=== PATIENT | female | born 1990 ===

== ENCOUNTER → 2020-06-11 12:51 | Outpatient (BNVA) | payer OTHER, SELFPAY | PROVIDERS: PCP Nurse Practitioner Family; Visit Provider Dietitian, Registered | DX: Z76.89 Persons encountering health services in other specified circumstances (principal) ==

== ENCOUNTER → 2020-06-23 13:27 | Outpatient (BNVA) | payer OTHER, SELFPAY | PROVIDERS: PCP Family Medicine; Referring Provider Family Medicine; Visit Provider Dietitian, Registered | DX: Z76.89 Persons encountering health services in other specified circumstances (principal) ==

== ENCOUNTER → 2020-06-25 11:29 | Outpatient (BNVA) | payer OTHER, SELFPAY | PROVIDERS: PCP Nurse Practitioner Family; Referring Provider Nurse Practitioner Family; Visit Provider Physician Assistant | DX: Z01.818 Encounter for other preprocedural examination (principal) | CPT/HCPCS: 99211 ==

== ENCOUNTER 2020-06-25 16:50 | Outpatient (REF) | payer OTHER, SELFPAY ==
[2020-06-28 14:06] LABS: H Pylori Breath Test DETECTED (NOT DETECTED)
== END 2020-06-25 16:51 | disposition home or self-care (01) ==
LOC: HO.LNP 16:50
PROVIDERS: Visit Provider Physician Assistant
DX: A04.8 Other specified bacterial intestinal infections (principal)
CPT/HCPCS: 83013

== ENCOUNTER → 2020-07-26 07:43 | Outpatient (BNVA) | payer OTHER, SELFPAY | PROVIDERS: Visit Provider Physician Assistant | DX: Z76.89 Persons encountering health services in other specified circumstances (principal) ==

== ENCOUNTER → 2020-08-24 08:32 | Outpatient (BNVA) | payer OTHER, SELFPAY | PROVIDERS: PCP Nurse Practitioner Family; Visit Provider Physician Assistant | DX: Z76.89 Persons encountering health services in other specified circumstances (principal) ==

== ENCOUNTER 2020-11-06 12:40 | Emergency (ER) | payer MEDICAID, SELFPAY ==
[2020-11-06] VITALS (7 sets, daily range): BP systolic 105–152; BP diastolic 66–97; PULSE 94–107; RESP 16–20; TEMP 36.9–37.4; O2SAT 99–100; BMI 27.1
--- NOTE | ~2020-11-06 | CT_ITS ---
EXAMINATION: CT ABDOMEN AND PELVIS WITHOUT CONTRAST CLINICAL INFORMATION: Status post liposuction, complains of diffuse drainage from incisional site. COMPARISON: CT scan of the abdomen and pelvis dated 09/05/2017. TECHNIQUE: Multidetector volumetric imaging was performed from the superior aspect of the liver through the pubic symphysis. Sagittal and coronal reformatted images were obtained on the technologist's workstation. Plaque of intravenous and oral contrast limits visceral evaluation. This CT examination was performed using dose optimization techniques as appropriate, variously including the following: *Automated exposure control *Adjustment of mA and/or kV according to patient size (this includes techniques or standardized protocols for targeted exams where dose is matched to indication/reason for exam; i.e. extremities or head) *Use of iterative reconstruction technique DLP: 628 mGy-cm FINDINGS: LUNG BASES: Mild bibasilar linear atelectasis versus scarring is seen. No pleural or pericardial effusions. LIVER, GALLBLADDER, AND BILIARY TREE: No hepatic abnormality. Status post cholecystectomy. PANCREAS: Unremarkable. SPLEEN: Unremarkable. ADRENAL GLANDS: Unremarkable. KIDNEYS AND URETERS: Unremarkable. BLADDER: Unremarkable. GASTROINTESTINAL TRACT: Gastric postsurgical changes. The small bowel, appendix and large bowel are unremarkable. ABDOMINAL WALL: Diffuse subcutaneous air and infiltrative changes are seen throughout the visualized soft tissues extending superiorly from the inferior aspect of the right breast inferiorly to the level of the anterior left thigh. Air is also seen tracking between the left external and internal oblique muscles as well as subjacent to the left transversus abdominis muscle laterally. A definitive focal fluid collection is not seen. LYMPH NODES: No lymphadenopathy. VASCULAR: Unremarkable. PELVIC VISCERA: Anteverted/anteflexed uterus containing an IUD without associated abnormality. Mild free fluid in the cul-de-sac. OSSEOUS STRUCTURES: Unremarkable. CT/CT abdomen pelvis wo con IMPRESSION: 1. No significant intra-abdominal/pelvic abnormality. 2. Diffuse subcutaneous air and infiltrative changes in the visualized soft tissues as detailed above. Air is also seen tracking between the left internal/external oblique muscles as well as subjacent to the left transversus abdominis muscle. A definitive focal fluid collection is not seen. These findings are all presumed to be secondary to the patient's recent liposuction procedure. If findings persist or worsen, repeat CT scan is recommended to assess for change.
--- NOTE | 2020-11-06 14:30 | ED_ITS ---
HPI - General Adult General Chief complaint: General Medical Stated complaint: dizziness Time Seen by Provider: 11/06/20 14:13 Source: patient Mode of arrival: ambulatory Limitations: no limitations History of Present Illness HPI narrative: Patient comes emergency room complaining of dizziness/lightheadedness when she stands up. Patient states yesterday she had 360 liposuction , breast left with implants. Patient states that every time she stands up, she turns pale, feels lightheaded, thinks she is going to pass out. Patient states she has history of anemia, she has had multiple blood transfusions in the past. Also complaining of copious drainage from the incision sites in the pelvis. Patient denies fever or chills. Related Data Home Medications Medication Instructions Recorded Confirmed Celebrate MVI PO 07/26/20 Celebrate calcium PO 07/26/20 paroxetine HCl 20 mg tablet 20 mg PO DAILY 07/26/20 07/26/20 Allergies Allergy/AdvReac Type Severity Reaction Status Date / Time doxycycline [DOXYCYCLINE] Allergy Intermediate RASH/HIVES Verified 11/06/20 14:41 ?penicillin Allergy Unknown Unknown Uncoded 11/06/20 14:41 Review of Systems Review of Systems: Constitutional : No Weight loss, No Fever, No Chills, No Night Sweats, No Fatigue, No Malaise ENT/Mouth : No Hearing loss, No Ear Pain, No Nasal Congestion, No Sinus Pain, No Hoarseness, No sore throat, No Rhinorrhea, No Swallowing Difficulty Eyes: No Eye Pain, No Swelling, No Redness, No Foreign Body, No Discharge, No Vision Changes Cardiovascular : No Chest Pain, No SOB, No Dyspnea on Exertion, No Orthopnea, No Edema, No Palpitations Respiratory : No Cough, No Sputum, No Wheezing, No Smoke Exposure, No Dyspnea Gastrointestinal : Complaining of Nausea, No Vomiting, No Diarrhea, No Constipation, No abdominal Pain, No Hematochezia, No Melena Genitourinary : no irregular bleeding, No Dysuria, No Urinary Frequency, No Hematuria, No Urinary Incontinence, No Urgency, No Flank Pain, No Urinary Flow Changes, No Hesitancy Musculoskeletal : No joint pain, No Myalgias, No Joint Swelling Skin : Healing and draining incisions in abdomen and breast Neuro : No Weakness, No Numbness, No Paresthesias, No Loss of Consciousness, No Dizziness, No Headache Psych : No Anxiety/Panic, No Depression, No SI/HI/AH/VH, No Social Issues, Heme/Lymph: No Bruising, No Bleeding,No Lymphadenopathy Endocrine : No Polyuria, No Polydipsia, No Temperature Intolerance [facility] Past Medical History Medical History Intestinal malabsorption following gastrectomy Overweight (BMI 25.0-29.9) Surgical History History of sleeve gastrectomy Hx of carpal tunnel repair Hx of cholecystectomy S/P laparoscopic sleeve gastrectomy Family History Family History (Updated 07/19/20 @ 16:10 by Yudy Sosa MA) Father No problems noted. Mother High cholesterol Diabetes mellitus CVD (cardiovascular disease) Arthritis Brother No problems noted. Brother No problems noted. Sister No problems noted. Daughter No problems noted. Social History Social History (Updated 07/19/20 @ 16:10 by Yudy Sosa MA) Alcohol intake: never Smoking Status: Never smoker Smoked in Last 30 Days: No Use of substances other than those prescribed or required for medical reasons: No Advance Directives: No Advance Directives Information Provided: Yes Physical Exam Vital Signs: Vital Signs: Last Vital Signs Temp 98.5 F 11/06/20 15:32 Pulse 94 11/06/20 16:32 Resp 20 11/06/20 16:32 BP 105/70 11/06/20 16:32 Pulse Ox 100 11/06/20 16:32 Body Mass Index 27.1 Appearance: Alert. Oriented X3. No acute distress. Eyes: Pupils equal, round and reactive to light. ENT: Pharynx normal. Neck: Normal inspection. Neck supple. No lymph nodes noted. No crepitus CVS: Normal heart rate and rhythm. Pulses normal. Normal S1 and S2 Respiratory: No respiratory distress. Breath sounds normal. No Wheezing. No rales Abdomen: Soft tenderness over the suprapubic area over the incisional sites, No rigidity. No distention. Skin: Skin warm and dry. Multiple ecchymoses in abdomen and below the breasts, incision in the suprapubic area is draining mild to moderate amount of serosanguineous fluid when pressure is applied, no kim blood. Extremities: No lower extremity edema. No lower extremity edema. No Lacerations. No Rash Neuro: Oriented X 3. No motor deficit. No sensory deficit. Moving all extermities. No slurred speech. Course Course Course Narrative: Negative for the static vital signs. At this time, white blood cell count is 14.2, likely secondary to reactive leukocytosis, patient had surgery yesterday. Patient does not have fever, no chills, sepsis is not suspected at this time Patient may have a seroma. CT scan of the abdomen is pending. Sign-out given to Dr. Cordero. Medical Decision Making Lab Data Result diagrams: 11/06/20 14:40 11/06/20 14:40 Labs: Lab Results 11/06/20 11/06/20 Range/Units 14:40 14:40 WBC 14.2 H (4.8-10.8) X10*3/uL RBC 3.41 L (4.20-5.50) X10*6/uL Hgb 9.2 L (12.0-16.0) g/dl Hct 28.8 L (37-47) % MCV 84.5 (80-98) fL MCH 27.0 (27.0-33.0) pg MCHC 31.9 (31.0-35.0) g/dl RDW 13.3 (11.0-16.0) % Plt Count 228 (160-400) X10*3/uL MPV 9.6 (9.4-12.3) fL Immature Gran % (Auto) 0.3 (0.0-0.4) % Neut % (Auto) 80.3 H (45-73) % Lymph % (Auto) 11.2 L (20-40) % [place] % (Auto) 8.0 (2-11) % Eos % (Auto) 0.0 (0-4) % Baso % (Auto) 0.2 (0-2) % Lymph # (Auto) 1.6 (1.2-4.9) X10*3/uL [place] # (Auto) 1.1 (0.1-1.2) X10*3/uL Eos # (Auto) 0.0 (0.0-0.4) X10*3/uL Baso # (Auto) 0.0 (0.0-0.2) X10*3/uL Abs Immat Gran (auto) 0.04 H (0.00-0.03) X10*3/uL Absolute Neuts (auto) 11.4 H (2.0-8.3) X10*3/uL Absolute Nucleated RBC 0.000 (0.0-0.012) X10*3/uL Nucleated RBC % (auto) 0.0 (0.0-0.2) /100WBC Sodium 137 (135-145) mmol/L Potassium 4.1 (3.3-5.1) mmol/L Chloride 105 (96-108) mmol/L Carbon Dioxide 25 (22-29) mmol/L Anion Gap 11 L (12-20) BUN 10 (9-16) mg/dL Creatinine 0.68 (0.5-1.4) mg/dL Estim Creat Clear Calc 117.4 Estimated GFR > 60 Random Glucose 118 H (60-115) mg/dL Calcium 8.4 (8.4-10.2) mg/dL Beta HCG, Quant < 2 mIU/mL Discharge Plan Discharge Prescriptions: No Action paroxetine HCl 20 mg tablet 20 mg PO DAILY RF: 0 Celebrate MVI PO RF: 0 Celebrate calcium PO RF: 0
[2020-11-06] MEDS: 0.9 % Sodium Chloride 1,000 ML 999 ML IVCONT (14:40)
[2020-11-06 14:44] LABS: MANUAL DIFF FLAG NO
[2020-11-06] MEDS: ondansetron HCL 4 MG/2 ML VIAL IVPUSH (14:44)
[2020-11-06 14:53] LABS: Basophils Percent Auto 0.2 % (0-2); Hematocrit 28.8 % (37-47); Hemoglobin 9.2 g/dl (12.0-16.0); Imm Gran Abs Auto 0.04 X10*3/uL (0.00-0.03); Imm Gran Pct Auto 0.3 % (0.0-0.4); Lymphocytes Absolute Auto 1.6 X10*3/uL (1.2-4.9); Lymphocytes Percent Auto 11.2 % (20-40); Mean Corpuscular HGB Conc 31.9 g/dl (31.0-35.0); Mean Corpuscular Volume 84.5 fL (80-98); Mean Platelet Volume 9.6 fL (9.4-12.3); Monocytes Absolute Auto 1.1 X10*3/uL (0.1-1.2); Neutrophils Absolute Auto 11.4 X10*3/uL (2.0-8.3); Neutrophils Percent Auto 80.3 % (45-73); Platelet Count 228 X10*3/uL (160-400); Red Blood Count 3.41 X10*6/uL (4.20-5.50); Red Cell Distribution Width 13.3 % (11.0-16.0); White Blood Count 14.2 X10*3/uL (4.8-10.8)
[2020-11-06 15:18] LABS: Anion Gap 11 (12-20); Blood Urea Nitrogen 10 mg/dL (9-16); Calcium 8.4 mg/dL (8.4-10.2); Carbon Dioxide 25 mmol/L (22-29); Chloride 105 mmol/L (96-108); Creatinine Clr Calc Pharmacy 117.4; Estimated Glomerular Filt Rate > 60; Glucose Random 118 mg/dL (60-115); Potassium 4.1 mmol/L (3.3-5.1); Sodium 137 mmol/L (135-145)
[2020-11-06 15:26] LABS: HCG Quantitative < 2 mIU/mL
[2020-11-06] MEDS: oxyCODONE HCl Immed Release 5 MG TABLET PO (18:07)
== END 2020-11-06 18:15 | disposition home or self-care (01) ==
PROVIDERS: Emergency Provider Emergency Medicine; PCP Nurse Practitioner Family
DX: R42 Dizziness and giddiness (principal); G89.18 Other acute postprocedural pain; Z98.84 Bariatric surgery status
CPT/HCPCS: 36415; 74176; 80048; 84702; 85025; 96361; 96374; 99284; J2405

== ENCOUNTER 2021-01-26 09:00 | Emergency (ER) | payer MEDICAID, SELFPAY ==
--- NOTE | ~2021-01-26 | XR_ITS ---
EXAMINATION: XR RIBS, RIGHT CLINICAL INFORMATION: Right-sided pain COMPARISON: Chest radiographs 12/25/2018, 04/15/2018 TECHNIQUE: Frontal view chest and 3 views right ribs are obtained for a total of 4 views. FINDINGS: The lungs are clear. There is no pneumothorax, pleural reaction, airspace consolidation, or effusion. The heart is normal in size. The vascularity is normal. The hilar and mediastinal contours are unremarkable. There are numerous surgical clips overlying upper abdomen and some overlying right lateral chest wall soft tissues. The right ribs show no fracture or destructive process. No periostitis. XR/XR ribs RT min 3V w CXR1V IMPRESSION: Unremarkable examination.
--- NOTE | ~2021-01-26 | XR_ITS ---
EXAMINATION: XR LUMBOSACRAL SPINE CLINICAL INFORMATION: Pain COMPARISON: Radiographs lumbar spine 03/02/2016 TECHNIQUE: Three views of the lumbosacral spine. FINDINGS: There is normal lumbar segmentation with 5 nonrib-bearing lumbar vertebrae of normal height and normal lumbar lordosis. There is no lumbar vertebral compression or visible fracture. No destructive process. There is borderline disc narrowing L3-L4 with small anterior lumbar vertebral body spurring. No endplate sclerosis or erosive changes. The SI joints and visualized sacrum are unremarkable. There are multiple surgical clips upper abdomen. IUD seen overlying central pelvis. XR/XR lumbar spine 2-3V IMPRESSION: Unremarkable examination.
--- NOTE | 2021-01-26 09:21 | ED.ABDPAIN ---
HPI - Abdominal Pain General Chief Complaint: General Medical Stated Complaint: flank pain Time Seen by Provider: 01/26/21 09:21 Source: patient Mode of arrival: ambulatory Limitations: no limitations History of Present Illness MD elicited complaint: flank pain Pertinent past history: none Onset (ago): day(s) (2) Pain Consistency: constant Location: R flank Severity: moderate Quality: aching and dull Radiation: none Migration to: no migration Exacerbating factors: movement Relieving factors: rest Associated symptoms: denies other symptoms Related Data Home Medications Medication Instructions Recorded Confirmed Celebrate MVI PO 07/26/20 Celebrate calcium PO 07/26/20 paroxetine HCl 20 mg tablet 20 mg PO DAILY 07/26/20 07/26/20 Previous Rx's Medication Instructions Recorded cyclobenzaprine 10 mg PO TID PRN #14 tab 01/26/21 lidocaine 1 patch TOPICAL DAILY PRN #10 ea 01/26/21 Allergies Allergy/AdvReac Type Severity Reaction Status Date / Time doxycycline [DOXYCYCLINE] Allergy Intermediate RASH/HIVES Verified 11/06/20 14:41 ?penicillin Allergy Unknown Unknown Uncoded 11/06/20 14:41 Review of Systems Review of Systems Constitutional : No Weight loss, No Fever, No Chills, ENT/Mouth : No Hearing loss, No Ear Pain, No Nasal Congestion, No Sinus Pain, No Hoarseness, No sore throat, No Rhinorrhea, No Swallowing Difficulty Cardiovascular : No Chest Pain, No SOB Respiratory : No Cough, No Dyspnea Gastrointestinal : No Nausea, No Vomiting, No Diarrhea, No abdominal Pain, No Hematochezia, No Melena Genitourinary : No Dysuria, No Urinary Frequency, No Hematuria, No Urinary Incontinence, Musculoskeletal : positive back pain Skin : No Skin Lesions, No rash Neuro : No Weakness, No Numbness, No Paresthesias, no loss of bowel or bladder incontinence, no saddle anesthesia Physical Exam Vital Signs: Vital Signs: Last Vital Signs Temp 98.2 F 01/26/21 09:53 Pulse 73 01/26/21 09:53 Resp 18 01/26/21 09:53 BP 126/86 01/26/21 09:53 Pulse Ox 100 01/26/21 09:53 Body Mass Index 28.8 Appearance: Alert. Oriented X3. No acute distress. Eyes: Pupils equal, round and reactive to light. ENT: Pharynx normal. Neck: Normal inspection. Neck supple. CVS: Normal heart rate and rhythm. Pulses normal. Respiratory: No respiratory distress. Breath sounds normal. Abdomen: Soft and nontender. Back: ttp along R posterior ribs and R lower lumbar region lateral not midline Skin: Skin warm and dry. Normal skin color. Normal skin turgor. Extremities: No lower extremity edema. No calf ttp Neuro: Oriented X 3. No motor deficit. No sensory deficit. Course Course Course Narrative: negative UA and xrays seems unusual for renal colic stable for DC MDM - Abdominal Pain MDM Narrative Medical decision making narrative: 30 yo female atraumatic R back pain no b/b incontinence, no saddle anesthesia no AC therapy, no IVDA worse with movements, her abdomen is benign, no GI or symptoms ?strain at this time xrays orderd, UA ordered Lab Data Labs: Lab Results 01/26/21 01/26/21 Range/Units 09:53 09:53 Urine Color YELLOW Urine Appearance HAZY Urine pH 6.0 (5.0-8.0) Ur Specific [place] >= 1.030 H (1.005-1.025) Urine Protein NEG (NEG-TRACE) MG/DL Urine Glucose (UA) NEG (NEG) MG/DL Urine Ketones NEG (NEG) MG/DL Urine Blood TRACE (NEG) Urine Nitrite NEG (NEG) Ur Leukocyte Esterase NEG (NEG) Urine RBC 0-2 (0) /HPF Urine WBC 0-2 (0-4) /HPF Ur Squamous Epith Cells 3+ /LPF Urine Bacteria 2+ /LPF Urine Mucus 1+ /LPF Urine Test NEGATIVE (NEGATIVE) Discharge Plan Discharge Patient Disposition: Home, Self-Care Instructions: Acute Low Back Pain (ED) Additional Instructions: return to ED for any worsening symptoms or concerns Prescriptions: New cyclobenzaprine 10 mg tablet 10 mg PO TID PRN (Reason: muscle spasm) Qty: 14 RF: 0 lidocaine 4 % adhesive patch,medicated 1 patch topical DAILY PRN (Reason: pain) Qty: 10 RF: 0 No Action paroxetine HCl 20 mg tablet 20 mg PO DAILY RF: 0 Celebrate MVI PO RF: 0 Celebrate calcium PO RF: 0 Referrals: Physician,Unknown [Primary Care Provider] - 2 days (if not better) Stand Alone Forms: Work/School Release [facility] Past Medical History Attestation statement: The following information was validated with the patient. Medical History Intestinal malabsorption following gastrectomy Overweight (BMI 25.0-29.9) Surgical History History of sleeve gastrectomy Hx of carpal tunnel repair Hx of cholecystectomy S/P laparoscopic sleeve gastrectomy Family History Family History (Updated 07/19/20 @ 16:10 by Yudy Sosa MA) Father No problems noted. Mother High cholesterol Diabetes mellitus CVD (cardiovascular disease) Arthritis Brother No problems noted. Brother No problems noted. Sister No problems noted. Daughter No problems noted. Social History Social History (Updated 01/26/21 @ 09:35 by Mary Marshall DO) Alcohol intake: never Patient Tobacco Use Status: Never used Tobacco Advance Directives: Yes Advance Directives Information Provided: No Advance Directives on File: No Patient : No
[2021-01-26 09:53] VITALS: BP 126/86; PULSE 73; RESP 18; TEMP 36.8; O2SAT 100; BMI 28.8
[2021-01-26 10:08] LABS: Glucose Urine UA NEG (NEG); Leukocyte Esterase Urine NEG (NEG); Nitrite Urine NEG (NEG); Specific Gravity - Urine >= 1.030 (1.005-1.025); Urine Blood TRACE (NEG); Urine Ketones NEG (NEG); Urine Protein NEG (NEG-TRACE)
[2021-01-26 10:12] LABS: Appearance Urine HAZY; Color Urine YELLOW
[2021-01-26 10:13] LABS: UPreg QC Valid YES; Urine Pregnancy NEGATIVE (NEGATIVE)
[2021-01-26 10:44] LABS: Bacteria Urine 2+ /LPF; Mucus Urine 1+ /LPF; RBC Urine 0-2 /HPF (0); Squamous Epithelial Cell Urine 3+ /LPF; WBC Urine 0-2 /HPF (0-4)
== END 2021-01-26 11:20 | disposition home or self-care (01) ==
PROVIDERS: Emergency Provider Emergency Medicine
DX: M54.5 Low back pain (principal); Z98.84 Bariatric surgery status; Z90.49 Acquired absence of other specified parts of digestive tract
CPT/HCPCS: 71101; 72100; 81001; 81025; 99283

== ENCOUNTER 2021-03-11 11:31 | Outpatient (REF) | payer MEDICAID, SELFPAY | END 2021-03-11 11:32 | disposition home or self-care (01) | LOC: HO.LAB 11:31 | PROVIDERS: Visit Provider Internal Medicine | DX: Z20.822 Contact with and (suspected) exposure to COVID-19 (principal) | CPT/HCPCS: C9803; U0003; U0005 ==

== ENCOUNTER 2021-08-27 09:11 | Outpatient (REF) | payer MEDICAID, SELFPAY ==
[2021-08-27 09:51] LABS: COVID-19 Test Positive (Negative)
== END 2021-08-27 09:12 | disposition home or self-care (01) ==
LOC: HO.LAB 09:11
PROVIDERS: Visit Provider Internal Medicine
DX: Z20.822 Contact with and (suspected) exposure to COVID-19 (principal)
CPT/HCPCS: 36415; 87635; C9803

== ENCOUNTER 2021-10-18 11:31 | Outpatient (REF) | payer MEDICAID, SELFPAY ==
--- NOTE | ~2021-10-18 | XR_ITS ---
EXAMINATION: BILATERAL HIP X-RAY CLINICAL INFORMATION: Pain COMPARISON: None TECHNIQUE: 2 views of each hip FINDINGS: Bone alignment is normal. No fracture or dislocation is seen. The joint spaces are normal. There is an IUD in the pelvis. Soft tissues are otherwise normal. XR/XR hip RT min 2V IMPRESSION: Normal hip joints.
--- NOTE | ~2021-10-18 | XR_ITS ---
EXAMINATION: BILATERAL HIP X-RAY CLINICAL INFORMATION: Pain COMPARISON: None TECHNIQUE: 2 views of each hip FINDINGS: Bone alignment is normal. No fracture or dislocation is seen. The joint spaces are normal. There is an IUD in the pelvis. Soft tissues are otherwise normal. XR/XR hip LT min 2V IMPRESSION: Normal hip joints.
== END 2021-10-18 11:32 | disposition home or self-care (01) ==
LOC: HO.XRAY 11:31
PROVIDERS: PCP Internal Medicine; Visit Provider Internal Medicine
DX: M25.551 Pain in right hip (principal); M25.552 Pain in left hip
CPT/HCPCS: 73502

== ENCOUNTER → 2021-11-30 15:05 | Outpatient (BNVA) | payer MEDICAID, SELFPAY | PROVIDERS: PCP Internal Medicine; Referring Provider Physician Assistant; Visit Provider Physician Assistant Surgical | DX: E66.9 Obesity, unspecified (principal); Z68.31 Body mass index [BMI] 31.0-31.9, adult | CPT/HCPCS: 99212 ==

== ENCOUNTER 2021-12-01 11:09 | Outpatient (REF) | payer MEDICAID, SELFPAY ==
[2021-12-01 11:26] LABS: MANUAL DIFF FLAG NO
[2021-12-01 11:58] LABS: Basophils Absolute Auto 0.1 X10*3/uL (0.0-0.2); Basophils Percent Auto 0.8 % (0-2); Eosinophils Absolute Auto 0.4 X10*3/uL (0.0-0.4); Eosinophils Percent Auto 5.5 % (0-4); Hematocrit 39.5 % (37.0-47.0); Hemoglobin 12.3 g/dl (12.0-16.0); Imm Gran Abs Auto 0.01 X10*3/uL (0.00-0.03); Imm Gran Pct Auto 0.2 % (0.0-0.4); Lymphocytes Absolute Auto 2.1 X10*3/uL (1.2-4.9); Lymphocytes Percent Auto 33.4 % (20-40); Mean Corpuscular HGB Conc 31.1 g/dl (31.0-35.0); Mean Corpuscular Hemoglobin 26.6 pg (27.0-33.0); Mean Corpuscular Volume 85.5 fL (80.0-98.0); Mean Platelet Volume 9.8 fL (9.4-12.3); Monocytes Absolute Auto 0.5 X10*3/uL (0.1-1.2); Monocytes Percent Auto 7.1 % (2-11); Neutrophils Absolute Auto 3.4 x10*3/uL (2.0-8.3); Platelet Count 305 X10*3/uL (160-400); Red Blood Count 4.62 X10*6/uL (4.20-5.50); Red Cell Distribution Width 13.2 % (11.0-16.0); White Blood Count 6.4 X10*3/uL (4.8-10.8)
[2021-12-01 12:16] LABS: Anion Gap 12 (12-20); Blood Urea Nitrogen 14 mg/dL (9-16); C Reactive Protein 0.13 mg/dL (< or = 0.50); Calcium 9.7 mg/dL (8.4-10.2); Carbon Dioxide 28 mmol/L (22-29); Chloride 105 mmol/L (96-108); Cholesterol 178 mg/dL; Estimated Glomerular Filt Rate > 60; Glucose Random 83 mg/dL (60-115); HDL Cholesterol 44 mg/dL; Iron 104 mcg/dL (30-160); LDL Cholesterol Calculated 97 mg/dl; Percent Iron Saturation 28 % (15-50); Potassium 4.5 mmol/L (3.3-5.1); Sodium 140 mmol/L (135-145); Total Iron Binding Capacity 371 mcg/dL (228-428); Triglycerides 189 mg/dL; Unsaturated Iron Binding 267 ug/dL
[2021-12-01 12:31] LABS: TSH reflex Free T4 2.31 uIU/mL (0.32-4.0); Vitamin D 25-OH Total 27.6 ng/mL (>30)
[2021-12-01 12:55] LABS: Vitamin B12 175 pg/mL (200-900)
[2021-12-01 13:03] LABS: Ferritin 41 ng/mL (10-122)
[2021-12-02 15:00] LABS: Calcium (PTHI) 9.5 mg/dL (8.6-10.2); PTHI 62 pg/mL (16-77)
[2021-12-05 13:16] LABS: Vitamin B1 13 nmol/L (8-30)
[2021-12-06 12:17] LABS: Zinc 77 mcg/dL (60-130)
[2021-12-08 00:22] LABS: Vitamin A 48 mcg/dL (38-98)
== END 2021-12-01 11:10 | disposition home or self-care (01) ==
LOC: HO.LAB 11:09
PROVIDERS: PCP Internal Medicine; Visit Provider Physician Assistant Surgical
DX: E66.9 Obesity, unspecified (principal)
CPT/HCPCS: 36415; 80048; 80061; 82306; 82607; 82728; 82746; 83540; 83970; 84425; 84443; 84590; 84630; 85025; 86140

== ENCOUNTER 2022-04-21 10:51 | Outpatient (REF) | payer MEDICAID, SELFPAY ==
[2022-04-21 13:03] LABS: Syphilis Screen Nonreactive (Nonreactive)
[2022-04-21 21:35] LABS: CT PCR NOT DETECTED (Not Detect.); NG PCR NOT DETECTED (Not Detect.)
[2022-04-22 15:16] LABS: BV Int Neg Control Negative (Negative); BV Int Pos Control Positive (Positive)
[2022-04-24 03:39] LABS: HBc Num1 0.14 S/CO (0.00-0.79); HIV AB/AG Nonreactive (Nonreactive); HIV Num 1 0.06 S/CO (0.00-0.99); Hepatitis B Core Antibody Nonreactive (Nonreactive); ~Hepatitis C Antibody Nonreactive (Nonreactive)
== END 2022-04-21 10:52 | disposition home or self-care (01) ==
LOC: HO.LAB 10:51
PROVIDERS: PCP Internal Medicine; Visit Provider Advanced Practice Midwife
DX: Z30.432 Encounter for removal of intrauterine contraceptive device (principal); Z20.2 Contact with and (suspected) exposure to infections with a predominantly sexual mode of transmission; N89.8 Other specified noninflammatory disorders of vagina; E28.2 Polycystic ovarian syndrome
CPT/HCPCS: 36415; 58301; 86704; 86780; 86803; 87389; 87480; 87491; 87510; 87591; 87660

== ENCOUNTER → 2022-06-27 13:11 | Outpatient (BNVA) | payer MEDICAID, SELFPAY | PROVIDERS: PCP Internal Medicine; Referring Provider Internal Medicine; Visit Provider Physician Assistant Surgical | DX: E66.9 Obesity, unspecified (principal); K21.9 Gastro-esophageal reflux disease without esophagitis; Z98.84 Bariatric surgery status; Z68.31 Body mass index [BMI] 31.0-31.9, adult | CPT/HCPCS: 99212 ==

== ENCOUNTER 2023-06-05 10:54 | Outpatient (REF) | payer MEDICAID, SELFPAY | END 2023-06-05 10:55 | disposition home or self-care (01) | LOC: HO.HHCL 10:54 | PROVIDERS: Visit Provider Internal Medicine | DX: Z11.4 Encounter for screening for human immunodeficiency virus [HIV] (principal); Z11.3 Encounter for screening for infections with a predominantly sexual mode of transmission; N89.8 Other specified noninflammatory disorders of vagina | CPT/HCPCS: 0353U; 36415; 84702; 86704; 86706; 86709; 86780; 86803; 87340; 87389; 87480; 87510; 87660 ==

== ENCOUNTER 2023-07-24 13:25 | Outpatient (AMB) | payer MEDICAID, SELFPAY ==
--- NOTE | 2023-07-24 13:32 | A.OFFVIS_ITS ---
Intake VS Expanded 07/24/23 13:39 BP 138/90 H Blood Pressure Location Rt brachial Blood Pressure Position Sitting Pulse 80 Pulse Source Pulse Oximeter Temp 96.6 F L Temperature Source Temporal Artery Scan Pulse Oximetry 100 Oxygen Delivery Method Room Air Height 5 ft 5 in Weight 197 lb 12.8 oz BMI 32.9 Body Fat % 40.4 Body Fat Mass 79.8 Fat Free Mass 118.0 Visceral Fat Rating 8.0 Body Water % 42.8 Body Water Mass 84.6 Muscle Mass/Score 112.0 Basal Metabolic Rate/Score 1,652 Intake Visit Reasons: (OV) PO LSG 04/15/19 Allergies doxycycline [DOXYCYCLINE] Allergy (Intermediate, Verified 07/24/23 13:35) RASH/HIVES ?penicillin Allergy (Unknown, Uncoded 06/27/22 13:22) Unknown HPI HPI Comments History of Present Illness Details This?is a?32?yo female who is s/p LSG 04/15/2019. Presents for 4 year 3 month post op visit. Weight at last visit on 06/27/2022 was 189.4 pounds with a BMI of 31.5, weight today is 197.8 pounds, representing a 8.4 pound weight gain with a BMI today of 32.9.? No complaints of nausea, emesis, abdominal pain or reflux, or constipation. Was up to 206lbs a few weeks ago. Feels restriction lately when she eats. Somet imes skips meals. [place] better after a course of pantoprazole. Nonsmoker, rare EtOH, no NSAIDs. Present meal plan includes: nothing structured; will have salads with croutons and apples/avocados for dinner Exercise routine includes: nothing formal but active at work ([employer] [facility]) [facility] Medical History (Updated 06/27/22 @ 14:04 by BRENT Whittington) PCOS (polycystic ovarian syndrome) Intestinal malabsorption following gastrectomy Overweight (BMI 25.0-29.9) Surgical History (Updated 07/24/23 @ 13:36 by Jessica Nicole CMA) Hx of breast augmentation S/P laparoscopic sleeve gastrectomy History of sleeve gastrectomy Hx of carpal tunnel repair Hx of cholecystectomy Family History Father No problems noted. Mother High cholesterol Diabetes mellitus CVD (cardiovascular disease) Arthritis Brother Overdose Brother No problems noted. Sister No problems noted. Daughter No problems noted. 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 Proctor Code(s): Z98.84 - Bariatric surgery status Plan Pt still too low on protein intake. Recommended 2 shakes per day with 2 scoops each Celebrate 4:1, plus one small meal with protein and veg/salad. Reviewed not skipping meals and getting adequate protein intake to support weight loss and likely help intermittent stomach discomfort. Also encouraged resuming formal exercise as pt not currently doing any. Labs ordered. RTC 2 months. Meal plan texted to pt and encouraged her to reach out to me between appts with any concerns. Patient is obese and is not considered stable at this time. I spent a total of 30 minutes reviewing/updating records, examining the patient and counseling the patient on weight management as detailed above. Orders: Orders Insulin Today E66.9 - Obesity, unspecified, Z98.84 - Bariatric surgery status Hemoglobin A1c Today E66.9 - Obesity, unspecified, Z98.84 - Bariatric surgery status Complete Blood Count Auto Diff Today E66.9 - Obesity, unspecified, Z98.84 - Ravin atric surgery status Lipid Panel Today E66.9 - Obesity, unspecified, Z98.84 - Bariatric surgery status Vitamin B1 Today E66.9 - Obesity, unspecified, Z98.84 - Bariatric surgery status TSH reflex Free T4 Today E66.9 - Obesity, unspecified, Z98.84 - Bariatric surgery status Ferritin Today E66.9 - Obesity, unspecified, Z98.84 - Bariatric surgery status IRON PROFILE Today E66.9 - Obesity, unspecified, Z98.84 - Bariatric surgery status Comprehensive Met. Panel Today E66.9 - Obesity, unspecified, Z98.84 - Bariatric surgery status Vitamin B12 and Folate Today E66.9 - Obesity, unspecified, Z98.84 - Bariatric surgery status Zinc Today E66.9 - Obesity, unspecified, Z98.84 - Bariatric surgery status C Reactive Protein Today E66.9 - Obesity, unspecified, Z98.84 - Bariatric surgery status Vitamin A Today E66.9 - Obesity, unspecified, Z98.84 - Bariatric surgery status Vitamin D 25-OH Total Today E66.9 - Obesity, unspecified, Z98.84 - Bariatric surgery status Coding Level of Care Code Est Pt Level 4 (77589) Diagnoses Obesity (BMI 30-39.9) E66.9 S/P laparoscopic sleeve gastrectomy Z98.84
[2023-07-24 13:39] VITALS: BP 138/90; PULSE 80; TEMP 35.9; O2SAT 100; BMI 32.9
== END 2023-07-24 14:00 | disposition home or self-care (01) ==
PROVIDERS: PCP Internal Medicine; Visit Provider Physician Assistant Surgical
DX: E66.9 Obesity, unspecified (principal); Z98.84 Bariatric surgery status
CPT/HCPCS: 99214

== ENCOUNTER → 2023-07-24 13:25 | Outpatient (BNVA) | payer MEDICAID, SELFPAY | PROVIDERS: PCP Internal Medicine; Visit Provider Physician Assistant Surgical | DX: E66.9 Obesity, unspecified (principal); K90.49 Malabsorption due to intolerance, not elsewhere classified; E28.2 Polycystic ovarian syndrome; Z68.32 Body mass index [BMI] 32.0-32.9, adult; Z90.3 Acquired absence of stomach [part of] | CPT/HCPCS: 99212 ==

== ENCOUNTER 2023-07-25 13:56 | Outpatient (REF) | payer MEDICAID, SELFPAY ==
[2023-07-25 14:09] LABS: MANUAL DIFF FLAG NO
[2023-07-25 14:42] LABS: Basophils Absolute Auto 0.1 X10*3/uL (0.0-0.2); Basophils Percent Auto 0.9 % (0-2); Eosinophils Absolute Auto 0.2 X10*3/uL (0.0-0.4); Eosinophils Percent Auto 2.3 % (0-4); Hematocrit 38.9 % (37.0-47.0); Hemoglobin 12.5 g/dl (12.0-16.0); Imm Gran Abs Auto 0.02 X10*3/uL (0.00-0.03); Imm Gran Pct Auto 0.3 % (0.0-0.4); Lymphocytes Percent Auto 28.9 % (20-40); Mean Corpuscular HGB Conc 32.1 g/dl (31.0-35.0); Monocytes Absolute Auto 0.3 X10*3/uL (0.1-1.2); Monocytes Percent Auto 4.6 % (2-11); Neutrophils Absolute Auto 4.4 x10*3/uL (2.0-8.3); Platelet Count 317 X10*3/uL (160-400); Red Blood Count 4.63 X10*6/uL (4.20-5.50); Red Cell Distribution Width 13.5 % (11.0-16.0)
[2023-07-25 14:50] LABS: Estimated Average Glucose 120 mg/dL; Hemoglobin A1c % 5.8 % (<6.0)
[2023-07-25 15:21] LABS: Alanine Aminotransferase 11 U/L (0-31); Albumin Level 4.2 g/dL (3.5-5.0); Alkaline Phosphatase 59 U/L (39-117); Anion Gap 10 (12-20); Aspartate Amino Transferase 13 U/L (5-31); Bilirubin Total 0.4 mg/dL (0.0-1.0); Blood Urea Nitrogen 12 mg/dL (9-16); Calcium 9.5 mg/dL (8.4-10.2); Carbon Dioxide 30 mmol/L (22-29); Chloride 104 mmol/L (96-108); Cholesterol 160 mg/dL (<200); Estimated Glomerular Filt Rate > 60; Glucose Random 110 mg/dL (60-115); HDL Cholesterol 47 mg/dL (>40); Iron 67 mcg/dL (30-160); LDL Cholesterol Calculated 95 mg/dL (<100); Percent Iron Saturation 20 % (15-50); Potassium 3.6 mmol/L (3.3-5.1); Sodium 140 mmol/L (135-145); Total Iron Binding Capacity 340 mcg/dL (228-428); Total Protein 7.8 g/dL (6.5-8.0); Triglycerides 93 mg/dL (<150); Unsaturated Iron Binding 273 ug/dL
[2023-07-25 15:37] LABS: Ferritin 31 ng/mL (10-122); Insulin 17 uU/mL (2-29); TSH reflex Free T4 1.61 uIU/mL (0.32-4.0); Vitamin D 25-OH Total 29.5 ng/mL (>30)
[2023-07-25 15:48] LABS: Folate 10.9 ng/mL (> or = 4.0); Vitamin B12 241 pg/mL (200-900)
[2023-07-28 01:08] LABS: Zinc 84 mcg/dL (60-130)
[2023-07-28 22:39] LABS: Vitamin A 56 mcg/dL (38-98)
[2023-07-29 12:18] LABS: Vitamin B1 9 nmol/L (8-30)
== END 2023-07-25 13:57 | disposition home or self-care (01) ==
LOC: HO.LAB 13:56
PROVIDERS: PCP Internal Medicine; Visit Provider Physician Assistant Surgical
DX: E66.9 Obesity, unspecified (principal); Z98.84 Bariatric surgery status
CPT/HCPCS: 36415; 80053; 80061; 82306; 82607; 82728; 82746; 83036; 83525; 83540; 84425; 84443; 84590; 84630; 85025; 86140

== ENCOUNTER 2023-10-01 14:41 | Outpatient (REF) | payer MEDICAID, SELFPAY ==
[2023-10-01 16:21] LABS: MANUAL DIFF FLAG NO
[2023-10-01 17:00] LABS: Basophils Absolute Auto 0.1 X10*3/uL (0.0-0.2); Basophils Percent Auto 0.6 % (0-2); Eosinophils Absolute Auto 0.2 X10*3/uL (0.0-0.4); Eosinophils Percent Auto 2.3 % (0-4); Hematocrit 38.9 % (37.0-47.0); Hemoglobin 12.2 g/dl (12.0-16.0); Imm Gran Abs Auto 0.02 X10*3/uL (0.00-0.03); Imm Gran Pct Auto 0.3 % (0.0-0.4); Lymphocytes Absolute Auto 1.5 X10*3/uL (1.2-4.9); Lymphocytes Percent Auto 18.7 % (20-40); Mean Corpuscular HGB Conc 31.4 g/dl (31.0-35.0); Mean Corpuscular Volume 82.8 fL (80.0-98.0); Mean Platelet Volume 9.7 fL (9.4-12.3); Monocytes Absolute Auto 0.6 X10*3/uL (0.1-1.2); Monocytes Percent Auto 7.2 % (2-11); Neutrophils Absolute Auto 5.7 x10*3/uL (2.0-8.3); Neutrophils Percent Auto 70.9 % (45-73); Platelet Count 356 X10*3/uL (160-400); Red Cell Distribution Width 13.2 % (11.0-16.0)
[2023-10-01 17:18] LABS: Iron 90 mcg/dL (30-160); Percent Iron Saturation 25 % (15-50); Total Iron Binding Capacity 358 mcg/dL (228-428); Unsaturated Iron Binding 268 ug/dL
[2023-10-01 17:44] LABS: Folate 11.3 ng/mL (> or = 4.0); Vitamin B12 266 pg/mL (200-900)
[2023-10-02 07:41] LABS: HBS Num1 28.67 mIU/mL (0-7.99); HBc Num1 0.07 S/CO (0.00-0.79); HBsAGNum1 1.09 S/CO (0.00-0.99); HIV AB/AG Nonreactive (Nonreactive); HIV Num 1 0.14 S/CO (0.00-0.99); Hepatitis B Core Antibody Nonreactive (Nonreactive); ~HepC Num1 0.09 S/CO (0.00-0.79); ~Hepatitis A Antibody IgM Nonreactive (Nonreactive); ~Hepatitis B Surface Antibody REACTIVE (Nonreactive); ~Hepatitis C Antibody Nonreactive (Nonreactive)
[2023-10-02 09:07] LABS: HBsAGNum2 Nonreactive; HBsAGNum3 Nonreactive; Hepatitis B Surface Antigen NEGATIVE (Negative)
[2023-10-03 19:53] LABS: RPR Rapid Plasma Reagin NON-REACTIVE (NON-REACTIVE)
== END 2023-10-01 14:42 | disposition home or self-care (01) ==
LOC: HO.HHCL 14:41
PROVIDERS: Visit Provider Emergency Medicine
DX: I10 Essential (primary) hypertension (principal); Z72.51 High risk heterosexual behavior
CPT/HCPCS: 36415; 82607; 82746; 83540; 85025; 86592; 86704; 86706; 86709; 86803; 87340; 87389

== ENCOUNTER 2023-10-01 19:41 | Outpatient (REF) | payer MEDICAID, SELFPAY ==
[2023-10-04 00:08] LABS: C. trachomatis RNA TMA NOT DETECTED (NOT DETECTED); Candida glabrata RNA NOT DETECTED (NOT DETECTED); Candida species RNA DETECTED (NOT DETECTED); N. gonorrhoeae RNA TMA NOT DETECTED (NOT DETECTED); Trichomonas vaginalis RNA NOT DETECTED (NOT DETECTED)
== END 2023-10-01 19:42 | disposition home or self-care (01) ==
LOC: HO.HHCLNP 19:41
PROVIDERS: Visit Provider Emergency Medicine
DX: R05.9 Cough, unspecified (principal)
CPT/HCPCS: 36415; 81513; 82607; 82746; 83540; 85025; 86592; 86704; 86706; 86709; 86803; 87070; 87340; 87389; 87481; 87491; 87591; 87661

== ENCOUNTER 2024-01-17 10:26 | Outpatient (REF) | payer MEDICAID, SELFPAY ==
[2024-01-17 12:25] LABS: HIV AB/AG Nonreactive (Nonreactive); HIV Num 1 0.04 S/CO (0.00-0.99); ~Hepatitis C Antibody Nonreactive (Nonreactive)
[2024-01-17 12:26] LABS: Anion Gap 14 (12-20); Blood Urea Nitrogen 11 mg/dL (9-16); Calcium 9.3 mg/dL (8.4-10.2); Carbon Dioxide 28 mmol/L (22-29); Chloride 104 mmol/L (96-108); Estimated Glomerular Filt Rate > 60; Glucose Random 128 mg/dL (60-115); Potassium 3.7 mmol/L (3.3-5.1); Sodium 142 mmol/L (135-145)
[2024-01-18 05:48] LABS: CT PCR NOT DETECTED (Not Detect.); NG PCR NOT DETECTED (Not Detect.)
[2024-01-18 09:04] LABS: RPR Rapid Plasma Reagin NON-REACTIVE (NON-REACTIVE)
[2024-01-23 14:17] LABS: C. Trachomatis RNA TMA, Throat NOT DETECTED; N. gonorrhoeae RNA TMA, Throat NOT DETECTED
== END 2024-01-17 10:27 | disposition home or self-care (01) ==
LOC: HO.HHCL 10:26
PROVIDERS: Emergency Medicine; Visit Provider Family Medicine
DX: I10 Essential (primary) hypertension (principal); B37.31 Acute candidiasis of vulva and vagina; Z11.3 Encounter for screening for infections with a predominantly sexual mode of transmission
CPT/HCPCS: 0353U; 36415; 80048; 86592; 86803; 87086; 87389; 87491; 87591

== ENCOUNTER 2024-01-25 10:13 | Emergency (ER) | payer MEDICAID, SELFPAY ==
--- NOTE | ~2024-01-25 | XR_ITS ---
EXAMINATION: XR LUMBOSACRAL SPINE CLINICAL INFORMATION: Low back pain COMPARISON: 01/26/2021 TECHNIQUE: Three views of the lumbosacral spine. FINDINGS: There are 5 not ribs bearing vertebral bodies and lumbar spine. There is straightening of lumbar lordosis. Vertebral bodies are well aligned and intervertebral discs are preserved. There is no evidence of spondylolysis lysis or listhesis. Sacroiliac joints and pedicles are unremarkable. Soft tissues are normal. XR/XR lumbar spine 2-3V IMPRESSION: Straightening of lumbar lordosis likely related to muscle
[2024-01-25 10:21] VITALS: BP 152/92; PULSE 88; RESP 18; TEMP 36.6; O2SAT 99; BMI 35.3
--- NOTE | 2024-01-25 11:37 | ED.BACK ---
HPI - Back Pain/Injury General Chief Complaint: Back Pain/Injury Stated Complaint: lower back pain Time Seen by Provider: 01/25/24 11:31 Source: patient and RN notes reviewed Mode of arrival: ambulatory Limitations: no limitations History of Present Illness ED Provider: Becki Bowden PA-C HPI Narrative: This is a 33-year-old female who presents emergency department with complaints of low back pain x3 days. Patient states that she was bending over and felt a popping sensation in her low back. She has had pain in her low back since. She has been taking naproxen for her symptoms with some relief. Denies any numbness or tingling. Denies saddle anesthesia. Denies urinary or bowel incontinence or retention. Denies history of back pain in the past. Denies any chest pain, shortness for breath, abdominal pain, nausea, vomiting or diarrhea. Denies urinary symptoms. No other complaints or concerns at this time. MD elicited complaint: back pain and back injury Pertinent past history: prior back pain Timing: constant Similar Symptoms Previously: No Quality: aching Location: left lower back Radiation: none Exacerbating factors: none Relieving factors: none Context: bending Associated symptoms: denies other symptoms Work related injury: No Related Data Previous Rx's ?Medication ?Instructions ?Recorded cholecalciferol (vitamin D3) 25 25 mcg PO DAILY #90 caps 07/31/23 mcg (1,000 unit) capsule acetaminophen 500 mg tablet 500 mg PO Q6H PRN pain #30 tabs 01/25/24 (Tylenol Extra Strength) cyclobenzaprine 10 mg tablet 10 mg PO TID PRN muscle spasm #14 01/25/24 tabs ibuprofen 600 mg tablet 600 mg PO Q6H PRN pain #30 tabs 01/25/24 Allergies Allergy/AdvReac Type Severity Reaction Status Date / Time doxycycline [DOXYCYCLINE] Allergy Intermediate RASH/HIVES Verified 01/25/24 10:23 ?penicillin Allergy Unknown Unknown Uncoded 06/27/22 13:22 Review of Systems Review of Systems: Yes all other systems are reviewed and are negative Constitutional: Constitutional: Reports as per HPI [facility] Past Medical History Medical History (Updated 01/25/24 @ 14:00 by BRENT Branch) PCOS (polycystic ovarian syndrome) Intestinal malabsorption following gastrectomy Overweight (BMI 25.0-29.9) Surgical History (Updated 07/24/23 @ 13:36 by Jessica Nicole CMA) Hx of breast augmentation S/P laparoscopic sleeve gastrectomy History of sleeve gastrectomy Hx of carpal tunnel repair Hx of cholecystectomy Family History Family History Father No problems noted. Mother High cholesterol Diabetes mellitus CVD (cardiovascular disease) Arthritis Brother Overdose Brother No problems noted. Sister No problems noted. Daughter No problems noted. 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 [employer] Sexual orientation: Straight/Heterosexual Gender identity: Female Physical Exam Vital Signs: Vital Signs: Last Vital Signs Temp 97.6 F 01/25/24 11:53 Pulse 77 01/25/24 11:53 Resp 14 01/25/24 11:53 BP 125/84 01/25/24 11:53 Pulse Ox 99 01/25/24 11:53 O2 Del Method Room Air 01/25/24 11:53 BMI result Body Mass Index 35.3 Const: General: cooperative, comfortable and no acute distress Orientation/consciousness: patient oriented x3 Limitations: no limitations HEENT: Head: Yes normal to inspection, Yes normocephalic and Yes atraumatic Ears: hearing grossly normal bilaterally General nose exam: Normal external nose present Face and sinus: Yes normal facial exam Mouth: Normal oral and palatal mucosa present, oropharynx normal and moist mucous membranes Throat: Yes posterior oropharynx normal Eyes: General: appearance normal, both eyes and all related structures Eyelids: Yes eyelids normal Conjunctivae: conjunctivae normal Sclerae: sclerae normal Pupils: Equal, round and reactive pupils present EOM: EOMs intact bilaterally Neck: Neck: Yes normal visual inspection, Yes full ROM and Yes no lymphadenopathy Lymphatic: no lymphadenopathy noted Chest: Chest palpation & inspection: normal inspection of the chest Resp: Effort & Inspection: normal respiratory effort and able to speak in complete sentences Auscultation: clear to auscultation bilaterally, no crackles, no rales, no rhonchi and no wheezes Cardio: Rate: regular rate Rhythm: regular rhythm Heart sounds: S1 normal heart sound present and S2 normal heart sound present GI: Inspection: Yes normal to inspection Back/Spine/Pelvis: Other: No midline spine tenderness, patient has tenderness palpation along the left SI joint and left lumbar musculature. No overlying skin changes. Skin: General skin exam: no rashes or lesions noted Trauma: no lacerations or abrasions Wounds: no wounds Neuro: General: patient oriented x3 and moves all extremities Cranial nerves: Yes Equal, round and reactive pupils present Extrem: General: Yes normal to inspection Right upper extremity: normal to inspection Left upper extremity: normal to inspection Right lower extremity: normal to inspection Left lower extremity: normal to inspection Course Reevaluation(s) Reevaluation #1: Straightening of the lumbar lordosis, likely related to muscle. Discussed findings with patient. She received Toradol. Reporting some relief. Will discharge on muscle relaxants, ibuprofen and Tylenol. Given return precautions. She understands and agrees with plan. Patient stable for discharge. Medications Administered Discontinued Medications Generic Name Dose Route Start Last Admin Trade Name Freq PRN Reason Stop Dose Admin Ketorolac Tromethamine 30 mg 01/25/24 11:42 01/25/24 12:10 Ketorolac Tromethamine 30 Mg/Ml Vial IM 01/25/24 11:43 Not Given ONCE ONE Medical Decision Making Medical Decision Making MDM Narrative: This is a 33-year-old female who presents emergency department with complaints of back pain x3 days. On arrival, patient mildly hypertensive at 152/92, all other vital signs within normal limits. This patient presents with back pain most consistent with back spasm. Differential diagnoses includes lumbago versus musculoskeletal spasm / strain versus sciatica.No back pain red flags on history or physical. Presentation not consistent with malignancy (lack of history of malignancy, lack of B symptoms), fracture (no trauma, no bony tenderness to palpation), cauda equina syndrome (no bowel or urinary incontinence/retention, no saddle anesthesia, no distal weakness), pyelonephritis (afebrile, no CVAT, no urinary symptoms). Given the clinical picture, will obtain x-rays for rule out of any bony abnormality. Differential Diagnosis Differential Diagnoses: The differential diagnosis associated with the presentation includes See above Lab Data MDM Lab Attestation statement: I reviewed the patient's lab results. Radiology Impression Discussion of test interpretation with radiology: I have reviewed the radiologist's reading. External Record Review External record reviewed: Inpatient record, Office record, Outpatient record, Prior outpatient labs, Prior outpatient radiology, Primary care record and Outside ED record Discharge Plan Discharge Clinical Impression: Back pain, Back muscle spasm Patient Disposition: Home, Self-Care Instructions: Acute Low Back Pain (ED), Muscle Spasm (ED), Back Pain (ED) Additional Instructions: You were seen in the emergency department due to back pain. Your x-rays reveal evidence of muscle spasms, no bony abnormality seen. Please rest, use ice or heat, take ibuprofen and or Tylenol as needed, and muscle relaxants. Flexeril as a muscle relaxant, can cause drowsiness, do not drink alcohol or drive while taking this medication. If any new or worsening symptoms occur including but not limited to worsening pain, numbness and tingling into your groin, problems using the restroom including but not limited to urinary/bowel retention or incontinence, please return for re-evaluation. Prescriptions: New ibuprofen 600 mg tablet 600 mg PO Q6H PRN (Reason: pain) Qty: 30 0RF acetaminophen [Tylenol Extra Strength] 500 mg tablet 500 mg PO Q6H PRN (Reason: pain) Qty: 30 0RF cyclobenzaprine 10 mg tablet 10 mg PO TID PRN (Reason: muscle spasm) Qty: 14 0RF No Action cholecalciferol (vitamin D3) 25 mcg (1,000 unit) capsule 25 mcg PO DAILY Qty: 90 3RF Stand Alone Forms: Work/School Release Print Language: Greek
[2024-01-25 11:53] VITALS: BP 125/84; PULSE 77; RESP 14; TEMP 36.4; O2SAT 99
[2024-01-25] MEDS: Ketorolac Tromethamine 30 MG/ML VIAL IM (13:30)
[2024-01-25 14:15] VITALS: BP 136/97; PULSE 79; RESP 16; TEMP 36.5; O2SAT 100
== END 2024-01-25 14:16 | disposition home or self-care (01) ==
PROVIDERS: Emergency Provider Emergency Medicine; PCP Internal Medicine
DX: M54.50 Low back pain, unspecified (principal); M62.830 Muscle spasm of back
CPT/HCPCS: 72100; 96372; 99284; J1885

== ENCOUNTER 2024-02-06 19:01 | Outpatient (REF) | payer MEDICAID, SELFPAY ==
[2024-02-07 13:17] LABS: Bacterial Vaginosis PCR POSITIVE (Negative); Candida Group PCR NOT DETECTED (Not Detect); Candida glab krusei PCR NOT DETECTED (Not Detect); Trichomonas vaginalis PCR NOT DETECTED (Not Detect)
[2024-02-07 13:53] LABS: CT PCR NOT DETECTED (Not Detect.); NG PCR NOT DETECTED (Not Detect.)
== END 2024-02-06 19:02 | disposition home or self-care (01) ==
LOC: HO.HHCLNP 19:01
PROVIDERS: Visit Provider Emergency Medicine
DX: R30.0 Dysuria (principal); R39.9 Unspecified symptoms and signs involving the genitourinary system
CPT/HCPCS: 0352U; 0353U; 87086

== ENCOUNTER 2024-03-18 14:13 | Outpatient (REF) | payer MEDICAID, SELFPAY ==
[2024-03-18 16:10] LABS: Hemoglobin 12.8 g/dl (12.0-16.0); Mean Corpuscular HGB Conc 32.8 g/dl (31.0-35.0); Mean Corpuscular Hemoglobin 27.2 pg (27.0-33.0); Platelet Count 383 X10*3/uL (160-400); Red Cell Distribution Width 13.5 % (11.0-16.0); White Blood Count 9.4 X10*3/uL (4.8-10.8)
[2024-03-18 16:45] LABS: Alanine Aminotransferase 15 U/L (0-31); Albumin Level 4.3 g/dL (3.5-5.0); Alkaline Phosphatase 67 U/L (39-117); Anion Gap 14 (12-20); Aspartate Amino Transferase 15 U/L (5-31); Bilirubin Total 0.2 mg/dL (0.0-1.0); Blood Urea Nitrogen 12 mg/dL (9-16); Calcium 9.8 mg/dL (8.4-10.2); Carbon Dioxide 25 mmol/L (22-29); Chloride 100 mmol/L (96-108); Estimated Glomerular Filt Rate > 60; Glucose Random 213 mg/dL (60-115); Potassium 3.4 mmol/L (3.3-5.1); Sodium 136 mmol/L (135-145); Total Protein 7.8 g/dL (6.5-8.0)
[2024-03-18 17:02] LABS: HCG Quantitative < 2 mIU/mL; TSH reflex Free T4 0.98 uIU/mL (0.32-4.0)
[2024-03-18 18:23] LABS: Estimated Average Glucose 143 mg/dL; Hemoglobin A1c % 6.6 % (<6.0)
[2024-03-19 08:44] LABS: Syphilis Screen Nonreactive (Nonreactive)
[2024-03-19 08:52] LABS: HBsAGNum1 0.25 S/CO (0.00-0.99); HIV AB/AG Nonreactive (Nonreactive); HIV Num 1 0.05 S/CO (0.00-0.99); Hepatitis B Surface Antigen Negative (Negative); ~HepC Num1 0.07 S/CO (0.00-0.79); ~Hepatitis C Antibody Nonreactive (Nonreactive)
[2024-03-19 12:08] LABS: CT PCR NOT DETECTED (Not Detect.); NG PCR NOT DETECTED (Not Detect.)
== END 2024-03-18 14:14 | disposition home or self-care (01) ==
LOC: HO.HHCL 14:13
PROVIDERS: Visit Provider Student in an Organized Health Care Education/Training Program
DX: R42 Dizziness and giddiness (principal); K76.0 Fatty (change of) liver, not elsewhere classified
CPT/HCPCS: 36415; 80053; 83036; 84443; 84702; 85027; 86780; 86803; 87340; 87389; 87491; 87591

== ENCOUNTER 2024-04-02 08:22 | Outpatient (AMB) | payer MEDICAID, SELFPAY ==
[2024-04-02 08:39] VITALS: BP 110/74; PULSE 80; BMI 34.3
--- NOTE | 2024-04-02 08:39 | A.OFFVIS_ITS ---
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 Hand Required: No Accompanied by: Self / Same As Patient Allergies doxycycline [DOXYCYCLINE] Allergy (Intermediate, Verified 01/25/24 10:23) RASH/HIVES ?penicillin Allergy (Unknown, Uncoded 06/27/22 13:22) Unknown Medication List - Last Reconciled 04/02/24 by Alfredo Marks MD acetaminophen (Tylenol Extra Strength) 500 mg PO Q6H PRN cholecalciferol (vitamin D3) 25 mcg PO DAILY cyclobenzaprine 10 mg PO TID PRN duloxetine (Cymbalta) 20 mg PO DAILY hydrochlorothiazide 25 mg PO DAILY ibuprofen 600 mg PO Q6H PRN lisinopril 10 mg PO DAILY ramelteon 8 mg PO BEDTIME HPI Comments Details: Nuria is here for consultation regarding question of an abnormal EKG. She does not have any known cardiac issues like coronary disease or myocardial infarction or cardiomyopathy or in fact any other cardiac concerns. Few months back, she was apparently having anxiety attack and also was sick from possibly viral infection. In that setting, she was seen at ER in [facility]. There was question of subtle EKG abnormalities. Hence she has been referred here. Patient herself does not really have any exertional angina or in fact any cardiac symptoms. She is fully active with no limitations. She states that her main concern is anxiety as whenever she gets anxious, she can get heart racing and other symptoms. However, when she is not anxious she feels completely normal. [facility] Medical History (Updated 04/02/24 @ 09:10 by Alfredo Marks MD) PCOS (polycystic ovarian syndrome) Intestinal malabsorption following gastrectomy Overweight (BMI 25.0-29.9) Surgical History (Updated 07/24/23 @ 13:36 by Jessica Nicole CMA) Hx of breast augmentation S/P laparoscopic sleeve gastrectomy History of sleeve gastrectomy Hx of carpal tunnel repair Hx of cholecystectomy Family History Father No problems noted. Mother High cholesterol Diabetes mellitus CVD (cardiovascular disease) Arthritis Brother Overdose Brother No problems noted. Sister No problems noted. Daughter No problems noted. 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 Gender identity: Female Female Reproductive History Menstrual Age of Menarche: 8 Review of Systems Const Denies chills, Denies daytime sleepiness, Denies fatigue, Denies fever(s), Denies poor appetite, Denies snoring, Denies stops breathing during sleep, Denies weakness, Denies weight gain and Denies weight loss Eyes Denies loss of vision ENT Denies dizziness and Denies hearing loss Card Denies chest pain, Denies irregular heart rhythm, Denies claudication, Denies leg edema, Denies lightheadedness, Denies palpitations, Denies dyspnea on exertion and Denies orthopnea Resp Denies cough, Denies excessive phlegm production, Denies dyspnea on exertion, Denies snoring and Denies wheezing GI Denies abdominal pain, Denies hematochezia, Denies change in bowel habits, Denies nausea and Denies vomiting Denies urinary frequency and Denies dysuria Musc Denies arthralgias, Denies muscle weakness, Denies numbness and Denies other Skin/Breast Denies nail changes and Denies rash Neuro Denies Abnormal speech present, Denies dizziness, Denies loss of vision, Denies memory loss, Denies numbness and Denies weakness Psych Denies depression and Denies memory loss Endo Denies fatigue and Denies palpitations Adriel/Lymph Denies easy bruising Aller/Immun Denies wheezing Physical Exam Vital Signs: Last Vital Signs Pulse 80 04/02/24 08:39 BP 110/74 04/02/24 08:39 BMI result Body Mass Index 34.3 Const General: comfortable and no acute distress Orientation/consciousness: patient oriented x3 HEENT Other: Unremarkable Head: Yes normal to inspection Neck Neck: Yes normal visual inspection Chest Chest palpation & inspection: normal inspection of the chest Resp Auscultation: clear to auscultation bilaterally Cardio Palpation: normal PMI Heart sounds: S1 normal heart sound present, S2 normal heart sound present, no gallops, no murmurs and no rubs GI Palpation (GI): Soft to palpation Back/Spine/Pelvis Other: unremarkable Skin General skin exam: no rashes or lesions noted Neuro General: patient oriented x3 Speech: No Abnormal speech present Extrem General: Yes normal to inspection Psych Mental Status: mental status grossly normal Assessment & Plan Assessment & Plan (1) Cardiac function test abnormal: Code(s): R94.30 - Abnormal result of cardiovascular function study, unspecified Category: Medical Plan EKG from December-mild sinus tachycardia at a rate of 101/Min; slight nonspecific changes in lead 3 and AVF but otherwise unremarkable. Normal CT and corrected QT. These findings are nonspecific and likely within normal limits. Especially in the absence of any symptoms or any other objective findings, no clinical significance. If she indeed gets any specific cardiac symptoms like angina, advised her to contact us. Otherwise, mainly reassurance. Coding Level of Care Code New Pt Level 3 (19378) Diagnoses Cardiac function test abnormal R94.30
== END 2024-04-02 09:27 | disposition home or self-care (01) ==
PROVIDERS: PCP Internal Medicine; Referring Provider Internal Medicine; Visit Provider Internal Medicine
DX: R94.30 Abnormal result of cardiovascular function study, unspecified (principal)
CPT/HCPCS: 99203

== ENCOUNTER → 2024-04-02 08:22 | Outpatient (BNVA) | payer MEDICAID, SELFPAY | PROVIDERS: PCP Internal Medicine; Visit Provider Internal Medicine | DX: R94.30 Abnormal result of cardiovascular function study, unspecified (principal) | CPT/HCPCS: 99202 ==

== ENCOUNTER 2024-06-17 10:46 | Emergency (ER) | payer MEDICAID, SELFPAY ==
[2024-06-17 10:59] VITALS: BP 176/116; PULSE 95; RESP 18; TEMP 36.6; O2SAT 100; BMI 35.2
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
--- NOTE | 2024-06-17 11:48 | PC.NURSE ---
pelvic performed by provider. swabs obtained/sent to lab by tech.
[2024-06-17 11:55] LABS: MANUAL DIFF FLAG NO
[2024-06-17 11:59] LABS: Appearance Urine Clear; Basophils Absolute Auto 0.1 X10*3/uL (0.0-0.2); Basophils Percent Auto 0.9 % (0-2); Color Urine Dark Yellow; Eosinophils Absolute Auto 0.2 X10*3/uL (0.0-0.4); Eosinophils Percent Auto 1.7 % (0-4); Glucose Urine UA 100 mg/dL (Negative); Hematocrit 39.1 % (37.0-47.0); Hemoglobin 12.9 g/dl (12.0-16.0); Imm Gran Abs Auto 0.02 X10*3/uL (0.00-0.03); Imm Gran Pct Auto 0.2 % (0.0-0.4); Leukocyte Esterase Urine Negative (Negative); Lymphocytes Absolute Auto 1.7 X10*3/uL (1.2-4.9); Lymphocytes Percent Auto 19.6 % (20-40); Mean Corpuscular Hemoglobin 27.3 pg (27.0-33.0); Mean Corpuscular Volume 82.7 fL (80.0-98.0); Mean Platelet Volume 9.2 fL (9.4-12.3); Monocytes Absolute Auto 0.4 X10*3/uL (0.1-1.2); Monocytes Percent Auto 4.8 % (2-11); Neutrophils Absolute Auto 6.3 x10*3/uL (2.0-8.3); Neutrophils Percent Auto 72.8 % (45-73); Nitrite Urine Negative (Negative); PH 5.5 (5.0-9.0); Platelet Count 321 X10*3/uL (160-400); Red Blood Count 4.73 X10*6/uL (4.20-5.50); Red Cell Distribution Width 13.7 % (11.0-16.0); Specific Gravity - Urine >= 1.030 (1.005-1.025); UMIC TRIGGER UACC YES; Urine Blood Small (1+) (Negative); Urine Ketones Trace mg/dL (Negative); Urine Protein 30 (1+) mg/dL (Neg-Trace); White Blood Count 8.6 X10*3/uL (4.8-10.8)
[2024-06-17 12:01] LABS: Bacteria Urine 1+ (None Seen); Hyaline Casts Urine 0-2 /LPF (0-2); UPreg QC Valid YES; Urine Pregnancy NEGATIVE (NEGATIVE); WBC Urine 0-5 /HPF (0-5)
[2024-06-17 12:19] LABS: Alanine Aminotransferase 17 U/L (0-31); Albumin Level 4.4 g/dL (3.5-5.0); Alkaline Phosphatase 67 U/L (39-117); Anion Gap 9 (12-20); Aspartate Amino Transferase 23 U/L (5-31); Bilirubin Direct 0.2 mg/dL (0.0-0.5); Bilirubin Total 0.6 mg/dL (0.0-1.0); Blood Urea Nitrogen 12 mg/dL (9-16); Calcium 9.7 mg/dL (8.4-10.2); Carbon Dioxide 28 mmol/L (22-29); Chloride 105 mmol/L (96-108); Creatinine Clr Calc Pharmacy 118.3; Estimated Glomerular Filt Rate > 60; Glucose Random 150 mg/dL (60-115); Magnesium 1.9 mg/dL (1.6-2.6); Potassium 3.3 mmol/L (3.3-5.1); Sodium 139 mmol/L (135-145); Total Protein 7.8 g/dL (6.5-8.0)
[2024-06-17 12:28] VITALS: BP 131/97; PULSE 84; RESP 18; TEMP 36.8; O2SAT 98
[2024-06-17] MEDS: Azithromycin 500 MG TABLET 1000 MG PO (12:30)
[2024-06-17] MEDS: cefTRIAXone sodium 500 MG, Lidocaine HCl 1 % MPF 1 ML IM (12:32)
--- NOTE | 2024-06-17 12:34 | PC.NURSE ---
medication administered per provider order.
[2024-06-17 12:35] VITALS: BP 131/97; PULSE 84; RESP 18; TEMP 36.8; O2SAT 98
[2024-06-17 12:52] LABS: HBS Num1 29.92 mIU/mL (0-7.99); HBsAGNum1 0.46 S/CO (0.00-0.99); HIV AB/AG Nonreactive (Nonreactive); HIV Num 1 0.05 S/CO (0.00-0.99); Hepatitis B Surface Antigen Negative (Negative); ~HepC Num1 0.13 S/CO (0.00-0.79); ~Hepatitis B Surface Antibody REACTIVE (Nonreactive); ~Hepatitis C Antibody Nonreactive (Nonreactive)
[2024-06-17 12:53] LABS: Syphilis Screen Nonreactive (Nonreactive)
[2024-06-17 13:27] LABS: CT PCR NOT DETECTED (Not Detect.); NG PCR NOT DETECTED (Not Detect.)
== END 2024-06-17 12:36 | disposition home or self-care (01) ==
PROVIDERS: Physician Assistant; Emergency Provider Emergency Medicine; PCP Family Medicine
CPT/HCPCS: 0352U; 36415; 80048; 80076; 81001; 81025; 81513; 83735; 85025; 86706; 86780; 86803; 87086; 87147; 87340; 87389; 87491; 87591; 96372; 99283; 99284; J0696; J2003

== ENCOUNTER 2024-07-22 09:55 | Outpatient (REF) | payer MEDICAID, SELFPAY ==
[2024-07-22 11:48] LABS: MANUAL DIFF FLAG NO
[2024-07-22 12:04] LABS: Basophils Absolute Auto 0.1 X10*3/uL (0.0-0.2); Eosinophils Absolute Auto 0.3 X10*3/uL (0.0-0.4); Eosinophils Percent Auto 3.3 % (0-4); Hematocrit 36.3 % (37.0-47.0); Hemoglobin 11.8 g/dl (12.0-16.0); Imm Gran Abs Auto 0.02 X10*3/uL (0.00-0.03); Imm Gran Pct Auto 0.2 % (0.0-0.4); Lymphocytes Absolute Auto 2.4 X10*3/uL (1.2-4.9); Lymphocytes Percent Auto 27.3 % (20-40); Mean Corpuscular HGB Conc 32.5 g/dl (31.0-35.0); Mean Corpuscular Hemoglobin 26.5 pg (27.0-33.0); Mean Corpuscular Volume 81.4 fL (80.0-98.0); Mean Platelet Volume 9.9 fL (9.4-12.3); Monocytes Absolute Auto 0.6 X10*3/uL (0.1-1.2); Monocytes Percent Auto 6.3 % (2-11); Neutrophils Absolute Auto 5.4 x10*3/uL (2.0-8.3); Neutrophils Percent Auto 61.9 % (45-73); Platelet Count 331 X10*3/uL (160-400); Red Blood Count 4.46 X10*6/uL (4.20-5.50); Red Cell Distribution Width 13.2 % (11.0-16.0); White Blood Count 8.8 X10*3/uL (4.8-10.8)
[2024-07-22 12:31] LABS: Alanine Aminotransferase 15 U/L (0-31); Alkaline Phosphatase 65 U/L (39-117); Anion Gap 11 (12-20); Aspartate Amino Transferase 22 U/L (5-31); Bilirubin Direct 0.1 mg/dL (0.0-0.5); Bilirubin Total 0.3 mg/dL (0.0-1.0); Blood Urea Nitrogen 11 mg/dL (9-16); Calcium 9.1 mg/dL (8.4-10.2); Carbon Dioxide 25 mmol/L (22-29); Chloride 103 mmol/L (96-108); Cholesterol 146 mg/dL (<200); Estimated Glomerular Filt Rate > 60; Glucose Random 89 mg/dL (60-115); HDL Cholesterol 47 mg/dL (>40); Iron 53 mcg/dL (30-160); LDL Cholesterol Calculated 82 mg/dL (<100); Percent Iron Saturation 16 % (15-50); Potassium 3.4 mmol/L (3.3-5.1); Sodium 136 mmol/L (135-145); Total Iron Binding Capacity 324 mcg/dL (228-428); Total Protein 7.4 g/dL (6.5-8.0); Triglycerides 85 mg/dL (<150); Unsaturated Iron Binding 271 ug/dL
[2024-07-22 12:32] LABS: Estimated Average Glucose 131 mg/dL; Hemoglobin A1C 132.9527 umol/L; Hemoglobin A1c % 6.2 % (<6.0); Total Hemoglobin (HGBA1C) 3020.5532 umol/L
[2024-07-22 12:38] LABS: Hepatitis A Antibody IgG Nonreactive (Nonreactive); ~Hepatitis A Antibody IgG 0.43 S/CO (0.00-0.99)
[2024-07-22 12:40] LABS: Creatinine Urine 309.91 mg/dL; Microalbum/Creatinine Ratio Ur 9.3 ug/mg cr (<30)
[2024-07-22 12:49] LABS: Folate 10.4 ng/mL (> or = 4.0); Vitamin B12 234 pg/mL (200-900)
[2024-07-22 12:50] LABS: Ferritin 35 ng/mL (10-122); Free T4 (Free Thyroxine) 0.78 ng/dL (0.71-1.85); Thyroid Stimulating Hormone 2.12 uIU/mL (0.32-4.0); Vitamin D 25-OH Total 30.8 ng/mL (>30)
[2024-07-22 13:05] LABS: HBc Num1 0.07 S/CO (0.00-0.79); HIV AB/AG Nonreactive (Nonreactive); HIV Num 1 0.05 S/CO (0.00-0.99); Hepatitis B Core Antibody Nonreactive (Nonreactive); Hepatitis B Surface Antigen Negative (Negative); ~HepC Num1 0.13 S/CO (0.00-0.79); ~Hepatitis B Surface Antibody REACTIVE (Nonreactive); ~Hepatitis C Antibody Nonreactive (Nonreactive)
[2024-07-22 16:12] LABS: CT PCR NOT DETECTED (Not Detect.); NG PCR NOT DETECTED (Not Detect.)
[2024-07-25 17:03] LABS: RPR Rapid Plasma Reagin NON-REACTIVE (NON-REACTIVE)
[2024-07-30 12:54] LABS: Alpha Fetoprotein 1.2 ng/mL
== END 2024-07-22 09:56 | disposition home or self-care (01) ==
LOC: HO.HHCL 09:55
PROVIDERS: Visit Provider Family Medicine
DX: Z00.00 Encounter for general adult medical examination without abnormal findings (principal); E11.9 Type 2 diabetes mellitus without complications; I10 Essential (primary) hypertension; F41.9 Anxiety disorder, unspecified; J30.9 Allergic rhinitis, unspecified; R10.13 Epigastric pain; B37.2 Candidiasis of skin and nail; L85.8 Other specified epidermal thickening; Z68.37 Body mass index [BMI] 37.0-37.9, adult; Z23 Encounter for immunization
CPT/HCPCS: 80048; 80061; 80076; 82043; 82105; 82306; 82570; 82607; 82728; 82746; 83036; 83540; 84439; 84443; 85025; 86592; 86704; 86706; 86708; 86803; 87340; 87389; 87491; 87591

== ENCOUNTER 2024-09-25 17:44 | Outpatient (REF) | payer MEDICAID, SELFPAY ==
--- OUTSIDE RECORDS SUMMARY | 2024-09-25 19:44 | XMS_ITS | Encounter Summary ---
Author Organization [employer] [facility] Address [address] [place] [address] Care Team Providers Care Offset Lithographic Press Operator Name Role Phone Alfonso Figueroa [facility] Primary Care Provider Brittany Sam [facility] Primary Care Provider [phone] Elina Cohen [facility] Primary Care Provider [phone] Zuleika Baltazar MD Primary Care Provide r Lindsey Gramajo DO Primary Care Provider [phone] Encounter Details Date Type Department Care Team (Late Contact Info) Description 09/14/2022 Abstract [facility] [address] [place], [place] [phone] Provider, MD Cesar Social History Tobacco Use Types Packs/Day Years Used Date Smoking Tobacco: Never Assessed Comments Unknown Sex and Gender Information Value Date Recorded Sex Assigned at Female 06/26/2022 10:15 AM EDT Legal Sex Female 10:15 AM EDT Gender Identity Female 06/26/2022 10:15 AM EDT Sexual Orientation Straight 06/26/2022 10 :15 AM EDT COVID-19 Exposure Response Date Recorded In the last 10 days, have yo u been in contact with someone who was confirmed or suspected to have Coronavirus/COVID-19? No / Unsure 09/15/2022 2:03 PM EST documented as of this encounter Plan of Treatment Upcoming Encounters Date Type Department Care Team (Late Contact Info) Description 10/30/2024 1:45 PM EST Office Visit [facility] [address] [place], [place] [phone] Josephine Lawson, OD [address] [place] [address] documented as of this encounter Visit Diagnoses Not on filedocumented in this encounter Care Teams Offset Lithographic Press Operator Relationship Specialty Start Date End Date Alfonso Figueroa FNP PCP - General 07/18/22 10/25/22 Brittany Almanza FNP PCP - General Family Medicine 10/26/22 03/05/23 Elina Cohen FNP [address] [place] [address] PCP - General Family Medicine 03/06/23 04/28/24 Zuleika Baltazar MD [address] [place] [id number] PCP - General Internal Medicine 04/29/24 05/21/24 Lindsey Gramajo DO [address] [place] [id number] PCP - General Family Medicine 05/22/24 documented as of this encounter
--- OUTSIDE RECORDS SUMMARY | 2024-09-25 19:44 | XMS_ITS | Clinical Summary ---
Author Organization [facility] Address [address] [place] [address] Care Team Providers Care Nurse Technician Name Role Phone Pcp, No Primary Care Provider Unavailabl e Allergies Active Allergy Reactions Criticality Noted Date Comments Doxycycline Hives Medium 10/29/2020 Medications Medication Sig Dispensed Refills Start Date End Date Status melatonin 3 MG Tab tablet Take 3 mg by mouth nightly. Active Social History Tobacco Use Types Packs/Day Years Used Date Smoking Tobacco: Never Smokeless Tobacco: Never Alcohol Use Standard Drinks/Week Comments Never 0 (1 standard drink = 0.6 oz pur e alcohol) AUDIT-C Answer Date Recorded Q1: How often do you have a drink containing alc ohol? Never 10/29/2020 Average Number of Drinks Not on file 021 Frequency of Binge Drinking Not on file 12/2020 Sex and Gender Information Value Date Recorded Sex Assigned at Not on file Gender Identity Not on file Sexual Orientation Not on file Last Filed Vital Signs Vital Sign Reading Time Taken Comments Blood Pressure 129/85 05/19/2021 12:45 PM EDT Pulse 104 05/19/2021 1:00 PM EDT Temperature 36.5 ??C (97.7 ??F) 05/19/2021 11:12 AM E DT Respiratory Rate 13 05/19/2021 1:00 PM EDT Oxygen Saturation 97% 05/19/2021 1:00 PM EDT Inhaled Oxygen Concentration - - Weight 82.3 kg (181 lb 7 oz) 05/19/2021 6:09 AM EDT Height 162.6 cm (5' 4 ) 05/16/2021 11:34 AM EDT Body Mass Index 31.14 05/16/2021 11:34 AM EDT Plan of Treatment Health Maintenance Due Date Last Done Comments Hepatitis C Virus Screening 1989 HIV Screening 2002 DTaP/Tdap/Td Vaccines (1 - Tdap) 2008 Hepatitis B Vaccines (1 of 3 - 19+ 3-dose series) 2008 Pap Smear (Ages 21-65) 2010 Influenza Vaccine 03/27/2024 COVID-19 Vaccine (1 - 2023-2 5 season) 2024 HPV Vaccines Aged Out No longer eligi ble based on patient's age to complete this topic Pneumococcal Vaccine: Pediat jackie (0-5 Years) and At-Risk Patients (6 to 49 Years) Aged Out No longer eligible b ased on patient's age to complete this topic Medical Devices Implanted Type Area Quiller Hand Device Identifier Shelf Expiration Date Model / Serial / Lot Natrelle Inspira Cohesive Breast Implant Implanted:Qty: 1 on 11/05/2020 by Carlos Cerda MD at [facility] Breast Right: Breast [employer] 11/05/2024 [id number] / [id number] / Natrelle Inspira Cohesive Breast Implant Implanted:Qty: 1 on 11/05/2020 by Carlos Cerda MD at [facility] Breast Left: Breast [employer] 05/22/2025 [id number] / [id number] / Urogyn [employer]rog[employer] Care Teams Nurse Technician Relationship Specialty Start Date End Date Pcp, No PCP - General General Medicine 10/22/20
--- OUTSIDE RECORDS SUMMARY | 2024-09-25 19:44 | XMS_ITS | Encounter Summary ---
Author Organization [employer] Address [address] [place] [address] Care Team Providers Care Health And Wellness Director Name Role Phone RulaLindsey alberts Primary Care Provider Encounter Details Date Type Department Care Team (Latest Contact Info) Description 09/25/2024 Travel Social History Tobacco Use Types Packs/Day Years Used Date Smoking Tobacco: Never Smokeless Tobacco: Never Alcohol Use Standard Drinks/Week Comments Yes 0 (1 standard drink = 0.6 oz pur e alcohol) Sometimes Depression Answer Date Recorded Patient Health Questionnaire-9 Score 14 07/08/2024 Patient Health Questionnaire-9 Score 14 07/08/2024 Last PHQ-9: Questionnaire Data Not on file 1 09/07/2023 Housing Stability Answer Date Recorded What is your housing situation today? I have akilah mireles 03/07/[address] you li ve. Do you have problems with any of the following? None of the above 03/07/2024 Food Insecurity Answer Date Recorded Within the past 12 months, y ou worried that your food would run out before you got money to buy more: Never True 03/07/2024 Within the past 12 months,th e food you bought just didn't last and you didn't have enough money to get more: Never True 07/2024 Transportation Answer Date Recorded In the past 12 months, has l ack of transportation kept you from medical appts, meetings, work or from getting things needed for daily living? No 03/07/2024 Utilities Answer Date Recorded In the past 12 months, has t he electric, gas, oil or water company threatened to shut off services in your home? No 03/07/2024 Depression Answer Date Recorded Patient Health Questionnaire-2 Score 4 07/08/2024 Internet Access Answer Date Recorded Internet Access Q1 Yes 04/28/2024 Internet Access Q2 Not on file 04/28/2024 Comments No Sex and Gender Information Value Date Recorded Sex Assigned at Female 06/26/2022 10:15 AM EDT Legal Sex Female 10:15 AM EDT Gender Identity Female 06/26/2022 10:15 AM EDT Sexual Orientation Straight 06/26/2022 10 :15 AM EDT documented as of this encounter Plan of Treatment Upcoming Encounters Date Type Department Care Team (Late st Contact Info) Description 10/30/2024 1:45 PM EST Office Visit [facility] [address] [place], [place] [phone] Josephine Lawson, OD [address] [place] [address] documented as of this encounter Visit Diagnoses Not on filedocumented in this encounter Additional Health Concerns Assessment Noted Time PHQ-9 Depression Total Score: 14 024 3:31 PM EST documented as of this encounter Care Teams Health And Wellness Director Relationship Specialty Start Date End Date Lindsey Gramajo DO [address] [place] [address] PCP - General Family Medicine 05/22/24 documented as of this encounter
--- OUTSIDE RECORDS SUMMARY | 2024-09-25 19:44 | XMS_ITS | Encounter Summary ---
Author Organization [employer] Address [address] [place] [address] Care Team Providers Care Mrp Controller Name Role Phone Lindsey Gramajo DO Primary Care Provider [phone] Reason for Visit * Reason Onset Date Comments Nurse Triage 09/25/2024 Encounter Details Date Type Department Care Team ([facility] st Contact Info) Description 09/25/2024 Telephone [facility] [address] [place] [address] Lindsey Gramajo DO [address] [place], [place] [phone] Nurse Triage Social History Tobacco Use Types Packs/Day Years [...] AM EDT documented as of this encounter Miscellaneous Notes * Telephone Encounter - Hazel Perez RN - 09/25/2024 1:01 PM EST Call returned to Nuria Dwyer to triage below. Reports having red patches that appear after shower on arms and backs. Also having itching. Pt denies any changes to topical lotions, soaps or detergents. Pt also having constant cough when laying down. Pt using daily zyrtec for allergies. Pt endorses having join pain of bilateral elbows. No swelling or redness. Pt reports pain worse first thing in the morning. Pt has been using clotrimazole and lac-hydrin as prescribed at last visit [place] no relief. Pt reports another concern of having mucus after having BM . Pt does have it mixed in with stool. Pt also having a yellow mucus. Pt does endorse cramping. Pt having loose stools. No blood in stools. Pt advised of disposition, agrees to sick on site today with team provider for evaluation. Multiple (2) protocols were used on this call. Disposition for Call: See in Office or Video Visit Today Future Appointments Date Time Provider Department Center 09/25/2024 2:30 PM ALFREDO [facility]iva [facility] 10/30/2024 1:45 PM Josephine Lawson OD [facility] Insurance verified as active per Real Time Eligibility in [employer]. Protocol Used: Rash or Redness - Widespread (Adult) Protocol-Based Disposition: See in Office or Video Visit Today Video visit offer not recorded Positive Triage Question: * Severe itching * All higher-acuity triage questions were negative Protocol Used: Diarrhea (Adult) Protocol-Based Disposition: See in Office or Video Visit Today Video visit offer not recorded Positive Triage Question: * Mucus or pus in stool has been present > 2 days and diarrhea is more than mild * All higher-acuity triage questions were negative Care Advice Discussed: * Reasons To Call Back - You become worse * Telephone Encounter - Anila Nicole - 09/25/2024 11:37 AM EST Symptom: Rash or Redness - Widespread Outcome: Schedule a same-day appointment or talk to a nurse or provider today Reason: Caller denied all higher acuity questions The caller accepted this outcome. documented in this encounter Plan of Treatment Upcoming Encounters Date Type Department Care Team (Late st Contact Info) Description 10/30/2024 1:45 PM EST Office Visit [facility] [address] [place] [address] Josephine Lawson, OD [address] [place] [address] documented as of this encounter Visit Diagnoses Not on filedocumented in this encounter Additional Health Concerns Assessment Noted Time PHQ-9 Depression Total Score: 14 024 3:31 PM EST documented as of this encounter Care Teams Mrp Controller Relationship Specialty Start Date End Date Lindsey Gramajo DO [address] [place] [address] PCP - General Family Medicine 05/22/24 documented as of this encounter
--- OUTSIDE RECORDS SUMMARY | 2024-09-25 19:44 | XMS_ITS | Encounter Summary ---
Author Organization [facility] Address [address] [place] [id number] Care Team Providers Care Sales Operations Name Role Phone Pcp, No Primary Care Provider Unavailabl e Encounter Details Date Type Department Care Team (Late st Contact Info) Description 11/01/2020 Lab Requisition [place] COVID-19 Testing [facility] [address] [place] [address] Carlos Cerda MD [address] [place], [place] [id number] Encounter for laboratory testing for COVID-19 virus Social History Tobacco Use Types Packs/Day Years [...] on file Sexual Orientation Not on file COVID-19 Exposure Response Date Recorded In the last month, have you been in contact with someone who was confirmed or suspected to have Coronavirus / COVID-19? No / Unsure 10/29/2020 9:02 AM EST documented as of this encounter Plan of Treatment Not on file documented as of this encounter Procedures Procedure Name Priority Date/Time Associated Diagnosis Comments COVID-19 RT-PCR ([facility]) Routine 11/01/2020 1:19 PM EST Encounter for laboratory testing for COVID-19 virus [ICD-10-CM] documented in this encounter Results * COVID-19 RT-PCR ([facility]) (11/01/2020 1:19 PM EST) COVID-19 RT-PCR SARS-COV-2 NOT DETECTED Not Detected 11/02/2020 9:00 PM EST [facility] Comment: ADDITIONAL INFORMATION The [employer] COVID-19 RT-PCR Assay is Real-Time Reverse Organ Grinder Polymerase Chain Reaction (land surveying survey worker-PCR) for the in vitro qualitative detection of three SARS-Cov-2 target sequences unique to the coronavirus disease 2019 (COVID-19). This is an Emergency Use Authorization (EUA) in vitro diagnostic (IVD) test that has been modified to include the [employer] automated liquid handler. Its analytical performance characteristics have been determined by the sweeper operator highways and verified by [facility] in a manner consistent with CLIA requirements. This test may be used for clinical purposes and should not be regarded as purely investigational or for research use only. This laboratory is certified under the Clinical Laboratory Improvement Amendments of 1988 (CLIA-88) as qualified to perform high complexity clinical testing. Reference interval for this testing is SARS-CoV-2 Not Detected. Fact sheets for this Emergency Use Authorization assay can be found at the following links: For Healthcare Providers: https://www.fda.gov/media/617311/download For Patients: https://www.fda.gov/media/728892/download TEST INTERPRETATION Data analysis and interpretation is performed using the [employer] COVID-19 Interpretive Software. SARS-CoV-2 Not Detected: negative for SARS-CoV-2, recommend testing for other viruses if clinically indicated. Report results to healthcare provider. Positive SARS-CoV-2: positive for SARS-CoV-2, report results to healthcare provider and public health authorities. SARS-CoV-2 Inconclusive: the test results were inconclusive two consecutive times from separate nucleic acid extractions. Additional testing should be performed if clinically indicated. Failed: testing failed two consecutive times from separate nucleic acid extractions. Additional specimen should be collected and submitted for testing. The cycle threshold (Ct) value for each COVID target is included for positive specimens. As per the [employer] COVID-19 Combo Kit EUA documentation, each COVID target with a Ct value of <=37 is called Detected. Please note: The [employer] COVID-19 RT-PCR Assay is a qualitative test, and as such the Ct value is interpreted as positive or negative but cannot be used to determine how much virus is present in an individual patient specimen. Ct values should not be used to determine a patients viral load, how infectious a person may be, or when a person can be released from isolation or quarantine. For more information please refer to: https://www.cdc.gov/coronavirus/2019-ncov/lab/faqs.html#Mugyqfxpjzth-Iyqxlye-np- Diagn ostic-Tests TEST LIMITATIONS Positive results are indicative of the presence of SARS-CoV-2 RNA; clinical correlation with patient history and other diagnostic information is necessary to determine patient infection status. Positive results do not rule out bacterial infection or co-infection with other viruses. The agent detected may not be the definite cause of disease. Negative results do not exclude SARS-CoV-2 infection and should not be used as the sole basis for patient management decisions. Negative results must be combined with clinical observations, patient history, and epidemiological information. Improper sample collection, transport or storage may impede the ability of the assay to detect target sequences. Inconclusive specimens are not repeated, and recollection and submission of a new sample is recommended. The TaqPath COVID-19 test is for the qualitative detection of nucleic acid from SARS-CoV-2 in upper respiratory specimens (such as nasopharyngeal, oropharyngeal, nasal, and mid-turbinate swabs, and nasopharyngeal aspirate), bronchoalveolar lavage (BAL) and saliva specimens from individuals suspected of COVID-19 by their healthcare provider. The limit of detection for the assay was determined to be 250 viral RNA copies/mL for nasal swabs and 500 viral RNA copies/mL for saliva specimens. Other specimen types may be needed for further validation before testing on this system. For further details refer to the [employer] TaqPath COVID-19 Combo Kit EUA submission (https://www.fda.gov/media/359483/download). ----- Test performed by [facility], [address] [place] [address] CLIA# [id number] ? Bradley Gallo M.D., Ph.D., [facility] [place], Clinical Programming Manager Microbiology Nasopharyngeal swab / Unknown 11/01/2020 1:19 PM EST 11/01/2020 1:19 PM EST Narrative [facility] - 11/02/2020 9:00 PM EST Performed at [facility], [address] [place] [address], [place], [place], [place] Lic 0695, CLIA [id number] Carlos Cerda MD MICROBIOLOGY - GENER AL ORDERABLES [facility] [address] [place] [address] documented in this encounter Visit Diagnoses Diagnosis Encounter for laboratory testing for COVID-19 virus documented in this encounter Care Teams Sales Operations Relationship Specialty Start Date End Date Pcp, No PCP - General General Medicine 10/22/20 documented as of this encounter
--- OUTSIDE RECORDS SUMMARY | 2024-09-25 19:44 | XMS_ITS | Encounter Summary ---
Author Organization [facility] Address [address] [place] [address] [address] [place] [address] Care Team Providers Care Spool Sander Name Role Phone Lindsey Gramajo DO Primary Care Provider [phone] Reason for Referral * Consultation (Routine) - Pending Review Specialty Diagnoses / Procedures Referred By Lydia espinoza Referred To Contact Gastroenterology Diagnoses Mucus in stool Summer Aguilar ANP [address] [place] [address] Phone: tel: fax: Referral ID Status Reason Start Date Expiration Date Visits Requested Visits Authorized [id number] Pending Review Specialty Services Required 09/25/2024 09/25/2025 1 1 * Consultation (Routine) - Pending Review Specialty Diagnoses / Procedures Referred By Lydia espinoza Referred To Contact Allergy Diagnoses Non-seasonal allergic rhinitis, unspecified trigger Summer Aguilar ANP [address] [place] [address] Phone: tel: fax: Referral ID Status Reason Start Date Expiration Date Visits Requested Visits Authorized [id number] Pending Review Specialty Services Required 09/25/2024 09/25/2025 1 1 Reason for Visit * Reason Comments sick on site Encounter Details Date Type Department Care Team ([facility] st Contact Info) Description 09/25/2024 2:30 PM EST Office Visit [facility] MEDICINE [address] [place] [address] Summer Aguilar ANP [address] [place] [address] Subacute cough (Primary Dx); SOB (shortness of breath); Mucus in stool; Generalized pruritus; Vaginal discharge; Essential hypertension; Non-seasonal allergic rhinitis, unspecified trigger; Family history of Crohn's disease Social History Tobacco Use Types Packs/Day Years [...] AM EDT documented as of this encounter Last Filed Vital Signs Vital Sign Reading Time Taken Comments Blood Pressure 146/100 09/25/2024 3:27 PM EST Pulse 85 09/25/2024 3:08 PM EST Temperature 36.7 ??C (98 ??F) 09/25/2024 3:08 PM EST Respiratory Rate 14 09/25/2024 3:08 PM EST Oxygen Saturation 98% 09/25/2024 3:08 PM EST Inhaled Oxygen Concentration - - Weight 97.2 kg (214 lb 3.2 oz) 09/25/2024 3:08 P M EST Height - - Body Mass Index 36.77 07/08/2024 10:29 AM EST documented in this encounter Patient Instructions * Patient Instructions* ALFREDO Oliva - 09/25/2024 2:30 PM EST Images from the original note were not included. For your skin: Please use AmLactin just on your upper arms. Please use a hypoallergenic lotion likeVaseline intensive care, CeraVe or Wyman butter or something similar without fragrance to the rest of your body. For your allergies: Take cetirizine once daily and use the nasal spray as well daily as needed. Will refer to reverberatory furnace operator. For your cough: Take famotidine 20 mg at bedtime. If you are getting acid reflux symptoms during the day, please take famotidine in the morning before breakfast as well. Take albuterol before bedtime(2 puffs by at least 1 minute between them) for the next few days and then use as needed for wheezing, shortness of breath. For vaginal symptoms: We will send out testing for yeast infection and bacterial vaginosis and treat based on these results. For GI: I will re-send the referral to gastroenterology. Please decrease your soda intake and increase intake of water, fresh fruits and vegetables, high fiber foods. For your blood pressure: Please resume hydrochlorothiazide once daily. Increased exercise and a low-salt diet will also help your blood pressure. Please record your home blood pressures on the log below. The ideal blood pressure would be < 130/80 ( normal is < 120/80). For your blood pressure, it is recommended to eat a low salt diet, get regular exercise, check your blood pressure at home, and take medications as prescribed. If you smoke, please decrease or quit. Call clinic if blood pressure is frequently >150/90. Go to ED/call 911 if > 170/100 and having symptoms that could include headache, visual changes, chest pain, altered mental status or shortness of breath. documented in this encounter Progress Notes * ALFREDO Oliva - 09/25/2024 2:30 PM EST Subjective Patient ID: Nuria Dwyer is a 33 y.o. female who presents for sick on site. HPI PMH incl T2DM w/ HTN, PCOS, fatty liver, anxiety H/o gastric sleeve 2019 Non-smoker Will need referral to GI - Was referred to GI 06/2024 but there was an insurance issue so referral was cancelled. Is having mucous in stool. Constipation and loose stool and abdominal cramping. Daughter has crohn's. Having itchy skin and redness in response to showers, all over. Using amlactin over whole body w/o effect. Recommend to limit amlactin to upper arms and use hypoallergenic lotion for rest of body. Having cough at night, is having a lot of heart burn. Has appt w/ bariatrics next week for follow-up s/p sleeve gastrectomy. Not taking famotidine that was rx'd. Reports vaginal itching and discharge recently. Thinks BG has been high, drinking lots of soda. Notchecking BG. Asked her to please do so b/f PCP appt. Not taking hydrochlorothiazide b/c BP was good. Will resume. Denies MILAN, vision changes, dizziness, chest pain. Review of Systems Constitutional: Negative for chills and fever. HENT: Positive for congestion and postnasal drip. Negative for sore throat. Respiratory: Positive for cough. Negative for apnea, choking, chest tightness and shortness of breath. Cardiovascular: Negative for chest pain. Gastrointestinal: Positive for abdominal pain and constipation. Negative for blood in stool and diarrhea. Endocrine: Negative for polydipsia, polyphagia and polyuria. Genitourinary: Positive for vaginal discharge. Negative for dysuria, hematuria and pelvic pain. Musculoskeletal: Negative for back pain. Objective BP (!) 146/100 (BP Location: Left arm, Patient Position: Sitting, BP Cuff Size: Large adult) Pulse 85 Temp 98 ??F (36.7 ??C) (Temporal) Resp 14 Wt 214 lb 3.2 oz (97.2 kg) SpO2 98% BMI 36.77 kg/m?? Physical Exam Vitals reviewed. Constitutional: General: She is not in acute distress. Appearance: Normal appearance. She is obese. She is not ill-appearing. HENT: Head: Normocephalic and atraumatic. Nose: Congestion present. Eyes: General: No scleral icterus. Extraocular Movements: Extraocular movements intact. Pupils: Pupils are equal, round, and reactive to light. Cardiovascular: Rate and Rhythm: Normal rate and regular rhythm. Pulmonary: Effort: Pulmonary effort is normal. No accessory muscle usage or respiratory distress. Breath sounds: Normal breath sounds. No wheezing. Musculoskeletal: Right lower leg: No edema. Left lower leg: No edema. Neurological: Mental Status: She is alert and oriented to person, place, and time. Cranial Nerves: No cranial nerve deficit. Gait: Gait normal. Psychiatric: Mood and Affect: Mood normal. Behavior: Behavior normal. Assessment/Plan For your skin: Please use AmLactin just on your upper arms. Please use a hypoallergenic lotion likeVaseline intensive care, CeraVe or Wyman butter or something similar without fragrance to the rest of your body. For your allergies: Take cetirizine once daily and use the nasal spray as well daily as needed. Will refer to reverberatory furnace operator. For your cough: Take famotidine 20 mg at bedtime. If you are getting acid reflux symptoms during the day, please take famotidine in the morning before breakfast as well. Take albuterol before bedtime(2 puffs by at least 1 minute between them) for the next few days and then use as needed for wheezing, shortness of breath. For vaginal symptoms: We will send out testing for yeast infection and bacterial vaginosis and treat based on these results. For GI: I will re-send the referral to gastroenterology. Please decrease your soda intake and increase intake of water, fresh fruits and vegetables, high fiber foods. For your blood pressure: Please resume hydrochlorothiazide once daily. Increased exercise and a low-salt diet will also help your blood pressure. Please record your home blood pressures on the log below. Diagnoses and all orders for this visit: Subacute cough - albuterol 108 (90 Base) MCG/ACT inhaler; Inhale 2 puffs every 6 (six) hours if needed for wheezing. SOB (shortness of breath) Mucus in stool Generalized pruritus Vaginal discharge - Bacterial Vaginosis Panel Essential hypertension Non-seasonal allergic rhinitis, unspecified trigger documented in this encounter Plan of Treatment Upcoming Encounters Date Type Department Care Team (Late st Contact Info) Description 10/30/2024 1:45 PM EST Office Visit [facility] OPTOMETRY [address] [place], [place] [phone] Josephine Lawson, OD [address], [place] [phone] Scheduled Orders Name Type Priority Associated Diagnoses Orde r Schedule Bacterial Vaginosis Panel Microbiology Routine Vaginal discharge Ordered: 09/25/2024 Scheduled Referrals Name Type Priority Associated Diagnoses Order Schedule Referral to Allergy Outpatient Referral Routine Non-seasonal allergic rhinitis, unspecified trigger Expected: 09/25/2024 (Approximate), Expires: 09/25/2025 Referral to Gastroenterology Outpatient Referral Routine Mucus in stool Expected: 09/25/2024 (Approximate), Expires: 09/25/2025 documented as of this encounter Visit Diagnoses Diagnosis Subacute cough- Primary SOB (shortness of breath) Shortness of breath Mucus in stool Nonspecific abnormal finding in stool contents Generalized pruritus Unspecified pruritic disorder Vaginal discharge Leukorrhea, not specified as infective Essential hypertension Unspecified essential hypertension Non-seasonal allergic rhinitis, unspecified trigger Family history of Crohn's disease Family history of other digestive disorders documented in this encounter Additional Health Concerns Assessment Noted Time PHQ-9 Depression Total Score: 14 07/08/2 024 3:31 PM EST documented as of this encounter Care Teams Spool Sander Relationship Specialty Start Date End Date Lindsey Gramajo DO [address] [place] [id number] PCP - General Family Medicine 05/22/24 documented as of this encounter
--- OUTSIDE RECORDS SUMMARY | 2024-09-25 19:44 | XMS_ITS | Clinical Summary ---
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 Blood Pressure Monitor kitIndications:El evated BP without diagnosis of hypertension 1 Units Once per day. 1 kit 4 Active DULoxetine (Cymbalta) [address] capsule Take 1 capsule (20 mg) by mouth Once per day. Do not crush or chew. 30 capsule 1 4 04/01/20 25 Active hydroCHLOROthiazi de (HYDRODiuril) 25 MG tablet Take 1 tablet (25 mg) by mouth Once per day. 90 tablet 4 Active cetirizine (ZyrTEC) 10 MG tabletIndications :Acute cough Take 1 tablet (10 mg) by mouth Once per day. 90 tablet 3 4 06/17/20 25 Active QUEtiapine (SEROquel) 25 MG tablet TAKE 1 TABLET EVERY NIGHT FOR SLEEP/MOOD 4 Active Dulaglutide (Trulicity) 0.75 MG/0.5ML solution auto-injector Inject 0.5 mL (0.75 mg) under the skin 1 (one) time per week. 2 mL 3 4 Active famotidine (Pepcid) 20 MG tablet Take 1 tablet (20 mg) by mouth if needed in the morning and at bedtime for heartburn. 60 tablet 3 4 07/08/20 Active triamcinolone (Nasacort) 55 MCG/ACT nasal inhaler Administer 2 sprays into each nostril Once per day. 16.5 g 4 07/08/20 Active ammonium lactate (Lac-Hydrin) 12 % lotion Apply topically if needed (dry skin on arms). 396 g 3 4 07/08/20 25 Active FREESTYLE LITE test strip Use to test blood sugar 2 times daily 100 each 4 07/08/20 25 Active Lancets misc Use to test blood sugar 2 times daily 100 each 4 Active Alcohol Swabs 70 % pads Use to test blood sugar 2 times daily 100 each 4 Active Blood Glucose Monitoring Suppl (FreeStyle Laurel Lite) w/Device kit Use to test blood sugar 2 times daily 1 kit 4 Active albuterol 108 (90 Base) MCG/ACT inhalerIndication s:Subacute cough Inhale 2 puffs every 6 (six) hours if needed for wheezing. 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 Overview (01/08/2024): During [facility] Consult Nuria presenting with depressed mood, loss of interests/pleasure , changes in sleep difficulty staying asleep , change in appetite or weight reduce appetite, psychomotor retardation, trouble concentrating, thoughts of worthlessness or guilt, fatigue/loss of energy, inappropriate guilt , hopelessness, worthlessness , difficulty concentrating and excessive worry/anxiety, difficulty controlling worry, restless/keyed up/On edge, easily fatigued, irritability, and sleep disturbance difficulty staying asleep intense pain over the loss of her brother, avoidance of reminder of her loss, bitterness, inability to enjoy life; for a period of 24+mo, for all symptoms in the context of . Intense state of mourning keeps Nuria from healing and enjoying life. She was very closed to her brother Gasper who three years ago. Not currently taking Cymbalta due to severe side effects. Anxiety sxs increase with triggers and reminders of her loss. Able to self-manage sxs, however, sxs are worsening causing distress. PLAN: (check all that apply) New/Additional Services needed On-site non-integrated services Off-site services for Behavioral Health Integration Plan External OP therapy referral Patient Self Plan Patient to utilize skills provided in intervention , Patient to reach out to [facility] team as needed, Patient to engage in OP therapy , and Patient to reach out to [facility] as needed Anxiety 01/08/2024 Overview (01/08/2024): During IBH Consult Nuria presenting with depressed mood, loss of interests/pleasure , changes in sleep difficulty staying asleep , change in appetite or weight reduce appetite, psychomotor retardation, trouble concentrating, thoughts of worthlessness or guilt, fatigue/loss of energy, inappropriate guilt , hopelessness, worthlessness , difficulty concentrating and excessive worry/anxiety, difficulty controlling worry, restless/keyed up/On edge, easily fatigued, irritability, and sleep disturbance difficulty staying asleep intense pain over the loss of her brother, avoidance of reminder of her loss, bitterness, inability to enjoy life; for a period of 24+mo, for all symptoms in the context of . Intense state of mourning keeps Nuria from healing and enjoying life. She was very closed to her brother Gasper who three years ago. Not currently taking Cymbalta due to severe side effects. Anxiety sxs increase with triggers and reminders of her loss. Able to self-manage sxs, however, sxs are worsening causing distress. PLAN: (check all that apply) New/Additional Services needed On-site non-integrated services Off-site services for Behavioral Health Integration Plan External OP therapy referral Patient Self Plan Patient to utilize skills provided in intervention , Patient to reach out to [facility] team as needed, Patient to engage in OP BH therapy , and Patient to reach out to [facility] as needed History of anemia 01/03/2024 H/O gastric sleeve 09/15/2022 Overview (09/15/2022): 2019 Fatty liver 06/30/2021 Essential hypertension 11/21/2018 Assessment & Plan (06/05/2023 10:46 AM EDT): Varun elevated, patient reports is always good at home I advise to monitor and f/u with PCP Vitamin D deficiency 11/21/2018 Cobalamin deficiency 09/20/2017 Polycystic ovarian syndrome 09/17/2015 Resolved Problems Problem Noted Date Diagnosed Date Resolved Date Dizziness 03/18/2024 07/08/2024 Assessment & Plan (03/18/2024 3:30 PM EDT): Pt reports on and off episodes of dizziness and nausea w no other symptoms , here normal examination -preg test urine is negative -advised hydration and change slowly position from laying to standing -ordered today TSH,CBC,chem, blood preg test, STI test request by pt -alarm signs and symptoms discussed -decreased for now lisinopril to 5 mg daily from 10 mg a day -bring home BP readings at next apt to her PCP Acute cough 03/18/2024 07/08/2024 Assessment & Plan (03/18/2024 10:00 PM EDT): -suspicion for URI or seasonal allergies -no testing in clinic today given Rapid COVID-19, Influenza negative results yesterday -advised increase fluid intake and rest -Sore throat: salt water gargles, drink tea with honey & lemon, suck lozenge -come to walk-in center if develop fever or symptoms worsen -trial flonase and zyrtec to assist with symptoms. Prescription sent to pharmacy -return to clinic if symptoms worsen or fail to improve Bacterial vaginosis 01/17/2024 07/08/20 Assessment & Plan (01/17/2024 10:07 AM EDT): -Whiff test positive - Start Metronidazole 0.75% vaginal gel Vaginal candidiasis 01/17/2024 07/08/20 Assessment & Plan (01/17/2024 10:03 AM EDT): -Wet prep with SADIQ significant for hyphae and budding yeast. -Candidiasis prevention discussed. -Start Fluconazole 150 mg tablet Macromastia 01/03/2024 07/08/2024 Hypertension 01/03/2024 07/08/2024 Class 1 obesity 01/03/2024 07/08/2024 Chest tightness 12/26/2023 07/08/2024 Assessment & Plan (12/26/2023 3:45 PM EDT): Given new onset chest tightness with sob in setting of elevated blood pressure, extreme stressors and abnormal EKG suggesting possible ischemia (report of EKG from [facility] 11/29/23 normal) and exam with tachycardia and clear lung exam, recommend ER. Pt refuses ambulance but agrees to go to ER now. Tinea cruris 06/05/2023 07/08/2024 Vaginal discharge 06/05/2023 07/08/2024 Missed period 06/05/2023 07/08/2024 Positive test 09/20/2022 06/0 12/2022 Overview (09/20/2022): LMP 08/19/22 DIOR 05/26/2023 Chapped skin 09/20/2017 07/08/2024 Iron deficiency anemia 07/27/201707/08 Obesity 09/17/2015 07/08/2024 Encounters Date Type Department Care Team Description 09/25/2024 2:30 PM EST Office Visit [address] [address] Summer Aguilar ANP Subacute cough (Primary Dx); SOB (shortness of breath); Mucus in stool; Generalized pruritus; Vaginal discharge; Essential hypertension; Non-seasonal allergic rhinitis, unspecified trigger; Family history of Crohn's disease 09/25/2024 Travel 09/25/[address] [phone] Lindsey Gramajo DO Nurse Triage 07/28/[address] [address] Radha Fernandez RN 07/25/[address] [address] Cintia Payne MD 07/23/[address] [address] Lindsey Gramajo DO 07/23/[address] [address] Lindsey Gramajo DO Med Refill 07/21/[address] [phone] Lindsey Gramajo DO Nurse Triage 07/08/2024 10:45 AM EST Office Visit [address] [address] Lindsey Gramajo DO Routine history and physical examination of adult (Primary Dx); New onset type 2 diabetes mellitus (CMS/HCC); Essential hypertension; Anxiety; Chronic allergic rhinitis; Epigastric pain; Candidal intertrigo; Keratosis pilaris; BMI 37.0-37.9, adult; Encounter for immunization 07/08/2024 Travel 06/30/2024 Patient Outreach [address] [phone] Lindsey Gramajo DO Pre-visit Planning (SDOH screening completed on 03/07/2024) from Last 3 Months Immunizations Name Administration Dates Next Due DTaP 12/07/1994, 1,11/13/1990,03/15,01/10/1990 HPV, Quadrivalent 11/04/2009 Hep B, Adolescent or Pediatric 10/12/1998,1997,04/09/1998 Hib (HbOC) 01/28/1991 IPV 12/07/1994, 1,03/15/1990,01/10 Influenza injectable quadriv alent IIV4 with preservative 07/26/2017 Influenza injectable quadriv alent preservative free 05/29/2023,09/21/2016 Influenza, seasonal, injecta ble, preservative free 07/08/2024 MMR 01/09/1994,11/13/1990 Pneumococcal Polysaccharide PPSV23 04/15/2019 TD (adult), 2 Lf tetanus tox oid, preservative free, adsorbed 05/16/2002 Tdap 07/08/2024,11/04/2009 Varicella 04/13/2015 Family History Medical History Relation Name Comments Autoimmune disease Daughter autoimmun e pancreatis, ulcerative colitis Celiac disease Daughter No Known Problems Father Hypertension Maternal Grandmother Diabetes Mother Hyperlipidemia Mother Hypertension Mother Diabetes Mother's Brother Breast cancer Paternal Grandmother Relation Name Status Comments Daughter Father Maternal Grandmother Mother Mother's Brother Paternal Grandmother Social History Tobacco Use Types Packs/Day Years Used Date Smoking Tobacco: Never Smokeless Tobacco: Never Tobacco Cessation:Counseling Given: Not Answered Alcohol Use Standard Drinks/Week Comments Yes 0 [...] Orientation Straight 06/26/2022 10 :15 AM EDT Last Filed Vital Signs Vital Sign Reading [...] oz) 09/25/2024 3:08 P M EST Height 162.6 cm (5' 4 ) 07/08/2024 10:29 AM EST Body Mass Index 36.77 07/08/2024 10:29 AM EST Plan of Treatment Upcoming Encounters Date Type Department Care Team (Late st Contact Info) Description 10/30/2024 1:45 PM EST Office Visit [facility] [address] [place] [address] Josephine Lawson, OD [address] [place] [address] Health Maintenance Due Date Last Done Comments Diabetes: Foot Exam 11/08/1999 Eye Exam 11/08/1999 Family Planning (PISQ) 2004 Hepatitis A Vaccines (1 of 2 - Risk 2-dose series) 2008 HPV Vaccines (2 - 3-dose series) 12/02/2009 11/04/2009 Pap Smear 2010 Cervical Cancer Screening 11/08/2019 HPV/Cotest 11/08/2019 Pneumococcal Vaccine: Pediatrics (0 to 5 Years) and At-Risk Patients (6 to 49) Years) (2 of 2 - PCV) 04/15/2020 04/15/2019 COVID-19 Vaccine ( - season) 2024 10/20/2020, 09/22/2020 Depression Monitoring (PHQ-9) 01/05/2025 07/08/2024, 07/08/2024 Diabetes: Hemoglobin A1C 01/19/2025 024, 03/18/2024, 06/29/2023, Additional history exists Alcohol/Substance Use Screening 03/07/2025 03/07/2024 SDOH Screening 03/07/2025 03/07/2024 Depression Screening 07/08/2025 07/08/2024, 07/08/20 24 Diabetes: Urine Protein Screening 07/22/2025 07/22/2024 Lipid Panel 07/22/2025 07/22/2024, 04/0 02/2022, 04/27/2021, Additional history exists Tobacco Screening 09/25/2025 09/25/2024 DTaP/Tdap/Td Vaccines (7 - Td or Tdap) 07/08/2034 07/08/2024, 11/04/2009, 05/16/2002, Additional history exists Zoster Vaccines (1 of 2) 11/08/2039 RSV Patients and Patients Aged 60 years or older (1 - 1-dose 75+ series) 2064 HIB Vaccines Aged Out 01/28/1991 No longer eligi ble based on patient's age to complete this topic IPV Vaccines Completed 12/07/1994, 01/25, 03/15/1990, Additional history exists Hepatitis B Vaccines Completed 10/12/1998, 06/29/1998, 04/09/1998 Influenza Vaccine Completed 07/08/2024, , 07/26/2017, Additional history exists HIV Screening Completed 07/22/2024, 02/25, 01/17/2024, Additional history exists Hepatitis C Screening Completed 07/22/2024 , 03/18/2024, 01/17/2024, Additional history exists Meningococcal Vaccine Aged Out No eunice ruby eligible based on patient's age to complete this topic RSV under 20 months Aged Out No longe r eligible based on patient's age to complete this topic Rotavirus Vaccines Aged Out No longer eligible based on patient's age to complete this topic Procedures Procedure Name Priority Date/Time Associated Diagnosis Comments CBC WITH AUTO DIFFERENTIAL Routine 07/22/2024 10:05 AM EST Routine history and physical examination of adult New onset type 2 diabetes mellitus (CMS/HCC) Essential hypertension Anxiety Chronic allergic rhinitis Epigastric pain Candidal intertrigo Keratosis pilaris BMI 37.0-37.9, adult Encounter for immunization HEPATITIS B CORE AB TOTAL Routine 07/22/2024 10:05 AM EST Routine history and physical examination of adult New onset type 2 diabetes mellitus (CMS/HCC) Essential hypertension Anxiety Chronic allergic rhinitis Epigastric pain Candidal intertrigo Keratosis pilaris BMI 37.0-37.9, adult Encounter for immunization HEPATITIS A ANTIBODY, TOTAL Routine 07/22/2024 10:05 AM EST Routine history and physical examination of adult New onset type 2 diabetes mellitus (CMS/HCC) Essential hypertension Anxiety Chronic allergic rhinitis Epigastric pain Candidal intertrigo Keratosis pilaris BMI 37.0-37.9, adult Encounter for immunization ALPHA FETOPROTEIN, TUMOR MARKER Routine 07/22/2024 10:05 AM EST Routine history and physical examination of adult New onset type 2 diabetes mellitus (CMS/HCC) Essential hypertension Anxiety Chronic allergic rhinitis Epigastric pain Candidal intertrigo Keratosis pilaris BMI 37.0-37.9, adult Encounter for immunization IRON AND TOTAL IRON BINDING CAPACITY Routine 07/22/2024 10:05 AM EST Routine history and physical examination of adult New onset type 2 diabetes mellitus (CMS/HCC) Essential hypertension Anxiety Chronic allergic rhinitis Epigastric pain Candidal intertrigo Keratosis pilaris BMI 37.0-37.9, adult Encounter for immunization FERRITIN Routine 07/22/2024 10:05 AM EST Routine history and physical examination of adult New onset type 2 diabetes mellitus (CMS/HCC) Essential hypertension Anxiety Chronic allergic rhinitis Epigastric pain Candidal intertrigo Keratosis pilaris BMI 37.0-37.9, adult Encounter for immunization VITAMIN B12/FOLATE, SERUM PANEL Routine 07/22/2024 10:05 AM EST Routine history and physical examination of adult New onset type 2 diabetes mellitus (CMS/HCC) Essential hypertension Anxiety Chronic allergic rhinitis Epigastric pain Candidal intertrigo Keratosis pilaris BMI 37.0-37.9, adult Encounter for immunization HEPATITIS B SURFACE ANTIBODY, QUALITATIVE Routine 07/22/2024 10:05 AM EST Routine history and physical examination of adult New onset type 2 diabetes mellitus (CMS/HCC) Essential hypertension Anxiety Chronic allergic rhinitis Epigastric pain Candidal intertrigo Keratosis pilaris BMI 37.0-37.9, adult Encounter for immunization RPR (MONITOR) W/REFL TITER Routine 07/22/2024 10:05 AM EST Routine history and physical examination of adult New onset type 2 diabetes mellitus (CMS/HCC) Essential hypertension Anxiety Chronic allergic rhinitis Epigastric pain Candidal intertrigo Keratosis pilaris BMI 37.0-37.9, adult Encounter for immunization HEPATITIS C AB W/REFL TO HCV RNA, QN, PCR Routine 07/22/2024 10:05 AM EST Routine history and physical examination of adult New onset type 2 diabetes mellitus (CMS/HCC) Essential hypertension Anxiety Chronic allergic rhinitis Epigastric pain Candidal intertrigo Keratosis pilaris BMI 37.0-37.9, adult Encounter for immunization HIV 1/2 ANTIGEN/ANTIBODY, FOURTH GENERATION W/RFL Routine 07/22/2024 10:05 AM EST Routine history and physical examination of adult New onset type 2 diabetes mellitus (CMS/HCC) Essential hypertension Anxiety Chronic allergic rhinitis Epigastric pain Candidal intertrigo Keratosis pilaris BMI 37.0-37.9, adult Encounter for immunization HEPATITIS B SURFACE ANTIGEN, EIA Routine 07/22/2024 10:05 AM EST Routine history and physical examination of adult New onset type 2 diabetes mellitus (CMS/HCC) Essential hypertension Anxiety Chronic allergic rhinitis Epigastric pain Candidal intertrigo Keratosis pilaris BMI 37.0-37.9, adult Encounter for immunization ALBUMIN, RANDOM URINE W/CREATININE Routine 07/22/2024 10:05 AM EST Routine history and physical examination of adult New onset type 2 diabetes mellitus (CMS/HCC) Essential hypertension Anxiety Chronic allergic rhinitis Epigastric pain Candidal intertrigo Keratosis pilaris BMI 37.0-37.9, adult Encounter for immunization BASIC METABOLIC PANEL Routine 07/22/2024 10:05 AM EST Routine history and physical examination of adult New onset type 2 diabetes mellitus (CMS/HCC) Essential hypertension Anxiety Chronic allergic rhinitis Epigastric pain Candidal intertrigo Keratosis pilaris BMI 37.0-37.9, adult Encounter for immunization HEMOGLOBIN A1C Routine 07/22/2024 10:05 AM EST Routine history and physical examination of adult New onset type 2 diabetes mellitus (CMS/HCC) Essential hypertension Anxiety Chronic allergic rhinitis Epigastric pain Candidal intertrigo Keratosis pilaris BMI 37.0-37.9, adult Encounter for immunization HEPATIC FUNCTION PANEL Routine 07/22/2024 10:05 AM EST Routine history and physical examination of adult New onset type 2 diabetes mellitus (CMS/HCC) Essential hypertension Anxiety Chronic allergic rhinitis Epigastric pain Candidal intertrigo Keratosis pilaris BMI 37.0-37.9, adult Encounter for immunization TSH Routine 07/22/2024 10:05 AM EST Routine history and physical examination of adult New onset type 2 diabetes mellitus (CMS/HCC) Essential hypertension Anxiety Chronic allergic rhinitis Epigastric pain Candidal intertrigo Keratosis pilaris BMI 37.0-37.9, adult Encounter for immunization LIPID PANEL, STANDARD Routine 07/22/2024 10:05 AM EST Routine history and physical examination of adult New onset type 2 diabetes mellitus (CMS/HCC) Essential hypertension Anxiety Chronic allergic rhinitis Epigastric pain Candidal intertrigo Keratosis pilaris BMI 37.0-37.9, adult Encounter for immunization VITAMIN D,25-OH,TOTAL,IA Routine 07/22/2024 10:05 AM EST Routine history and physical examination of adult New onset type 2 diabetes mellitus (CMS/HCC) Essential hypertension Anxiety Chronic allergic rhinitis Epigastric pain Candidal intertrigo Keratosis pilaris BMI 37.0-37.9, adult Encounter for immunization T4, FREE Routine 07/22/2024 10:05 AM EST Routine history and physical examination of adult New onset type 2 diabetes mellitus (CMS/HCC) Essential hypertension Anxiety Chronic allergic rhinitis Epigastric pain Candidal intertrigo Keratosis pilaris BMI 37.0-37.9, adult Encounter for immunization CHLAMYDIA/N. GONORRHOEAE RNA, TMA, UROGENITAL Routine 07/22/2024 10:05 AM EST Routine history and physical examination of adult New onset type 2 diabetes mellitus (CMS/HCC) Essential hypertension Anxiety Chronic allergic rhinitis Epigastric pain Candidal intertrigo Keratosis pilaris BMI 37.0-37.9, adult Encounter for immunization from Last 3 Months Results * Vitamin D, 25-Hydroxy, Total, Immunoassay (07/22/2024 10:05 AM EST) Vitamin D 25-OH Total 30.8 >30 ng/mL [facility] Comment:Health Based Referen ce Values*< 20 ng/mL [id number] ng/mL Insufficient> 30 ng/mL Sufficient*Glenis SANCHES. N Engl J Med. 2007;357:266-280Care must be taken in interpreting Vitamin D results fromdifferent laboratories and methodologies. Published datademonstrated that results from patients undergoinghemodialysis may show a negative bias when tested withvarious automated 25-OH vitamin D assays when compared toLC-MS/MS.When testing samples from patients whose predominant form ofVitamin D is Vitamin D2, such as patients receiving VitaminD2 supplementation, results that are subtherapeutic shouldbe confirmed with another method such as LC-MS/MS. Blood Venous blood specimen / Unknown 07/22/2024 10:05 AM EST 07/22/2024 11:44 AM EST us Lindsey Gramajo DO LAB BLOOD ORDERABLES Final R esult [facility] [address] [place], [place] [phone] * Vitamin B12 (Cobalamin) and Folate Panel, Serum (07/22/2024 10:05 AM EST) Vitamin B12 234 200 - 900 pg/mL [facility] Comment:NORMAL 200-900 PG/ML INDETERMINATE 160-199 PG/ML DEFICIENT < 160 PG/ML Folate 10.4 > or = 4.0 ng/mL [facility] Comment:Reference Values:> o r = 4.0 ng/mL< 4.0 ng/mL suggests folate deficiency Methotrexate, aminopterin and folinic acid(leucovorin) are chemotherapeutic agents whose molecularstructures are similar to folate; therefore, the Architectfolate assay cannot be used for patients using these drugs. Blood 07/22/2024 10:0 5 AM EST 07/22/2024 11:44 AM EST [facility] BLOOD ORDERABLES Final R esult Performing Organization Address [facility] Co de Phone Number [facility] [address] [place] [phone] * Albumin, Random Urine W/Creatinine (07/22/2024 10:05 AM EST) Creatinine, Urine 309.91 mg/dL [facility] Microalbumin Urine 29.0 mg/L [facility] Microalbum Creatinine Ratio Ur 9.3 <30 ug/mg cr [facility] Comment:Albumin/Creatinine R atio Reference Ranges: Normal: < 30 ug/mg creatinine Microalbuminuria: 30 - 300 ug/mg creatinineClinical Albuminuria: > 300 ug/mg creatinine Urine (Urine, Random) 07/22/2024 10:05 AM EST 07/22/2024 11:28 AM EST Lindsey Gramajo LAB URINE ORDERABLES Final R esult Performing Organization Address City/[facility]/ZIP Co de Phone Number [facility] [address] [place] [phone] * (ABNORMAL) CBC auto differential (07/22/2024 10:05 AM EST) White Blood Count 8.8 4.8 - 10.8 X10*3/uL [facility] Red Blood Count 4.46 4.20 - 5.50 X10*6/uL [facility] Hemoglobin 11.8(L) 12.0 - 16.0 g/dl [facility] Hematocrit 36.3(L) 37.0 - 47.0 % [facility] Mean Corpuscular Volume 81.4 80.0 - 98.0 fL [facility] Mean Corpuscular Hemoglobin 26.5(L) 27.0 - 33.0 pg [facility] Mean Corpuscular HGB Conc 32.5 31.0 - 35.0 g/dl [facility] Red Cell Distribution Width 13.2 11.0 - 16.0 % [facility] Platelet Count 331 160 - 400 X10*3/uL [facility] Mean Platelet Volume 9.9 9.4 - 12.3 fL [facility] Neutrophils Percent Auto 61.9 45 - 73 % [facility] Imm Gran Pct Auto 0.2 0.0 - 0.4 % [facility] Lymphocytes Percent Auto 27.3 20 - 40 % [facility] Monocytes Percent Auto 6.3 2 - 11 % [facility] Eosinophils Percent Auto 3.3 0 - 4 % [facility] Basophils Percent Auto 1.0 0 - 2 % [facility] NRBC Pct Auto 0.0 0.0 - 0.2 /100WBC [facility] Neutrophils Absolute Auto 5.4 2.0 - 8.3 x10*3/uL [facility] Imm Gran Abs Auto 0.02 0.00 - 0.03 X10*3/uL [facility] Lymphocytes Absolute Auto 2.4 1.2 - 4.9 X10*3/uL [facility] Monocytes Absolute Auto 0.6 0.1 - 1.2 X10*3/uL [facility] Eosinophils Absolute Auto 0.3 0.0 - 0.4 X10*3/uL [facility] Basophils Absolute Auto 0.1 0.0 - 0.2 X10*3/uL [facility] NRBC Abs Auto 0.000 0.0 - 0.012 X10*3/uL [facility] Blood Venous blood specimen / Unknown 07/22/2024 10:05 AM EST 07/22/2024 11:44 AM EST Lindsey Avila LAB BLOOD ORDERABLES Final R esult Performing Organization Address [facility] Co de Phone Number [facility] [address] [place] [address] [phone] * Hepatitis C Antibody with Reflex to HCV, RNA, Quantitative, Real-Time PCR (07/22/2024 10:05 AM EST) Pathologist [facility] [place] Hepatitis C Antibody Nonreactive Nonreactive [facility] Comment:Antibodies to HCV no t detected; does not exclude early acuteHCV infection. Blood Venous blood specimen / Unknown 07/22/2024 10:05 AM EST 07/22/2024 11:44 AM EST Lindsey Gramajo LAB BLOOD ORDERABLES Final R esult Performing Organization Address [facility] Co de Phone Number [facility] [address] [place] [address] [phone] * Iron And Total Iron Binding Capacity (07/22/2024 10:05 AM EST) [facility] [address] Iron 53 30 - 160 mcg/dL [facility] Total Iron Binding Capacity 324 228 - 428 mcg/dL [facility] Percent Iron Saturation 16 15 - 50 % [facility] Unsaturated Iron Binding 271 ug/dL [facility] Blood Venous blood specimen / Unknown 07/22/2024 10:05 AM EST 07/22/2024 11:44 AM EST [facility] BLOOD ORDERABLES Final R esult Performing Organization Address [facility] Co de Phone Number [facility] [address] [place] [address] [phone] * Hepatitis A Antibody, Total (07/22/2024 10:05 AM EST) Pathologist [facility] [place] Hepatitis A Antibody IgG Nonreactive Nonreactive [facility] Blood Venous blood specimen / Unknown 07/22/2024 10:05 AM EST 07/22/2024 11:44 AM EST Lindsey Vogelnataly DO LAB BLOOD ORDERABLES Final R esult Performing Organization Address [facility] Co de Phone Number [facility] [address] [place] [phone] * Alpha-Fetoprotein, Tumor Marker (07/22/2024 10:05 AM EST) [facility] [address] Alpha Fetoprotein 1.2 ng/mL [facility] Comment:Reference Range: <6. 1The use of AFP as a tumor marker in females is not recommended.This test was performed using the Arturo Coulterchemiluminescent method. Values obtained fromdifferent assay methods cannot be usedinterchangeably. AFP levels, regardless ofvalue, should not be interpreted as absoluteevidence of the presence or absence of disease.THIS TEST WAS PERFORMED AT:[email or web address] [place] [id number] SNEED MD Blood Venous blood specimen / Unknown 07/22/2024 10:05 AM EST 07/22/2024 11:44 AM EST Lindsey Avila DO LAB BLOOD ORDERABLES Final R esult Performing Organization Address [facility] Co de Phone Number [facility] [address] [place] [phone] * Chlamydia/N. Gonorrhoeae RNA, TMA, Urogenitial (07/22/2024 10:05 AM EST) [facility] [address] CT PCR NOT DETECTED Not Detect. [facility] Comment:A not detected test result does not exclude the possibilityof infection because test results can be affected byimproper specimen collection, concurrent antibiotic therapy,or the number of organisms in the specimen which may bebelow the sensitivity of the test. As with many diagnostictests, results from the Xpert CT/NG assay should beinterpreted in conjunction with other laboratory andclinical data available to the clinician.Xpert CT/NG performance has not been evaluated in patientsless than 14 years of age. The assay should not be used forthe evaluationof suspected sexual abuse or for other medico-legalindications. Additional testing is recommended in anycircumstance when false positive or false negative resultscould lead to adverse medical, social or psychologicalconsequences. NG PCR NOT DETECTED Not Detect. [facility] Comment:A not detected test result does not exclude the possibilityof infection because test results can be affected byimproper specimen collection, concurrent antibiotic therapy,or the number of organisms in the specimen which may bebelow the sensitivity of the test. As with many diagnostictests, results from the Xpert CT/NG assay should beinterpreted in conjunction with other laboratory andclinical data available to the clinician.Xpert CT/NG performance has not been evaluated in patientsless than 14 years of age. The assay should not be used forthe evaluationof suspected sexual abuse or for other medico-legalindications. Additional testing is recommended in anycircumstance when false positive or false negative resultscould lead to adverse medical, social or psychologicalconsequences. Urine Urethral structure / Unknown 07/22/2024 10:05 AM EST 07/22/2024 11:28 AM EST Narrative [facility] - 07/22/2024 4:12 PM EST Urine Lindsey Gramajo DO LAB MICROBIOLOGY - GENERAL O RDERABLES Final Result [facility] [address] [place] [phone] * Hepatitis B surface antigen, EIA (07/22/2024 10:05 AM EST) Hepatitis B Surface Ag Negative Negative [facility] Blood Venous blood specimen / Unknown 07/22/2024 10:05 AM EST 07/22/2024 11:44 AM EST Lindsey Gramajo DO LAB BLOOD ORDERABLES Final R esult Performing Organization Address City/[facility]/ZIP Co de Phone Number [facility] [address] [place] [address] [phone] * Hepatitis B Core Antibody, Total (07/22/2024 10:05 AM EST) Hepatitis B Core Antibody Nonreactive Nonreactive [facility] Blood Venous blood specimen / Unknown 07/22/2024 10:05 AM EST 07/22/2024 11:44 AM EST Lindsey Gramajo [employer] LAB BLOOD ORDERABLES Final R esult Performing Organization Address [facility] de Phone Number [facility] [address] [place] [address] [phone] * RPR (Monitor) with Reflex to??Titer (07/22/2024 10:05 AM EST) Pathologist [facility] [place] RPR (Monitor) w/Refl Titer NON-REACTI VE NON-REACT DARY [facility] Comment:THIS TEST WAS PERFOR MED AT:[employer] [address] [phone] SNEED MD Rapid Plasma Reagin Ab Titer TNP [facility] Blood Venous blood specimen / Unknown 07/22/2024 10:05 AM EST 07/22/2024 11:44 AM EST Lindsey Gramajo LAB BLOOD ORDERABLES Final R esult Performing Organization Address [facility] Co de Phone Number [facility] [address], [place] [phone] * HIV-1/2 Antigen and Antibodies, Fourth Generation, with Reflexes (07/22/2024 10:05 AM EST) HIV AB/AG Nonreactive Nonreactive [facility] Comment:HIV-1 p24 Ag and/or HIV-1/HIV-2 Ab not detected.A test result that is nonreactive does not exclude thepossibility of exposure to or infection with HIV-1 and/orHIV-2. Nonreactive results in this assay for individualswith prior exposure to HIV-1 and/or HIV-2 may be due toantigen and antibody levels that are below the limit ofdetection of this assay.The [employer] HIV Ag/Ab Combo assay result andsupplemental assay results should be interpreted inconjunction with the patient's clinical presentation,history and other laboratory results. If the results areinconsistent with clinical evidence, additional testing issuggested to confirm the result. Blood Venous blood specimen / Unknown 07/22/2024 10:05 AM EST 07/22/2024 11:44 AM EST Lindsey Gramajo DO LAB BLOOD ORDERABLES Final R esult Performing Organization Address [facility]/ZIP Co de Phone Number [facility] [address] [place] [phone] * Hepatitis B Surface Antibody, Qualitative (07/22/2024 10:05 AM EST) ~Hepatitis B Surface Antibody REACTIVE Nonreactive [facility] Comment:REACTIVE: > 11.99 mI U/mL Blood Venous blood specimen / Unknown 07/22/2024 10:05 AM EST 07/22/2024 11:44 AM EST Lindsey Gramajo DO LAB BLOOD ORDERABLES Final R esult Performing Organization Address City/[facility]/ZIP Co de Phone Number [facility] [address] [place] [phone] * TSH (07/22/2024 10:05 AM EST) Thyroid Stimulating Hormone 2.12 0.32 - 4.0 uIU/mL [facility] Comment:TSH 3rd Generation ( [facility]) Blood Venous blood specimen / Unknown 07/22/2024 10:05 AM EST 07/22/2024 11:44 AM EST Lindsey Gramajo DO LAB BLOOD ORDERABLES Final R esult Performing Organization Address City/[facility]/ZIP Co de Phone Number [facility] [address] [place] [phone] * T4, Free (07/22/2024 10:05 AM EST) Free T4 (Free Thyroxine) 0.78 0.71 - 1.85 ng/dL [facility] Blood Venous blood specimen / Unknown 07/22/2024 10:05 AM EST 07/22/2024 11:44 AM EST Lindsey Gramajo LAB BLOOD ORDERABLES Final R esult Performing Organization Address [facility] Phone Number [facility] [address] [place] [phone] * (ABNORMAL) Hemoglobin A1c (07/22/2024 10:05 AM EST) Hemoglobin A1c 6.2(H) <6.0 % [facility] Comment:Hemoglobin A1C Refer ence Range Adults: 4.8 - 6.0 % Non diabetic: < 6.0 % Goal: < 7.0 %Additional Action Suggested: > 8.0 %Note: Hemoglobin A1c results are invalid for patients with abnormal amounts of HbF. Blood transfusions may impact the HbA1c concentration in the patient sample. Estimated Average Glucose 131 mg/dL [facility] Comment:eAG = Estimated ave rage glucose which is %A1C expressed asaverage glucose, using the formula of the Z7C-GmouwioUlnvyrb Glucose study (ADAG), Diabetes Care, Vol.31,#8,2007 Blood Venous blood specimen / Unknown 07/22/2024 10:05 AM EST 07/22/2024 11:44 AM EST Lindsey Gramajo DO LAB BLOOD ORDERABLES Final R esult Performing Organization Address [facility] Co de Phone Number [facility] [address] [place] [address] [phone] * Ferritin (07/22/2024 10:05 AM EST) Ferritin 35 10 - 122 ng/mL [facility] Blood Venous blood specimen / Unknown 07/22/2024 10:05 AM EST 07/22/2024 11:44 AM EST us Lindsey Gramajo DO LAB BLOOD ORDERABLES Final R esult [facility] [address] [place] [phone] * Hepatic Function Panel (07/22/2024 10:05 AM EST) Pathologist [facility] [place] Bilirubin, Total 0.3 0.0 - 1.0 mg/dL [facility] Bilirubin, Direct 0.1 0.0 - 0.5 mg/dL [facility] Aspartate Amino Transferase 22 5 - 31 U/L [facility] Alanine Aminotransferase 15 0 - 31 U/L [facility] Total Protein 7.4 6.5 - 8.0 g/dL [facility] Albumin Level 4.0 3.5 - 5.0 g/dL [facility] Alkaline Phosphatase 65 39 - 117 U/L [facility] Blood Venous blood specimen / Unknown 07/22/2024 10:05 AM EST 07/22/2024 11:44 AM EST us Lindsey Gramajo DO LAB BLOOD ORDERABLES Final R esult [facility] [address] [place] [phone] * Lipid Panel, Standard (07/22/2024 10:05 AM EST) Triglycerides 85 <150 mg/dL [facility] Comment:Desirable Triglyceri de: less than 150 mg/dLBorderline High Triglyceride 150-199 mg/dLHigh Triglyceride: 200-499 mg/dLVery High Triglyceride: greater than or equal to 5OO mg/dL Cholesterol 146 <200 mg/dL [facility] Comment:Desirable Cholestero l: less than 200 mg/dLBorderline High Cholesterol: 200-239 mg/dLHigh Cholesterol: greater than 239 mg/dL LDL Cholesterol Calculated 82 <100 mg/dL [facility] Comment:Desirable LDL: less than 100 mg/dLNear Optimal/Above Optimal LDL: 110- 129 mg/dLBorderline High LDL: 130-159 mg/dLHigh LDL: 160-189 mg/dLVery High LDL: greater than or equal to 190 mg/dL HDL Cholesterol 47 >40 mg/dL [facility] Comment:Desirable HDL: great er than 40 mg/dL Note: This HDL assay may give artificially low results in patients with liver disease. Blood Venous blood specimen / Unknown 07/22/2024 10:05 AM EST 07/22/2024 11:44 AM EST us Lindsey Gramajo DO LAB BLOOD ORDERABLES Final R esult [facility] [address] [place] [phone] * (ABNORMAL) Basic Metabolic Panel (07/22/2024 10:05 AM EST) Sodium 136 135 - 145 mmol/L [facility] Potassium 3.4 3.3 - 5.1 mmol/L [facility] Chloride 103 96 - 108 mmol/L [facility] Carbon Dioxide 25 22 - 29 mmol/L [facility] Anion Gap 11(L) 12 - 20 [facility] Urea Nitrogen (BUN) 11 9 - 16 mg/dL [facility] Creatinine, Serum 0.69 0.5 - 1.4 mg/dL [facility] Estimated Glomerular Filt Rate >60 [facility] Comment:Chronic Kidney Disea se: Estimated GFR < 60 mL/min/1.91j0Oibkrm Kidney Disease: Estimated GFR < 15 mL/min/1.73m2 Glucose 89 60 - 115 mg/dL [facility] Calcium 9.1 8.4 - 10.2 mg/dL [facility] Blood Venous blood specimen / Unknown 07/22/2024 10:05 AM EST 07/22/2024 11:44 AM EST Lindsey Gramajo DO LAB BLOOD ORDERABLES Final R esult [facility] [address], [place] [phone] from Last 3 Months Insurance * Guarantor: Nuria Dwyer Account Type Relation to Patient Date of Phone Billing Address Personal/Family Self [address] MD Care Teams Mutual [employer] Accountant Relationship Specialty Start Date End Date Lindsey Gramajo DO [address] [place] [address] PCP - General Family Medicine 05/22/24
--- OUTSIDE RECORDS SUMMARY | 2024-09-25 19:44 | XMS_ITS | Encounter Summary ---
Author Organization [employer] [facility] Address [address] [place] [address] [address] [place] [address] Care Team Providers Care Matte Cutter Name Role Phone Elina Cohen Primary Care Provider [phone] Zuleika Baltazar MD Primary Care Provide r Lindsey Gramajo DO Primary Care Provider [phone] Reason for Visit * Reason Onset Date Comments Nurse Triage 02/05/2024 Encounter Details Date Type Department Care Team (Late st Contact Info) Description 02/05/2024 Telephone [facility] MEDICINE [address], [place] [phone] Elina Cohen FNP [address] [place] [address] Nurse Triage Social History Tobacco Use Types Packs/Day Years Used Date Smoking Tobacco: Never Alcohol Use Standard Drinks/Week Comments Yes 0 (1 standard drink = 0.6 oz pur e alcohol) Sometimes Depression Answer Date Recorded Patient Health Questionnaire-9 Score 15 01/08/2024 Patient Health Questionnaire-9 Score 15 01/08/2024 Last PHQ-9: Questionnaire Data Not on file 0 01/08/2024 Depression Answer Date Recorded Patient Health Questionnaire-2 Score 6 01/08/2024 Comments Unknown Sex and Gender Information Value Date Recorded Sex Assigned at Female 06/26/2022 10:15 AM EDT Legal Sex Female 10:15 AM EDT Gender Identity Female 06/26/2022 10:15 AM EDT Sexual Orientation Straight 06/26/2022 10 :15 AM EDT documented as of this encounter Miscellaneous Notes * Telephone Encounter - Bozena Toure LPN - 02/05/2024 9:37 AM EDT Triage call returned to patient who reports noted blood with wiping in urine. Patient with low backpain is taking OTC Tylenol for discomfort. Patient reports that blood in urine started on Sunday and worse by the day. Is at work until 3 pm. No fever. Patient asked as she noted in her MY Chart thatUrine culture on 01/17/24 showed > 100K Lactobacillus and now she has UTI symptoms. Disposition re viewed and no PCP or Team appts available at time of call. Patient advised of [facility] hours and availability for today and tomorrow at time of call. Triage nurse informed the patient may have a wait of 1-2 hours because [facility] In [facility] may have delays from patient???s walking in with urgent medical needs. Insurance verified at time of call. Team tasked to review with PCP but patient advised to present to [facility] after work. Protocol Used: Urine - Blood In (Adult) Protocol-Based Disposition: See in Office or Video Visit Today Override (Final) Disposition: Discuss with PCP and Callback by Nurse Today Override Reason: Can't get off work Positive Triage Question: * Side (flank) or back pain present * All higher-acuity triage questions were negative Care Advice Discussed: * Drink Extra Fluids * Reasons To Call Back - Fever or pain occurs - You become worse * Telephone Encounter - Trent Byrnes - 02/05/2024 9:28 AM EDT Symptoms: Urine - Blood In, Urine Symptoms Outcome: Schedule an urgent appointment (within 1 hour) or talk to a nurse or provider soon Reason: Caller denied all higher acuity questions The caller accepted this outcome documented in this encounter Plan of Treatment Upcoming Encounters Date Type Department Care Team (Late st Contact Info) Description 10/30/2024 1:45 PM EST Office Visit [facility] OPTOMETRY [address] [place] [address] Josephine Lawson, OD [address] [place] [address] documented as of this encounter Visit Diagnoses Not on filedocumented in this encounter Additional Health Concerns Assessment Noted Time PHQ-9 Depression Total Score: 15 024 1:53 PM EDT documented as of this encounter Care Teams Matte Cutter Relationship Specialty Start Date End Date Elina Cohen FNP [address] [place] [address] PCP - General Family Medicine 03/06/23 04/28/24 Zuleika Baltazar MD [address] [place] [phone] PCP - General Internal Medicine 04/29/24 05/21/24 Lindsey Gramajo DO [address] [place] [phone] PCP - General Family Medicine 05/22/24 documented as of this encounter
== END 2024-09-25 17:45 | disposition home or self-care (01) ==
LOC: HO.HHCLNP 17:44
PROVIDERS: Visit Provider Nurse Practitioner Primary Care
DX: Z13.89 Encounter for screening for other disorder (principal)
CPT/HCPCS: 81515

== ENCOUNTER 2024-09-30 10:23 | Outpatient (REF) | payer MEDICAID, SELFPAY ==
--- OUTSIDE RECORDS SUMMARY | 2024-09-30 17:55 | XMS_ITS | Clinical Summary ---
Author Organization [facility] Address [address] [place] [address] Care Team Providers Care Medical Appointment Scheduler Name Role Phone Pcp, No Primary Care [...] this topic Medical Devices Implanted Type Area Business Programmer Device Identifier Shelf Expiration Date Model / Serial / Lot Natrelle Inspira Cohesive Breast Implant Implanted:Qty: 1 on 11/05/2020 by Carlos Cerda MD at [facility] Breast Right: Breast [employer] 11/05/2024 [id number] / [id number] / Natrelle Inspira Cohesive Breast Implant Implanted:Qty: 1 on 11/05/2020 by Carlos Cerda MD at [facility] Breast Left: Breast [employer] 05/22/2025 [id number] / [id number] / Urogyn [employer]rog[employer] Care Teams Medical Appointment Scheduler Relationship Specialty Start Date End Date Pcp, No PCP - General General Medicine 10/22/20
--- OUTSIDE RECORDS SUMMARY | 2024-09-30 17:55 | XMS_ITS | Encounter Summary ---
Author Organization [employer] Address [address] [facility] [address] 7t [place] [address] Care Team Providers Care Safety Glass Installer Name Role Phone uRlaLindsey alberts Primary Care Provider Encounter Details Date [...] Office Visit [facility] [address] [place], [place] [phone] Josephine Lawson, OD [address] [place] [address] documented as of this encounter Visit Diagnoses Not on filedocumented in this encounter Additional Health Concerns Assessment Noted Time PHQ-9 Depression Total Score: 14 024 3:31 PM EST documented as of this encounter Care Teams Safety Glass Installer Relationship Specialty Start Date End Date Lindsey Gramajo DO 230 [place] [address] PCP - General Family Medicine 05/22/24 documented as of this encounter
--- OUTSIDE RECORDS SUMMARY | 2024-09-30 17:55 | XMS_ITS | Encounter Summary ---
Author Organization [facility] Address [address] [place] [address] Care Team Providers Care In Store Representative Name Role Phone Pcp, No Primary Care Provider Unavailabl e Encounter Details Date Type Department Care Team (Late st Contact Info) Description 11/01/2020 Lab Requisition Jermyn COVID-19 Testing [facility] [address] [place] [address] Carlos Cerda MD [address] [place], [place] [phone] Encounter for laboratory testing for COVID-19 virus [...] in this encounter Results * COVID-19 RT-PCR ([facility]) (11/01/2020 1:19 PM EST) COVID-19 RT-PCR SARS-COV-2 NOT DETECTED Not Detected 11/02/2020 9:00 PM EST [facility] Comment: ADDITIONAL INFORMATION The Qitio COVID-19 RT-PCR Assay is Real-Time Reverse Amalgamator Polymerase Chain Reaction (care program resident-PCR) for the in vitro qualitative detection of three SARS-Cov-2 target sequences unique to the coronavirus disease 2019 (COVID-19). This is an Emergency Use Authorization (EUA) in vitro diagnostic (IVD) test that has been modified to include the MarketVibe automated liquid handler. Its analytical performance characteristics have been determined by the set up operator tool and verified by [facility] in a manner consistent with CLIA [...] at the following links: For Healthcare Providers: https://www.fda.gov/media/627989/download For Patients: https://www.fda.gov/media/048083/download TEST INTERPRETATION Data analysis and interpretation is performed using the Side.Cr COVID-19 Interpretive Software. SARS-CoV-2 Not Detected: negative [...] included for positive specimens. As per the BTC Trip COVID-19 Combo Kit EUA documentation, each COVID target with a Ct value of <=37 is called Detected. Please note: The Qitio COVID-19 RT-PCR Assay is a qualitative test, [...] quarantine. For more information please refer to: https://www.cdc.gov/coronavirus/2019-ncov/lab/faqs.html#Mhmgbmruepry-Xhehdmz-jv- Diagn ostic-Tests TEST LIMITATIONS Positive results are [...] system. For further details refer to the [employer] TaqPath COVID-19 Combo Kit EUA submission (https://www.fda.gov/media/372907/download). ----- Test performed by [facility], [address] [place] [address] CLIA# [id number] ?[id number] ? Bradley Gallo M.D., Ph.D., [facility], Clinical Detective Chief Microbiology Nasopharyngeal swab / Unknown 11/01/2020 1:19 PM EST 11/01/2020 1:19 PM EST Narrative [facility] - 11/02/2020 9:00 PM EST Performed at [facility], [address] [place] [address], [place], [place] Lic 0695, CLIA [id number] Carlos Cerda MD MICROBIOLOGY - GENER AL ORDERABLES [facility] [address] [place] [address] documented in this encounter Visit Diagnoses Diagnosis Encounter for laboratory testing for COVID-19 virus documented in this encounter Care Teams In Store Representative Relationship Specialty Start Date End Date Pcp, No PCP - General General Medicine 10/22/20 documented as of this encounter
--- OUTSIDE RECORDS SUMMARY | 2024-09-30 17:55 | XMS_ITS | Encounter Summary ---
Author Organization [employer] Address [address] [facility] 7t [place] [address] Care Team Providers Care Optical Worker Name Role Phone Lindsey Gramajo DO Primary Care Provider [phone] Reason for Visit * Reason Onset Date Comments Nurse Triage 09/25/2024 Encounter Details Date Type Department Care Team ([facility] st Contact Info) Description 09/25/2024 Telephone [facility] MEDICINE [address] [place] [address] Lindsey Gramajo DO 230 [place], [place] [phone] Nurse Triage Social History Tobacco Use Types [...] Center 09/25/2024 2:30 PM ALFREDO Oliva MEDICINE [facility] 10/30/2024 1:45 PM Josephine Lawson OD VISION [facility] Insurance verified as active per Real Time Eligibility in [employer]. Protocol Used: Rash or Redness - Widespread [...] Description 10/30/2024 1:45 PM EST Office Visit [facility] OPT[facility] [address] [place] [address] Josephine Lawson, OD [address] [place] [address] documented as of this encounter Visit Diagnoses Not on filedocumented in this encounter Additional Health Concerns Assessment Noted Time PHQ-9 Depression Total Score: 14 024 3:31 PM EST documented as of this encounter Care Teams Optical Worker Relationship Specialty Start Date End Date Lindsey Gramajo DO 230 [place] [address] PCP - General Family Medicine 05/22/24 documented as of this encounter
--- OUTSIDE RECORDS SUMMARY | 2024-09-30 17:55 | XMS_ITS | Encounter Summary ---
Author Organization [employer] [facility] Address [address] [facility] 7t [place] [address] Care Team Providers Care Coloring Machine Operator Name Role Phone Lindsey Gramajo DO Primary Care Provider [phone] Reason for Visit * Reason Onset Date Comments Lab Orders 09/26/2024 Received call fr [facility] lab. BV Panel specimen is being rejected because the specimen cap was not closed tightly and the liquid in the tube spilled out. Patient will need to submit new specimen. Message sent to ordering provider ELMER Oliva and [place]. MULLIG[place] to contact patient for recollect. Encounter Details Date Type Department Care Team (Late st Contact Info) Description 09/26/2024 Telephone [facility] MEDICINE [address] [place] [address] Maira Fontanez [place] Lab Orders (Received call from [facility] lab. BV Panel specimen is being rejected [...] 09/26/2024 10:46 AM EST Received call from [facility] lab. BV Panel specimen is being rejected because the specimen cap was not closed tightly and the liquid in the tube spilled out. Patient will need to submit new specimen. Message sent to ordering provider ELMER Oliva and [place]. [place] to contact patient for recollect. documented in this encounter Plan of Treatment Upcoming Encounters Date Type Department Care Team ([facility] st Contact Info) Description 10/30/2024 1:45 PM EST Office Visit [facility] OPT[facility] [address] [place] [address] Josephine Lawson, OD [address] [place] [address] documented as of this encounter Visit Diagnoses Not on filedocumented in this encounter Additional Health Concerns Assessment Noted Time PHQ-9 Depression Total Score: 14 024 3:31 PM EST documented as of this encounter Care Teams Coloring Machine Operator Relationship Specialty Start Date End Date Lindsey Gramajo DO [address] [place] [address] PCP - General Family Medicine 05/22/24 documented as of this encounter
--- OUTSIDE RECORDS SUMMARY | 2024-09-30 17:55 | XMS_ITS | Encounter Summary ---
Author Organization [employer] Address [address] [place] [address] 7t [place] [address] Care Team Providers Care Ironer Or Presser Name Role Phone Lindsey Gramajo DO Primary Care Provider [phone] Reason for Referral * Consultation (Routine) - Authorized Specialty Diagnoses / Procedures Referred By Contac t Referred To Contact Gastroenterology Diagnoses Mucus in stool Summer Aguilar ANP [address] [place] [address] Phone: tel: fax: [facility] Referral ID Status Reason Start Date Expiration Date Visits Requested Visits Authorized [id number] Authorized Specialty Services Required 09/29/2024 09/29/2025 6 6 * Consultation (Routine) - Authorized Specialty Diagnoses / Procedures Referred By Contnat t Referred To Contact Allergy Diagnoses Non-seasonal allergic rhinitis, unspecified trigger Summer Aguilar ANP [address] [place] [address] Phone: tel: fax: Nick Wellington MD [address] [place] [address] Drive [address] [place] [address] Phone: tel: fax: Referral ID Status Reason Start Date Expiration Date Visits Requested Visits Authorized [id number] Authorized Specialty Services Required 09/29/2024 09/29/2025 12 12 Reason for Visit * Reason Comments sick on site Encounter Details Date Type Department Care Team (Late st Contact Info) Description 09/25/2024 2:30 PM EST Office Visit [facility] MEDICINE 230 [place] [address] Summer Aguilar ANP [address] [place] [address] Subacute cough (Primary Dx); SOB (shortness of [...] well daily as needed. Will refer to cad draftsman. For your cough: Take famotidine 20 mg [...] well daily as needed. Will refer to cad draftsman. For your cough: Take famotidine 20 mg [...] Description 10/30/2024 1:45 PM EST Office Visit [facility] OPTOM[facility] [address] [place], [place] [phone] Josephine Lawson, OD [address] [place] [address] Scheduled Referrals Name Type Priority Associated Diagnoses [...] VAGINALIS DETECTION BY PCR TNP Not Detect [facility] Comment:SPECIMEN CAP NOT ASHKAN SED PROPERLY, NO SPECIMEN AVAILABLE TOTEST. CALLED TO BRIAN 09/26/24 AT 1030 BY VIJAYA. BACTERIAL VAGINOSIS DETECTION BY PCR TNP Negative [facility] KELLY GROUP DETECTION BY PCR TNP Not Detect [facility] Kelly glab krusei PCR TNP Not Detect [facility] Swab Vaginal structure / Unknown 09/25/2024 3:40 PM EST 09/25/2024 5:45 PM EST [facility] MICROBIOLOGY - GENERAL ORDER LAURA Final Result [facility] [address] [place] [address] [phone] documented in this encounter Visit Diagnoses [...] documented as of this encounter Care Teams Ironer Or Presser Relationship Specialty Start Date End Date Lindsey Gramajo DO [address] [place] [id number] PCP - General Family Medicine 05/22/24 documented as of this encounter
--- OUTSIDE RECORDS SUMMARY | 2024-09-30 17:55 | XMS_ITS | Encounter Summary ---
Author Organization [employer] Address [address] [facility] [address] [address] 7t [place] [address] Care Team Providers Care Electric Organ Inspector And Repairer Name Role Phone Avila Lindsey Primary Care Provider [phone] Encounter Details Date Type Department Care Team (Late st Contact Info) Description 09/29/2024 Telephone [facility] MEDICINE 230 [place], [place] [phone] Summer Aguilar ANP [address] [place] [address] Social History Tobacco Use Types Packs/Day Years [...] Description 10/30/2024 1:45 PM EST Office Visit [facility] OPTOMETRY [address] [place], [place] [phone] Josephine Lawson, OD [address] [place] [address] documented as of this encounter Visit Diagnoses Not on filedocumented in this encounter Additional Health Concerns Assessment Noted Time PHQ-9 Depression Total Score: 14 024 3:31 PM EST documented as of this encounter Care Teams Electric Organ Inspector And Repairer Relationship Specialty Start Date End Date Lindsey Gramajo DO [address] [place] [address] PCP - General Family Medicine 05/22/24 documented as of this encounter
--- OUTSIDE RECORDS SUMMARY | 2024-09-30 17:55 | XMS_ITS | Encounter Summary ---
Author Organization [facility] Address [address] [place] [address] 7t [place] [address] Care Team Providers Care Mat Gauger Name Role Phone Elina Cohen Primary Care Provider [phone] Zuleika Baltazar MD Primary Care Provide r Lindsey Gramajo DO Primary Care Provider [phone] Reason for Visit * Reason Onset Date Comments Nurse Triage 02/05/2024 Encounter Details Date Type Department Care Team (Late st Contact Info) Description 02/05/[address] [facility] MEDICINE [address] [place], [place] [phone] Elina Cohen FNP [address] [place] [address] Nurse Triage Social History Tobacco Use Types [...] at time of call. Patient advised of [facility] hours and availability for today and tomorrow at time of call. Triage nurse informed the patient may have a wait of 1-2 hours because [facility] may have delays from patient???s walking in with urgent medical needs. Insurance verified at time of call. Team tasked to review with PCP but patient advised to present to [facility] after work. Protocol Used: Urine - Blood [...] 10/30/2024 1:45 PM EST Office Visit [facility] OPTOM[facility]RY [address] [place] [address] Josephine Lawson, OD [address] [place] [address] documented as of this encounter Visit Diagnoses Not on filedocumented in this encounter Additional Health Concerns Assessment Noted Time PHQ-9 Depression Total Score: 15 024 1:53 PM EDT documented as of this encounter Care Teams Mat Gauger Relationship Specialty Start Date End Date Elina Cohen FNP [address] [place] [address] PCP - General Family Medicine 03/06/23 04/28/24 Zuleika Baltazar MD [address] [place] [address] PCP - General Internal Medicine 04/29/24 05/21/24 Lindsey Gramajo DO [address] [place] [address] PCP - General Family Medicine 05/22/24 documented as of this encounter
--- OUTSIDE RECORDS SUMMARY | 2024-09-30 17:55 | XMS_ITS | Encounter Summary ---
Author Organization [employer] Address [address] [facility] 7t [place] [address] Care Team Providers Care Manager Recovery Name Role Phone Lindsey Gramajo DO Primary Care Provider [phone] Reason for Visit * Reason Onset Date Comments Lab Orders 09/26/2024 Encounter Details Date Type Department Care Team ([facility] st Contact Info) Description 09/26/2024 Telephone [facility] MEDICINE 230 [place] [address] Trisha Coulter RN 230 [place] [address] Lab Orders Social History Tobacco Use Types [...] 09/26/2024 10:37 AM EST Received call from [facility] lab. BV Panel specimen is being rejected [...] Description 10/30/2024 1:45 PM EST Office Visit [facility] OPTOM[facility] [address] [place] [address] Josephine Lawson, OD [address] [place] [address] documented as of this encounter Visit Diagnoses Not on filedocumented in this encounter Additional Health Concerns Assessment Noted Time PHQ-9 Depression Total Score: 14 024 3:31 PM EST documented as of this encounter Care Teams Manager Recovery Relationship Specialty Start Date End Date Lindsey Gramajo DO 230 [place] [address] PCP - General Family Medicine 05/22/24 documented as of this encounter
--- OUTSIDE RECORDS SUMMARY | 2024-09-30 17:55 | XMS_ITS | Encounter Summary ---
Author Organization [employer] [facility] Address [address] [place] [address] Care Team Providers Care Plastic Mould Maker Name Role Phone Alfonso Figueroa [facility] Primary Care Provider Brittany Sam [facility] Primary Care Provider [phone] Elina Cohen [facility] Primary Care Provider [phone] Zuleika Baltazar MD Primary Care Provide r Lindsey Gramajo DO Primary Care Provider [phone] Encounter Details Date Type Department Care Team (Late Contact Info) Description 09/14/2022 Abstract [facility] [address] [place], [place] [phone] Provider, MD Cesar Social History Tobacco Use [...] Description 10/30/2024 1:45 PM EST Office Visit [facility] [address] [place], [place] [phone] Josephine Lawson, OD [address] [place] [address] documented as of this encounter Visit Diagnoses Not on filedocumented in this encounter Care Teams Plastic Mould Maker Relationship Specialty Start Date End Date Alfonso Figueroa FNP PCP - General 07/18/22 10/25/22 Brittany Almanza FNP PCP - General Family Medicine 10/26/22 03/05/23 Elina Cohen FNP [address] [place] [address] PCP - General Family Medicine 03/06/23 04/28/24 Zuleika Baltazar MD [address] [place] [id number] PCP - General Internal Medicine 04/29/24 05/21/24 Lindsey Gramajo DO [address] [place] [address] [id number] PCP - General Family Medicine 05/22/24 documented as of this encounter
--- OUTSIDE RECORDS SUMMARY | 2024-09-30 17:55 | XMS_ITS | Encounter Summary ---
Author Organization [employer] Address [address] [place] [address] Care Team Providers Care File Clerk Data Entry Name Role Phone Avila Lindsey Primary Care Provider [phone] Encounter Details Date Type Department Care Team (Late st Contact Info) Description 09/26/2024 Orders Only [facility] [address] [place], [place] [phone] Summer Aguilar ANP [address] [place], [place] [phone] Vaginal discharge (Primary Dx) Social History Tobacco [...] Description 10/30/2024 1:45 PM EST Office Visit [facility] [address] [place] [address] Lescindy Josephine, OD [address] [place] [address] Scheduled Orders Name Type Priority Associated Diagnoses [...] documented as of this encounter Care Teams File Clerk Data Entry Relationship Specialty Start Date End Date Lindsey Gramajo DO [address] [place] [address] PCP - General Family Medicine 05/22/24 documented as of this encounter
--- OUTSIDE RECORDS SUMMARY | 2024-09-30 17:56 | XMS_ITS | Clinical Summary ---
Author Organization [employer] Address [address] [facility] [address] [facility] [address] [place] [address] Care Team Providers Care Fitter [employer] Name Role Phone Anupama Gramajofer Primary Care Provider [phone] Allergies Active Allergy Reactions Criticality Noted Date [...] 4 Active Blood Glucose Monitoring Suppl (FreeStyle Alma Lite) w/Device kit Use to test blood [...] intervention , [facility], Patient to engage in [...] intervention , Patient to reach out to [facility] team as needed, Patient to engage [...] suggesting possible ischemia (report of EKG from [facility] 11/29/23 normal) and exam with tachycardia [...] Encounters Date Type Department Care Team Description 09/30/2024 2:20 PM EST Office Visit [facility] [address] [place] [phone] Colleen Rust MD Possible exposure to STI (Primary Dx); Itching in the vaginal area 09/29/2024 Telephone [facility] [address] [place] [phone] Summer Aguilar ANP 09/26/2024 Orders Only [facility] [address] [place] [phone] Summer Aguilar ANP Vaginal discharge (Primary Dx) 09/26/2024 Telephone [facility] [address] [place] [phone] Maira Fontanez MA Lab Orders (Received call from [facility] lab. BV Panel specimen is being rejected because the specimen cap was not closed tightly and the liquid in the tube spilled out. Patient will need to submit new specimen. Message sent to ordering provider ELMER Oliva and MA. MULLIGAN to contact patient for recollect. //) 09/26/[address] [phone] Trisha Coulter, supervisor line department Orders 09/25/2024 2:30 PM EST Office Visit [address] [address] Summer Aguilar ANP Subacute cough (Primary Dx); SOB (shortness of breath); Mucus in stool; Generalized pruritus; Vaginal discharge; Essential hypertension; Non-seasonal allergic rhinitis, unspecified trigger; Family history of Crohn's disease 09/25/2024 Travel 09/25/[address] [phone] Lindsey Gramajo DO Nurse Triage 07/28/[address] [address] Radha Fernandez RN 07/25/[address] [address] Cintia Payne MD 07/23/[address] [address] Lindsey Gramajo DO 07/23/[address] [address] Lindsey Gramajo DO Med Refill 07/21/[address] [address] Lindsey Gramajo DO Nurse Triage 07/08/2024 10:45 AM EST Office Visit [address] [phone] Lindsey Gramajo DO Routine history and physical examination of adult (Primary Dx); New onset type 2 diabetes mellitus (CMS/HCC); Essential hypertension; Anxiety; Chronic allergic rhinitis; Epigastric pain; Candidal intertrigo; Keratosis pilaris; BMI 37.0-37.9, adult; Encounter for immunization 07/08/2024 Travel 06/30/2024 Patient Outreach [facility] [address] [place] [phone] Lindsey Gramajo DO Pre-visit Planning (SDPR screening completed on 03/07/2024) from Last 3 Months Immunizations Name Administration Dates Next Due DTaP 12/07/1994, 1,11/13/1990,03/15,01/10/1990 HPV, Quadrivalent 11/04/2009 Hep B, Adolescent or Pediatric 10/12/1998,1997,04/09/1998 Hib ([facility]) 01/28/1991 IPV 12/07/1994, 1,03/15/1990,01/10 Influenza injectable quadriv [...] Sign Reading Time Taken Comments Blood Pressure 129/88 09/30/2024 2:41 PM EST Pulse 83 09/30/2024 2:41 PM EST Temperature 36.1 ??C (97 ??F) 09/30/2024 2:41 PM EST Respiratory Rate 20 09/30/2024 2:41 PM EST Oxygen Saturation 100% 09/30/2024 2:41 PM EST Inhaled Oxygen Concentration - - Weight 95.8 kg (211 lb 3.2 oz) 09/30/2024 2:41 P M EST Height 162.6 cm (5' 4 ) 09/30/2024 2:41 PM EST Body Mass Index 36.25 09/30/2024 2:41 PM EST Plan of Treatment Upcoming Encounters Date Type Department Care Team (Late st Contact Info) Description 10/30/2024 1:45 PM EST Office Visit [facility] [address] [place] [address] Josephine Lawson, OD [address] [place] [address] Health Maintenance Due Date Last Done Comments [...] - PCV) 04/15/2020 04/15/2019 COVID-19 Vaccine ( season) 2024 10/20/2020, 09/22/2020 Depression Monitoring (PHQ-9) 01/05/2025 07/08/2024, 07/08/2024 Diabetes: Hemoglobin A1C 01/19/2025 024, 03/18/2024, 06/29/2023, Additional history exists Alcohol/Substance Use Screening 03/07/2025 03/07/2024 SDOH Screening 03/07/2025 03/07/2024 Depression Screening 07/08/2025 07/08/2024, 07/08/20 24 Diabetes: Urine Protein Screening 07/22/2025 07/22/2024 Lipid Panel 07/22/2025 07/22/2024, 04/0 02/2022, 04/27/2021, Additional history exists Tobacco Screening 09/30/2025 09/30/2024 DTaP/Tdap/Td Vaccines (7 - Td or Tdap) [...] Procedure Name Priority Date/Time Associated Diagnosis Comments POCT URINALYSIS DIPSTICK Routine 09/30/2024 3:08 PM EST Itching in the vaginal area BACTERIAL VAGINOSIS PANEL Routine 09/25/2024 3:40 PM [...] immunization from Last 3 Months Results * (ABNORMAL) POCT Urinalysis (09/30/2024 3:08 PM EST) Color, UA Yellow Clarity, UA Clear Glucose, UA Negative Bilirubin, UA Negative Ketones, UA Negative Spec Grav, UA 1.030 Blood, UA Positive(A) Negative, None Detected Comment:trace-intact pH, UA 5.5 Protein, UA Negative Urobilinogen, UA 0.2 Leukocytes, UA Negative Negative, Rare, Trace Nitrite, UA Negative Negative, None Detected Urine 09/30/2024 3:08 PM EST Colleen Rust MD POINT OF CARE TEST ENTER/EDIT ORDERABLES Final Result * Bacterial Vaginosis Panel (09/25/2024 3:40 PM EST) TRICHOMONAS VAGINALIS DETECTION BY PCR TNP Not Detect [facility] Comment:SPECIMEN CAP NOT ASHKAN SED PROPERLY, NO SPECIMEN AVAILABLE TOTEST. CALLED TO BRIAN 09/26/24 AT 1030 BY VIJAYA. BACTERIAL VAGINOSIS DETECTION BY PCR TNP Negative [facility] KELLY GROUP DETECTION BY PCR TNP Not Detect [facility] Kelly glab krusei PCR TNP Not Detect [facility] Swab Vaginal structure / Unknown 09/25/2024 3:40 PM EST 09/25/2024 5:45 PM EST Summer [facility] LAB MICROBIOLOGY - GENERAL ORDER LAURA Final Result [facility] [address] [place] [phone] * Vitamin D, 25-Hydroxy, Total, Immunoassay (07/22/2024 10:05 AM EST) Vitamin D 25-OH Total 30.8 >30 ng/mL [facility] Comment:Health Based Referen ce Values*< 20 ng/mL Eaqqzassg28-53 ng/mL Insufficient> 30 ng/mL Sufficient*Glenis SANCHES. N [...] ORDERABLES Final R esult Performing Organization Address City/[facility]/ZIP Co de Phone Number [facility] [address] [place] [phone] * Vitamin B12 (Cobalamin) and Folate Panel, Serum (07/22/2024 10:05 AM EST) Vitamin B12 234 200 - 900 pg/mL [facility] Comment:NORMAL 200-900 PG/M L INDETERMINATE 160-199 PG/ML DEFICIENT < 160 PG/ML Folate 10.4 > or = 4.0 ng/mL [facility] Comment:Reference Values:> o r = 4.0 ng/mL< 4.0 ng/mL suggests folate deficiency Methotrexate, aminopterin and folinic acid(leucovorin) are chemotherapeutic agents whose molecularstructures are similar to folate; therefore, the Architectfolate assay cannot be used for patients using these drugs. Blood 07/22/2024 10:0 5 AM EST 07/22/2024 11:44 AM EST Lindsey Gramajo DO LAB BLOOD ORDERABLES Final R esult Performing Organization Address [facility] Co de Phone Number [facility] [address] [place] [phone] * Albumin, Random Urine W/Creatinine (07/22/2024 10:05 AM EST) Creatinine, Urine 309.91 mg/dL [facility] Microalbumin Urine 29.0 mg/L [facility] Microalbum Creatinine Ratio Ur 9.3 <30 ug/mg cr [facility] Comment:Albumin/Creatinine R atio Reference Ranges: Normal: < 30 ug/mg creatinine Microalbuminuria: 30 - 300 ug/mg creatinineClinical Albuminuria: > 300 ug/mg creatinine Urine (Urine, Random) 07/22/2024 10:05 AM EST 07/22/2024 11:28 AM EST Lindsey Gramajo DO LAB URINE ORDERABLES Final R esult [facility] [address] [place] [phone] * (ABNORMAL) CBC auto differential (07/22/2024 10:05 AM EST) White Blood Count 8.8 4.8 - 10.8 X10*3/uL [facility] Red Blood Count 4.46 4.20 - 5.50 X10*6/uL [facility] Hemoglobin 11.8(L) 12.0 - 16.0 g/dl [facility] Hematocrit 36.3(L) 37.0 - 47.0 % [facility] Mean Corpuscular Volume 81.4 80.0 - 98.0 fL [facility] Mean Corpuscular Hemoglobin 26.5(L) 27.0 - 33.0 pg [facility] Mean Corpuscular HGB Conc 32.5 31.0 - 35.0 g/dl [facility] Red Cell Distribution Width 13.2 11.0 - 16.0 % [facility] Platelet Count 331 160 - 400 X10*3/uL [facility] Mean Platelet Volume 9.9 9.4 - 12.3 fL [facility] Neutrophils Percent Auto 61.9 45 - 73 % [facility] Imm Gran Pct Auto 0.2 0.0 - 0.4 % [facility] Lymphocytes Percent Auto 27.3 20 - 40 % [facility] Monocytes Percent Auto 6.3 2 - 11 % [facility] Eosinophils Percent Auto 3.3 0 - 4 % [facility] Basophils Percent Auto 1.0 0 - 2 % [facility] NRBC Pct Auto 0.0 0.0 - 0.2 /100WBC [facility] Neutrophils Absolute Auto 5.4 2.0 - 8.3 x10*3/uL [facility] Imm Gran Abs Auto 0.02 0.00 - 0.03 X10*3/uL [facility] Lymphocytes Absolute Auto 2.4 1.2 - 4.9 X10*3/uL [facility] Monocytes Absolute Auto 0.6 0.1 - 1.2 X10*3/uL [facility] Eosinophils Absolute Auto 0.3 0.0 - 0.4 X10*3/uL [facility] Basophils Absolute Auto 0.1 0.0 - 0.2 X10*3/uL [facility] NRBC Abs Auto 0.000 0.0 - 0.012 X10*3/uL [facility] Blood Venous blood specimen / Unknown 07/22/2024 10:05 AM EST 07/22/2024 11:44 AM EST Lindsey Gramajo DO LAB BLOOD ORDERABLES Final R Mamina Shkola Performing Organization Address City/[facility]/ZIP Co de Phone Number [facility] [address] [place] [phone] * Hepatitis C Antibody with Reflex to HCV, RNA, Quantitative, Real-Time PCR (07/22/2024 10:05 AM EST) Hepatitis C Antibody Nonreactive Nonreactive [facility] Comment:Antibodies to HCV no t detected; does not exclude early acuteHCV infection. Blood Venous blood specimen / Unknown 07/22/2024 10:05 AM EST 07/22/2024 11:44 AM EST Lindsey Gramajo DO LAB BLOOD ORDERABLES Final R esult Performing Organization Address City/[facility]/ZIP Co de Phone Number [facility] [address] [place] [phone] * Iron And Total Iron Binding Capacity (07/22/2024 10:05 AM EST) Pathologist [facility] Iron 53 30 - 160 mcg/dL [facility] Total Iron Binding Capacity 324 228 - 428 mcg/dL [facility] Percent Iron Saturation 16 15 - 50 % [facility] Unsaturated Iron Binding 271 ug/dL [facility] Blood Venous blood specimen / Unknown 07/22/2024 10:05 AM EST 07/22/2024 11:44 AM EST Lindsey Gramajo DO LAB BLOOD ORDERABLES Final R esult Performing Organization Address City/[facility]/ZIP Co de Phone Number [facility] [address] [place] [phone] * Hepatitis A Antibody, Total (07/22/2024 10:05 AM EST) Pathologist [facility] Hepatitis A Antibody IgG Nonreactive Nonreactive [facility] Blood Venous blood specimen / Unknown 07/22/2024 10:05 AM EST 07/22/2024 11:44 AM EST Lindsey Gramajo DO LAB BLOOD ORDERABLES Final R esult Performing Organization Address City/[facility] Co de Phone Number [facility] [address] [place] [phone] * Alpha-Fetoprotein, Tumor Marker (07/22/2024 10:05 AM EST) Pathologist [facility] Alpha Fetoprotein 1.2 ng/mL [facility] Comment:Reference Range: <6. 1The use of AFP as a tumor marker in females is not recommended.This test was performed using the Arturo Coulterchemiluminescent method. Values obtained fromdifferent assay methods cannot be usedinterchangeably. AFP levels, regardless ofvalue, should not be interpreted as absoluteevidence of the presence or absence of disease.THIS TEST WAS PERFORMED AT:[id number] [place] [id number] SNEED MD Blood Venous blood specimen / Unknown 07/22/2024 10:05 AM EST 07/22/2024 11:44 AM EST Lindsey Avila DO LAB BLOOD ORDERABLES Final R esult [facility] [address] [place] [phone] [phone] * Chlamydia/N. Gonorrhoeae RNA, TMA, Urogenitial (07/22/2024 10:05 AM EST) CT PCR NOT DETECTED Not Detect. [facility] Comment:A not detected test result [...] psychologicalconsequences. NG PCR NOT DETECTED Not Detect. [facility] Comment:A not detected test result [...] AM EST 07/22/2024 11:28 AM EST Narrative [facility] - 07/22/2024 4:12 PM EST Urine us Lindsey Gramajo DO LAB MICROBIOLOGY - GENERAL O RDERABLES Final Result Performing Organization Address [facility]/ZIP Co de Phone Number [facility] [address] [place] [phone] * Hepatitis B surface antigen, EIA (07/22/2024 10:05 AM EST) Hepatitis B Surface Ag Negative Negative [facility] Blood Venous blood specimen / Unknown 07/22/2024 10:05 AM EST 07/22/2024 11:44 AM EST us Lindsey Gramajo DO LAB BLOOD ORDERABLES Final R esult Performing Organization Address [facility] Co de Phone Number [facility] [address] [place] [phone] * Hepatitis B Core Antibody, Total (07/22/2024 10:05 AM EST) Hepatitis B Core Antibody Nonreactive Nonreactive [facility] Blood Venous blood specimen / Unknown 07/22/2024 10:05 AM EST 07/22/2024 11:44 AM EST us Lindsey Avila DO LAB BLOOD ORDERABLES Final R esult Performing Organization Address [facility] Co de Phone Number [facility] [address] [place] [phone] * RPR (Monitor) with Reflex to??Titer (07/22/2024 10:05 AM EST) RPR (Monitor) w/Refl Titer NON-REACTI VE NON-REACT DARY [facility] Comment:THIS TEST WAS PERFOR MED AT:[id number] [place] [id number] SNEED MD Rapid Plasma Reagin Ab Titer TNP [facility] Blood Venous blood specimen / Unknown 07/22/2024 10:05 AM EST 07/22/2024 11:44 AM EST Lindsey Gramajo LAB BLOOD ORDERABLES Final R esult Performing Organization Address City/[facility]/ZIP Co de Phone Number [facility] [address] [place] [phone] * HIV-1/2 Antigen and Antibodies, Fourth Generation, with Reflexes (07/22/2024 10:05 AM EST) HIV AB/AG Nonreactive Nonreactive [facility] Comment:HIV-1 p24 Ag and/or HIV-1/HIV-2 Ab not detected.A test result that is nonreactive does not exclude thepossibility of exposure to or infection with HIV-1 and/orHIV-2. Nonreactive results in this assay for individualswith prior exposure to HIV-1 and/or HIV-2 may be due toantigen and antibody levels that are below the limit ofdetection of this assay.The [employer] HIV Ag/Ab Combo assay result andsupplemental assay results should be interpreted inconjunction with the patient's clinical presentation,history and other laboratory results. If the results areinconsistent with clinical evidence, additional testing issuggested to confirm the result. Blood Venous blood specimen / Unknown 07/22/2024 10:05 AM EST 07/22/2024 11:44 AM EST us Lindsey Gramajo DO LAB BLOOD ORDERABLES Final R esult Performing Organization Address City/[facility]/ZIP Co de Phone Number [facility] [address] [place] [phone] * Hepatitis B Surface Antibody, Qualitative (07/22/2024 10:05 AM EST) Pathologist [facility] ~Hepatitis B Surface Antibody REACTIVE Nonreactive [facility] Comment:REACTIVE: > 11.99 mI U/mL Blood Venous blood specimen / Unknown 07/22/2024 10:05 AM EST 07/22/2024 11:44 AM EST Lindsey Gramajo DO LAB BLOOD ORDERABLES Final R esult Performing Organization Address City/[facility]/ZIP Co de Phone Number [facility] [address] [place] [phone] * TSH (07/22/2024 10:05 AM EST) [facility] Thyroid Stimulating Hormone 2.12 0.32 - 4.0 uIU/mL [facility] Comment:TSH 3rd Generation ( [facility]) Blood Venous blood specimen / Unknown 07/22/2024 10:05 AM EST 07/22/2024 11:44 AM EST Lindsey Gramajo DO LAB BLOOD ORDERABLES Final R esult Performing Organization Address [facility] Co de Phone Number [facility] [address] [place] [phone] * T4, Free (07/22/2024 10:05 AM EST) [facility] Free T4 (Free Thyroxine) 0.78 0.71 - 1.85 ng/dL [facility] Blood Venous blood specimen / Unknown 07/22/2024 10:05 AM EST 07/22/2024 11:44 AM EST Lindsey Gramajo DO LAB BLOOD ORDERABLES Final R esult Performing Organization Address [facility] Co de Phone Number [facility] [address] [place] [phone] * (ABNORMAL) Hemoglobin A1c (07/22/2024 10:05 AM EST) Hemoglobin A1c 6.2(H) <6.0 % [facility] Comment:Hemoglobin A1C Refer ence Range Adults: 4.8 - 6.0 % Non diabetic: < 6.0 % Goal: < 7.0 %Additional Action Suggested: > 8.0 %Note: Hemoglobin A1c results are invalid for patients with abnormal amounts of HbF. Blood transfusions may impact the HbA1c concentration in the patient sample. Estimated Average Glucose 131 mg/dL [facility] Comment:eAG = Estimated ave rage glucose which is %A1C expressed asaverage glucose, using the formula of the [id number] Glucose study (ADAG), Diabetes Care, Vol.31,#8,2007 Blood Venous blood specimen / Unknown 07/22/2024 10:05 AM EST 07/22/2024 11:44 AM EST Lindsey Gramajo DO LAB BLOOD ORDERABLES Final R esult Performing Organization Address City/[facility]/ZIP Co de Phone Number [facility] [address] [place] [phone] * Ferritin (07/22/2024 10:05 AM EST) Ferritin 35 10 - 122 ng/mL [facility] Blood Venous blood specimen / Unknown 07/22/2024 10:05 AM EST 07/22/2024 11:44 AM EST Lindsey Gramajo DO LAB BLOOD ORDERABLES Final R esult Performing Organization Address [facility] Co de Phone Number [facility] [address] [place] [phone] * Hepatic Function Panel (07/22/2024 10:05 AM EST) Bilirubin, Total 0.3 0.0 - 1.0 mg/dL [facility] Bilirubin, Direct 0.1 0.0 - 0.5 mg/dL [facility] Aspartate Amino Transferase 22 5 - 31 U/L [facility] Alanine Aminotransferase 15 0 - 31 U/L [facility] Total Protein 7.4 6.5 - 8.0 g/dL [facility] Albumin Level 4.0 3.5 - 5.0 g/dL [facility] Alkaline Phosphatase 65 39 - 117 U/L [facility] Blood Venous blood specimen / Unknown 07/22/2024 10:05 AM EST 07/22/2024 11:44 AM EST us Lindsey Gramajo DO LAB BLOOD ORDERABLES Final R esult Performing Organization Address City/[facility] Co de Phone Number [facility] [address] [place] [address] [phone] * Lipid Panel, Standard (07/22/2024 10:05 AM EST) Triglycerides 85 <150 mg/dL [facility] Comment:Desirable Triglyceri de: less than 150 mg/dLBorderline High Triglyceride 150-199 mg/dLHigh Triglyceride: 200-499 mg/dLVery High Triglyceride: greater than or equal to 5OO mg/dL Cholesterol 146 <200 mg/dL [facility] Comment:Desirable Cholestero l: less than 200 mg/dLBorderline High Cholesterol: 200-239 mg/dLHigh Cholesterol: greater than 239 mg/dL LDL Cholesterol Calculated 82 <100 mg/dL [facility] Comment:Desirable LDL: less than 100 mg/dLNear Optimal/Above Optimal LDL: 110- 129 mg/dLBorderline High LDL: 130-159 mg/dLHigh LDL: 160-189 mg/dLVery High LDL: greater than or equal to 190 mg/dL HDL Cholesterol 47 >40 mg/dL [facility] Comment:Desirable HDL: great er than 40 mg/dL Note: This HDL assay may give artificially low results in patients with liver disease. Blood Venous blood specimen / Unknown 07/22/2024 10:05 AM EST 07/22/2024 11:44 AM EST us Lindsey Gramajo DO LAB BLOOD ORDERABLES Final R esult [facility] [address] [place] [phone] * (ABNORMAL) Basic Metabolic Panel (07/22/2024 10:05 AM EST) Sodium 136 135 - 145 mmol/L [facility] Potassium 3.4 3.3 - 5.1 mmol/L [facility] Chloride 103 96 - 108 mmol/L [facility] Carbon Dioxide 25 22 - 29 mmol/L [facility] Anion Gap 11(L) 12 - 20 [facility] Urea Nitrogen (BUN) 11 9 - 16 mg/dL [facility] Creatinine, Serum 0.69 0.5 - 1.4 mg/dL [facility] Estimated Glomerular Filt Rate >60 [facility] Comment:Chronic Kidney Disea se: Estimated GFR < 60 mL/min/1.98l5Kefamj Kidney Disease: Estimated GFR < 15 mL/min/1.73m2 Glucose 89 60 - 115 mg/dL [facility] Calcium 9.1 8.4 - 10.2 mg/dL [facility] Blood Venous blood specimen / Unknown 07/22/2024 10:05 AM EST 07/22/2024 11:44 AM EST us Lindsey Gramajo DO LAB BLOOD ORDERABLES Final R esult [facility] [address] [place] [phone] from Last 3 Months [facility] * Guarantor: Nuria Dwyer Account Type Relation to Patient Date of Phone Billing Address Personal/Family Self [address] [place] Care Teams [employer] Relationship Specialty Start Date End Date Lindsey Gramajo DO [address] [place] [phone] PCP - General Family Medicine 05/22/24
[2024-10-01 02:11] LABS: CT PCR NOT DETECTED (Not Detect.); NG PCR NOT DETECTED (Not Detect.)
[2024-10-01 08:49] LABS: Bacterial Vaginosis PCR POSITIVE (Negative); Candida Group PCR DETECTED (Not Detect); Candida glab krusei PCR NOT DETECTED (Not Detect); Trichomonas vaginalis PCR NOT DETECTED (Not Detect)
== END 2024-09-30 10:24 | disposition home or self-care (01) ==
LOC: HO.HHCLNP 10:23
PROVIDERS: Internal Medicine; PCP Family Medicine; Visit Provider Physician Assistant Surgical
DX: Z20.2 Contact with and (suspected) exposure to infections with a predominantly sexual mode of transmission (principal); Z98.84 Bariatric surgery status; E66.9 Obesity, unspecified
CPT/HCPCS: 81515; 87491; 87591; 99212

== ENCOUNTER 2024-09-30 10:23 | Outpatient (AMB) | payer MEDICAID, SELFPAY ==
--- NOTE | 2024-09-30 10:25 | MHC.OFFVISWM ---
VS Expanded 09/30/24 10:33 BP 128/80 Blood Pressure Location Rt brachial Blood Pressure Position Sitting Pulse 85 Pulse Source Pulse Oximeter Temp 97.3 F Temperature Source Temporal Artery Scan Pulse Oximetry 100 Oxygen Delivery Method Room Air Height 5 ft 5 in Weight 206 lb 6.4 oz BMI 34.3 Body Fat % 42.7 Body Fat Mass 88.2 Fat Free Mass 118.2 Visceral Fat Rating 9.0 Body Water % 41.0 Body Water Mass 84.6 Muscle Mass/Score 112.2 Basal Metabolic Rate/Score 1,667 Intake Visit Reasons: (OV) PO LSG 04/15/19 Allergies doxycycline [DOXYCYCLINE] Allergy (Intermediate, Verified 09/30/24 10:30) RASH/HIVES ?penicillin Allergy (Unknown, Uncoded 06/27/22 13:22) Unknown Medication List - Last Reconciled 09/30/24 by BRENT Whittington acetaminophen (Tylenol Extra Strength) 500 mg PO Q6H PRN cholecalciferol (vitamin D3) 25 mcg PO DAILY cyclobenzaprine 10 mg PO TID PRN duloxetine (Cymbalta) 20 mg PO DAILY hydrochlorothiazide 25 mg PO DAILY ibuprofen 600 mg PO Q6H PRN lisinopril 10 mg PO DAILY pantoprazole 40 mg PO DAILY ramelteon 8 mg PO BEDTIME HPI Comments Details: This?is a?33?yo female who is s/p LSG 04/15/2019. Presents for 5.5 year post op visit. Weight at last visit on 07/24/2023 was 197.8 pounds with a BMI of 32.9, weight today is 206.4 pounds, representing an 8.6 pound weight gain with a BMI today of 35.4.? Pt continues to have abdominal pain. Goes away for a little bit, but comes back. Feels like squeezing as soon as food goes down, particularly meats. Everything I eat I feel it going down. Occasional vomiting, almost every day. Feels nausea. Happens with some liquids like soda or coffee. When asked to point to where the pain is, she indicates epigastrium. Rare ibuprofen use, not daily. Drinks coffee in AM on an empty stomach. Just bought some in[employer] shakes. Notes that she has gained weight, had increasing BP and BS. Has hx of CCY. Present meal plan includes: no meal plan Exercise routine includes: nothing formal, her job is less physically active as well [facility] Medical History (Updated 09/30/24 @ 10:53 by BRENT Whittington) PCOS (polycystic ovarian syndrome) Intestinal malabsorption following gastrectomy Overweight (BMI 25.0-29.9) Surgical History Hx of breast augmentation S/P laparoscopic sleeve gastrectomy History of sleeve gastrectomy Hx of carpal tunnel repair Hx of cholecystectomy Family History Father No problems noted. Mother High cholesterol Diabetes mellitus CVD (cardiovascular disease) Arthritis Brother Overdose Brother No problems noted. Sister No problems noted. Daughter No problems noted. 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 Proctor Code(s): Z98.84 - Bariatric surgery status Category: Surgical Plan Gave pt access to [place] [employer] to create a new meal plan. Encouraged pt to follow plan exactly. Stop soda and don't drink coffee on an empty stomach. Start PPI. Discussed risks of ibuprofen use. Labs ordered. Will order UGI. RTC once complete. I spent a total of 30 minutes reviewing/updating records, examining the patient and counseling the patient on weight management as detailed above. Orders: Orders Hemoglobin A1c Today Z98.84 - Bariatric surgery status Lipid Panel Today Z98.84 - Bariatric surgery status Vitamin B1 Today Z98.84 - Bariatric surgery status FL upper GI w air Today R10.9 - Unspecified abdominal pain Insulin Today Z98.84 - Bariatric surgery status Complete Blood Count Auto Diff Today Z98.84 - Bariatric surgery status IRON PROFILE Today Z98.84 - Bariatric surgery status Comprehensive Met. Panel Today Z98.84 - Bariatric surgery status Vitamin B12 and Folate Today Z98.84 - Bariatric surgery status Zinc Today Z98.84 - Bariatric surgery status C Reactive Protein Today Z98.84 - Bariatric surgery status Vitamin A Today Z98.84 - Bariatric surgery status TSH reflex Free T4 Today Z98.84 - Bariatric surgery status Ferritin Today Z98.84 - Bariatric surgery status Vitamin D 25-OH Total Today Z98.84 - Bariatric surgery status Medications: New pantoprazole 40 mg PO DAILY 90 tabs 3RF
[2024-09-30 10:33] VITALS: BP 128/80; PULSE 85; TEMP 36.3; O2SAT 100; BMI 34.3
--- OUTSIDE RECORDS SUMMARY | 2024-09-30 11:11 | XMS_ITS | Encounter Summary ---
Author Organization [employer] Address [address] [facility] [facility] [address] [place] [address] Care Team Providers Care Abstract Writer Name Role Phone Avila Lindsey Primary Care Provider [phone] Encounter Details Date Type Department Care Team (Late st Contact Info) Description 09/29/2024 Telephone [facility] [address] [place], [place] [phone] Summer Aguilar ANP [address] [place] [address] Social History Tobacco Use Types Packs/Day Years [...] 10/30/2024 1:45 PM EST Office Visit [facility] [address] [place], [place] [phone] Josephine Lawson, OD [address] [place] [address] documented as of this encounter Visit Diagnoses Not on filedocumented in this encounter Additional Health Concerns Assessment Noted Time PHQ-9 Depression Total Score: 14 024 3:31 PM EST documented as of this encounter Care Teams Abstract Writer Relationship Specialty Start Date End Date Lindsey Gramajo DO [address] [place] [address] PCP - General Family Medicine 05/22/24 documented as of this encounter
--- OUTSIDE RECORDS SUMMARY | 2024-09-30 11:11 | XMS_ITS | Encounter Summary ---
Author Organization [employer] Address [address] [facility] 7t [place] [address] Care Team Providers Care Upper Leather Sorter Name Role Phone Lindsey Gramajo DO Primary Care Provider + [phone] Reason for Visit * Reason Onset Date Comments Lab Orders 09/26/2024 Encounter Details Date Type Department Care Team ([facility] st Contact Info) Description 09/26/2024 Telephone [facility] [address] [place] [address] Trisha Coulter RN [address] [place] [address] Lab Orders Social History Tobacco Use Types Packs/Day Years [...] encounter Miscellaneous Notes * Telephone Encounter - ALFREDO Oliva - 09/26/2024 11:16 AM EST Have ordered new swab and asked team to msg pt * Telephone Encounter - Trisha Coulter RN - 09/26/2024 10:37 AM EST Received call from [facility] lab. BV Panel specimen is being rejected because the specimen cap was not closed tightly and the liquid in the tube spilled out. Patient will need to submit new specimen. Message sent to ordering provider ELMER Oliva and [place]. MULLIG[place] to contact patient for recollect. documented in this encounter Plan of Treatment Upcoming Encounters Date Type Department Care Team (Late st Contact Info) Description 10/30/2024 1:45 PM EST Office Visit [facility] [address] [place] [address] Josephine Lawson, OD [address] [place] [address] documented as of this encounter Visit Diagnoses Not on filedocumented in this encounter Additional Health Concerns Assessment Noted Time PHQ-9 Depression Total Score: 14 024 3:31 PM EST documented as of this encounter Care Teams Upper Leather Sorter Relationship Specialty Start Date End Date Lindsey Gramajo DO [address] [place] [address] PCP - General Family Medicine 05/22/24 documented as of this encounter
--- OUTSIDE RECORDS SUMMARY | 2024-09-30 11:11 | XMS_ITS | Encounter Summary ---
Author Organization [employer] Address [address] [facility] [address]t [place] [address] Care Team Providers Care Impregnator And Drier Name Role Phone Lindsey Gramajo DO Primary Care Provider [phone] Reason for Visit * Reason Onset Date Comments Lab Orders 09/26/2024 [facility] BV Panel specimen is being rejected because the specimen cap was not closed tightly and the liquid in the tube spilled out. Patient will need to submit new specimen. Message sent to ordering provider ELMER Oliva and [place]. M[place]IG[place] to contact patient for recollect. Encounter Details Date Type Department Care Team (Late st Contact Info) Description 09/26/2024 Telephone [facility] [address] [place] [address] Maira Fontanez [place] Lab Orders ([place] [facility] [place]. BV Panel specimen is being rejected because the specimen cap was not closed tightly and the liquid in the tube spilled out. Patient will need to submit new specimen. Message sent to ordering provider ELMER Oliva and [place]. M[place]IG[place] to contact patient for recollect. //) Social History Tobacco Use Types Packs/Day Years [...] encounter Miscellaneous Notes * Telephone Encounter - Maira Fontanez MA - 09/26/2024 10:46 AM EST Received call from [facility] [place]. BV Panel specimen is being rejected because the specimen cap was not closed tightly and the liquid in the tube spilled out. Patient will need to submit new specimen. Message sent to ordering provider ELMER Oliva and [place]. [place] to contact patient for recollect. documented in this encounter Plan of Treatment Upcoming Encounters Date Type Department Care Team ([facility] st Contact Info) Description 10/30/2024 1:45 PM EST Office Visit [facility] [address] [place] [address] Josephine Lawson, OD [address] [place] [address] documented as of this encounter Visit Diagnoses Not on filedocumented in this encounter Additional Health Concerns Assessment Noted Time PHQ-9 Depression Total Score: 14 024 3:31 PM EST documented as of this encounter Care Teams Impregnator And Drier Relationship Specialty Start Date End Date Lindsey Gramajo DO [address] [place] [address] PCP - General Family Medicine 05/22/24 documented as of this encounter
--- OUTSIDE RECORDS SUMMARY | 2024-09-30 11:11 | XMS_ITS | Clinical Summary ---
Author Organization [facility] Address [address] [place] [address] Care Team Providers Care Speech Clinician Name Role Phone Pcp, No Primary Care [...] this topic Medical Devices Implanted Type Area Pricing/Signage Team Member Device Identifier Shelf Expiration Date Model / Serial / Lot Natrelle Inspira Cohesive Breast Implant Implanted:Qty: 1 on 11/05/2020 by Carlos Cerda MD at [facility] Breast Right: Breast [employer] 11/05/2024 [id number] / [id number] / Natrelle Inspira Cohesive Breast Implant Implanted:Qty: 1 on 11/05/2020 by Carlos Cerda MD at [facility] Breast Left: Breast [employer] 05/22/2025 [id number] / [id number] / Urogyn [employer]rogyn Care Teams Speech Clinician Relationship Specialty Start Date End Date Pcp, No PCP - General General Medicine 10/22/20
--- OUTSIDE RECORDS SUMMARY | 2024-09-30 11:11 | XMS_ITS | Encounter Summary ---
Author Organization [employer] Address [address] [place] [address] [address]t [place] [address] Care Team Providers Care Service Center Technician Name Role Phone Lindsey Gramajo DO Primary Care Provider [phone] Reason for Referral * Consultation (Routine) - Authorized Specialty Diagnoses / Procedures Referred By Contac t Referred To Contact Gastroenterology Diagnoses Mucus in stool Summer Aguilar ANP [address] [place] [address] Phone: tel: fax: [facility] Referral ID Status Reason Start Date Expiration Date Visits Requested Visits Authorized [id number] Authorized Specialty Services Required 09/29/2024 09/29/2025 6 6 * Consultation (Routine) - Authorized Specialty Diagnoses / Procedures Referred By Contnat t Referred To Contact Allergy Diagnoses Non-seasonal allergic rhinitis, unspecified trigger Summer Aguilar ANP [address] [place] [address] Phone: tel: fax: Nick Wellington MD [address] [place] [address] Drive [address] [place] [address] Phone: tel: fax: Referral ID Status Reason Start Date Expiration Date Visits Requested Visits Authorized [id number] Authorized Specialty Services Required 09/29/2024 09/29/2025 12 12 Reason for Visit * Reason Comments sick on site Encounter Details Date Type Department Care Team (Late st Contact Info) Description 09/25/2024 2:30 PM EST Office Visit [facility] [address] [place] [address] Summer Aguilar ANP [address] [place] [address] Subacute cough (Primary Dx); SOB (shortness of [...] well daily as needed. Will refer to performance improvement specialist. For your cough: Take famotidine 20 mg [...] well daily as needed. Will refer to performance improvement specialist. For your cough: Take famotidine 20 mg [...] 1:45 PM EST Office Visit [facility] [address] [place], [place] [phone] Josephine Lawson, OD [address] [place] [address] Scheduled Referrals Name Type Priority Associated Diagnoses Order Schedule Referral to Allergy Outpatient Referral Routine Non-seasonal allergic rhinitis, unspecified trigger Expected: 09/25/2024 (Approximate), Expires: 09/25/2025 Referral to Gastroenterology Outpatient Referral Routine Mucus in stool Expected: 09/25/2024 (Approximate), Expires: 09/25/2025 documented as of this encounter Procedures Procedure Name Priority Date/Time Associated Diagnosis Comments BACTERIAL VAGINOSIS PANEL Routine 09/25/2024 3:40 PM EST Vaginal discharge documented in this encounter Results * Bacterial Vaginosis Panel (09/25/2024 3:40 PM EST) TRICHOMONAS VAGINALIS DETECTION BY PCR TNP Not Detect [facility] Comment:SPECIMEN CAP NOT ASHKAN SED PROPERLY, NO SPECIMEN AVAILABLE TOTEST. CALLED TO BRIAN 09/26/24 AT 1030 BY VIJAYA. BACTERIAL VAGINOSIS DETECTION BY PCR TNP Negative [facility] KELLY GROUP DETECTION BY PCR TNP Not Detect [facility] Kelly glab krusei PCR TNP Not Detect [facility] Swab Vaginal structure / Unknown 09/25/2024 3:40 PM EST 09/25/2024 5:45 PM EST [facility] MICROBIOLOGY - GENERAL ORDER LAURA Final Result [facility] [address] [place] [address] [phone] documented in this encounter Visit Diagnoses Diagnosis Subacute cough- [...] Noted Time PHQ-9 Depression Total Score: 14 11/2 024 3:31 PM EST documented as of this encounter Care Teams Service Center Technician Relationship Specialty Start Date End Date Lindsey Gramajo DO [address] [place] [address] PCP - General Family Medicine 05/22/24 documented as of this encounter
--- OUTSIDE RECORDS SUMMARY | 2024-09-30 11:11 | XMS_ITS | Encounter Summary ---
Author Organization [employer] Address [address] [facility] [address] [place] [address] Care Team Providers Care Supervisor Cigarette Making Department Name Role Phone RulaLindsey alberts Primary Care Provider [phone] Encounter Details Date Type Department Care Team [...] 1:45 PM EST Office Visit [facility] [address] [place], [place] [phone] Josephine Lawson, OD [address] [place] [address] documented as of this encounter Visit Diagnoses Not on filedocumented in this encounter Additional Health Concerns Assessment Noted Time PHQ-9 Depression Total Score: 14 024 3:31 PM EST documented as of this encounter Care Teams Supervisor Cigarette Making Department Relationship Specialty Start Date End Date Lindsey Gramajo DO [address] [place] [address] PCP - General Family Medicine 05/22/24 documented as of this encounter
--- OUTSIDE RECORDS SUMMARY | 2024-09-30 11:11 | XMS_ITS | Clinical Summary ---
Author Organization [employer] Address [address] [place] [address] Care Team Providers Care Geriatric Assistant Name Role Phone Anupama Gramajofer Primary Care Provider [phone] Allergies Active Allergy Reactions Criticality Noted Date [...] 4 Active Blood Glucose Monitoring Suppl (FreeStyle [place] Lite) w/Device kit Use to test blood [...] intervention , Patient to [facility] as needed, Patient to engage in [...] intervention , Patient to reach out to [facility] team as needed, Patient to engage in [...] suggesting possible ischemia (report of EKG from [facility] 11/29/23 normal) and exam with tachycardia [...] Encounters Date Type Department Care Team Description 09/29/2024 Telephone [facility] [address] [place] [phone] Summer Aguilar ANP 09/26/2024 Orders Only [facility] [address] [place] [address] Summer Aguilar ANP Vaginal discharge (Primary Dx) 09/26/2024 Telephone [facility] [address] [place] [address] Maira Fontanez [place] Lab Orders (Received call from [facility] lab. BV Panel specimen is being rejected because the specimen cap was not closed tightly and the liquid in the tube spilled out. Patient will need to submit new specimen. Message sent to ordering provider ELMER Oliva and [place]. MULLIGAN to contact patient for recollect. //) 09/26/[address] [address] Trisha Coulter, chick grader Orders 09/25/2024 2:30 PM EST Office Visit [address] [address] Summer Aguilar ANP Subacute cough (Primary Dx); SOB (shortness of breath); Mucus in stool; Generalized pruritus; Vaginal discharge; Essential hypertension; Non-seasonal allergic rhinitis, unspecified trigger; Family history of Crohn's disease 09/25/2024 Travel 09/25/[address] [address] Lindsey Gramajo DO Nurse Triage 07/28/[address] [address] Radha Fernandez RN 07/25/[address] [address] Cintia Payne MD 07/23/[address] [address] Lindsey Gramajo DO 07/23/[address] [address] Lindsey Gramajo DO Med Refill 07/21/[address] [address] Lindsey Gramajo DO Nurse Triage 07/08/2024 10:45 AM EST Office Visit [address] [address] Lindsey Gramajo DO Routine history and physical examination of adult (Primary Dx); New onset type 2 diabetes mellitus (CMS/HCC); Essential hypertension; Anxiety; Chronic allergic rhinitis; Epigastric pain; Candidal intertrigo; Keratosis pilaris; BMI 37.0-37.9, adult; Encounter for immunization 07/08/2024 Travel 06/30/2024 Patient Outreach [address] [address] Lindsey Gramajo DO Pre-visit Planning (SDOH screening [...] Description 10/30/2024 1:45 PM EST Office Visit [facility] [address] [place] [address] Josephine Lawson, OD [address] [place] [address] Health Maintenance Due Date Last Done Comments [...] 03/07/2025 03/07/2024 Depression Screening 07/08/2025 07/08/2024, 07/08/20 Diabetes: Urine Protein Screening 07/22/2025 07/22/2024 Lipid [...] Routine 09/25/2024 3:40 PM EST Vaginal discharge CBC WITH AUTO DIFFERENTIAL Routine 07/22/2024 10:05 [...] immunization from Last 3 Months Results * Bacterial Vaginosis Panel (09/25/2024 3:40 PM EST) TRICHOMONAS VAGINALIS DETECTION BY PCR TNP Not Detect [facility] Comment:SPECIMEN CAP NOT ASHKAN SED PROPERLY, NO SPECIMEN AVAILABLE TOTEST. CALLED TO BRIAN 09/26/24 AT 1030 BY VIJAYA. BACTERIAL VAGINOSIS DETECTION BY PCR TNP Negative [facility] KELLY GROUP DETECTION BY PCR TNP Not Detect [facility] Kelly glab krusei PCR TNP Not Detect [facility] Swab Vaginal structure / Unknown 09/25/2024 3:40 PM EST 09/25/2024 5:45 PM EST us Summer FUENTES LAB MICROBIOLOGY - GENERAL ORDER LAURA Final Result Performing Organization Address [facility]/ZIP Co de Phone Number [facility] [address] [place] [phone] * Vitamin D, 25-Hydroxy, Total, Immunoassay (07/22/2024 10:05 AM EST) Vitamin D 25-OH Total 30.8 >30 ng/mL [facility] Comment:Health Based Referen ce Values*< 20 ng/mL Tywmduywp45-90 ng/mL Insufficient> 30 ng/mL Sufficient*Glenis SANCHES. N [...] ORDERABLES Final R esult Performing Organization Address City/[facility]/ZIP Co de Phone Number [facility] [address] [place] [phone] * Vitamin B12 (Cobalamin) and Folate Panel, Serum (07/22/2024 10:05 AM EST) Vitamin B12 234 200 - 900 pg/mL [facility] Comment:NORMAL 200-900 PG/ML INDETERMINATE 160-199 PG/ML DEFICIENT < 160 PG/ML Folate 10.4 > or = 4.0 ng/mL [facility] Comment:Reference Values:> o r = 4.0 ng/mL< 4.0 ng/mL suggests folate deficiency Methotrexate, aminopterin and folinic acid(leucovorin) are chemotherapeutic agents whose molecularstructures are similar to folate; therefore, the Architectfolate assay cannot be used for patients using these drugs. Blood 07/22/2024 10:0 5 AM EST 07/22/2024 11:44 AM EST Lindsey Gramajo LAB BLOOD ORDERABLES Final R esult Performing Organization Address [facility] de Phone Number [facility] [address] [place] [phone] * Albumin, Random Urine W/Creatinine (07/22/2024 10:05 AM EST) Creatinine, Urine 309.91 mg/dL [facility] Microalbumin Urine 29.0 mg/L [facility] Microalbum Creatinine Ratio Ur 9.3 <30 ug/mg cr [facility] Comment:Albumin/Creatinine R atio Reference Ranges: Normal: < 30 ug/mg creatinine Microalbuminuria: 30 - 300 ug/mg creatinineClinical Albuminuria: > 300 ug/mg creatinine Urine (Urine, Random) 07/22/2024 10:05 AM EST 07/22/2024 11:28 AM EST Lindsey Gramajo DO LAB URINE ORDERABLES Final R esult Performing Organization Address [facility] Co de Phone Number [facility] [address] [place] [phone] * (ABNORMAL) CBC auto differential (07/22/2024 10:05 AM EST) White Blood Count 8.8 4.8 - 10.8 X10*3/uL [facility] Red Blood Count 4.46 4.20 - 5.50 X10*6/uL [facility] Hemoglobin 11.8(L) 12.0 - 16.0 g/dl [facility] Hematocrit 36.3(L) 37.0 - 47.0 % [facility] Mean Corpuscular Volume 81.4 80.0 - 98.0 fL [facility] Mean Corpuscular Hemoglobin 26.5(L) 27.0 - 33.0 pg [facility] Mean Corpuscular HGB Conc 32.5 31.0 - 35.0 g/dl [facility] Red Cell Distribution Width 13.2 11.0 - 16.0 % [facility] Platelet Count 331 160 - 400 X10*3/uL [facility] Mean Platelet Volume 9.9 9.4 - 12.3 fL [facility] Neutrophils Percent Auto 61.9 45 - 73 % [facility] Imm Gran Pct Auto 0.2 0.0 - 0.4 % [facility] Lymphocytes Percent Auto 27.3 20 - 40 % [facility] Monocytes Percent Auto 6.3 2 - 11 % [facility] Eosinophils Percent Auto 3.3 0 - 4 % [facility] Basophils Percent Auto 1.0 0 - 2 % [facility] NRBC Pct Auto 0.0 0.0 - 0.2 /100WBC [facility] Neutrophils Absolute Auto 5.4 2.0 - 8.3 x10*3/uL [facility] Imm Gran Abs Auto 0.02 0.00 - 0.03 X10*3/uL [facility] Lymphocytes Absolute Auto 2.4 1.2 - 4.9 X10*3/uL [facility] Monocytes Absolute Auto 0.6 0.1 - 1.2 X10*3/uL [facility] Eosinophils Absolute Auto 0.3 0.0 - 0.4 X10*3/uL [facility] Basophils Absolute Auto 0.1 0.0 - 0.2 X10*3/uL [facility] NRBC Abs Auto 0.000 0.0 - 0.012 X10*3/uL [facility] Blood Venous blood specimen / Unknown 07/22/2024 10:05 AM EST 07/22/2024 11:44 AM EST Lindsey Gramajo DO LAB BLOOD ORDERABLES Final R esult Performing Organization Address City/[facility]/ZIP Co de Phone Number [facility] [address] [place] [phone] * Hepatitis C Antibody with Reflex to HCV, RNA, Quantitative, Real-Time PCR (07/22/2024 10:05 AM EST) Hepatitis C Antibody Nonreactive Nonreactive [facility] Comment:Antibodies to HCV no t detected; does not exclude early acuteHCV infection. Blood Venous blood specimen / Unknown 07/22/2024 10:05 AM EST 07/22/2024 11:44 AM EST Lindsey Gramajo DO LAB BLOOD ORDERABLES Final R esult Performing Organization Address [facility] Co de Phone Number [facility] [address] [place] [phone] * Iron And Total Iron Binding Capacity (07/22/2024 10:05 AM EST) Iron 53 30 - 160 mcg/dL [facility] Total Iron Binding Capacity 324 228 - 428 mcg/dL [facility] Percent Iron Saturation 16 15 - 50 % [facility] Unsaturated Iron Binding 271 ug/dL [facility] Blood Venous blood specimen / Unknown 07/22/2024 10:05 AM EST 07/22/2024 11:44 AM EST Lindsey Avila DO LAB BLOOD ORDERABLES Final R esult Performing Organization Address City/[facility]/ZIP Co de Phone Number [facility] [address] [place] [phone] * Hepatitis A Antibody, Total (07/22/2024 10:05 AM EST) Hepatitis A Antibody IgG Nonreactive Nonreactive [facility] Blood Venous blood specimen / Unknown 07/22/2024 10:05 AM EST 07/22/2024 11:44 AM EST Lindsey Gramajo DO LAB BLOOD ORDERABLES Final R esult Performing Organization Address [facility]/ZIP Co de Phone Number [facility] [address] [place] [phone] [phone] * Alpha-Fetoprotein, Tumor Marker (07/22/2024 10:05 AM EST) [facility] Alpha Fetoprotein 1.2 ng/mL [facility] Comment:Reference Range: <6. 1The use of AFP as a tumor marker in females is not recommended.This test was performed using the Arturo Coulterchemiluminescent method. Values obtained fromdifferent assay methods cannot be usedinterchangeably. AFP levels, regardless ofvalue, should not be interpreted as absoluteevidence of the presence or absence of disease.THIS TEST WAS PERFORMED AT:[facility] [place] [phone] SNEED MD Blood Venous blood specimen / Unknown 07/22/2024 10:05 AM EST 07/22/2024 11:44 AM EST Lindsey Gramajo LAB BLOOD ORDERABLES Final R esult Performing Organization Address [facility] de Phone Number [facility] [address] [place] [phone] [phone] * Chlamydia/N. Gonorrhoeae RNA, TMA, Urogenitial (07/22/2024 10:05 AM EST) [facility] CT PCR NOT DETECTED Not Detect. [facility] Comment:A not detected test result does [...] psychologicalconsequences. NG PCR NOT DETECTED Not Detect. [facility] Comment:A not detected test result does [...] AM EST 07/22/2024 11:28 AM EST Narrative [facility] - 07/22/2024 4:12 PM EST Urine Lindsey Gramajo DO LAB MICROBIOLOGY - GENERAL O RDERABLES Final Result Performing Organization Address [facility]/ZIP Co de Phone Number [facility] [address] [place] [phone] * Hepatitis B surface antigen, EIA (07/22/2024 10:05 AM EST) Hepatitis B Surface Ag Negative Negative [facility] Blood Venous blood specimen / Unknown 07/22/2024 10:05 AM EST 07/22/2024 11:44 AM EST Lindsey Gramajo DO LAB BLOOD ORDERABLES Final R esult Performing Organization Address City/[facility]/ZIP Co de Phone Number [facility] [address] [place] [phone] [phone] * Hepatitis B Core Antibody, Total (07/22/2024 10:05 AM EST) Hepatitis B Core Antibody Nonreactive Nonreactive [facility] Blood Venous blood specimen / Unknown 07/22/2024 10:05 AM EST 07/22/2024 11:44 AM EST Lindsey Avila DO LAB BLOOD ORDERABLES Final R esult Performing Organization Address City/[facility]/ZIP Co de Phone Number [facility] [address] [place] [phone] * RPR (Monitor) with Reflex to??Titer (07/22/2024 10:05 AM EST) Pathologist [facility] RPR (Monitor) w/Refl Titer NON-REACTI VE NON-REACT DARY [facility] Comment:THIS TEST WAS PERFOR MED AT:[facility] [place] [phone] SNEED MD Rapid Plasma Reagin Ab Titer TNP [facility] Blood Venous blood specimen / Unknown 07/22/2024 10:05 AM EST 07/22/2024 11:44 AM EST Lindsey Avila LAB BLOOD ORDERABLES Final R esult Performing Organization Address City/[facility]/ZIP Co de Phone Number [facility] [address] [place] [phone] * HIV-1/2 Antigen and Antibodies, Fourth Generation, with Reflexes (07/22/2024 10:05 AM EST) Pathologist [facility] HIV AB/AG Nonreactive Nonreactive [facility] Comment:HIV-1 p24 Ag and/or HIV-1/HIV-2 Ab not detected.A test result that is nonreactive does not exclude thepossibility of exposure to or infection with HIV-1 and/orHIV-2. Nonreactive results in this assay for individualswith prior exposure to HIV-1 and/or HIV-2 may be due toantigen and antibody levels that are below the limit ofdetection of this assay.The [employer] HIV Ag/Ab Combo assay result andsupplemental assay results should be interpreted inconjunction with the patient's clinical presentation,history and other laboratory results. If the results areinconsistent with clinical evidence, additional testing issuggested to confirm the result. Blood Venous blood specimen / Unknown 07/22/2024 10:05 AM EST 07/22/2024 11:44 AM EST Lindsey Gramajo DO LAB BLOOD ORDERABLES Final R esult Performing Organization Address [facility]/ZIP Co de Phone Number [facility] [address] [place] [phone] * Hepatitis B Surface Antibody, Qualitative (07/22/2024 10:05 AM EST) ~Hepatitis B Surface Antibody REACTIVE Nonreactive [facility] Comment:REACTIVE: > 11.99 mI U/mL Blood Venous blood specimen / Unknown 07/22/2024 10:05 AM EST 07/22/2024 11:44 AM EST Lindsey Gramajo DO LAB BLOOD ORDERABLES Final R esult Performing Organization Address [facility] Co de Phone Number [facility] [address] [place] [phone] * TSH (07/22/2024 10:05 AM EST) Thyroid Stimulating Hormone 2.12 0.32 - 4.0 uIU/mL [facility] Comment:TSH 3rd Generation ( [facility]) Blood Venous blood specimen / Unknown 07/22/2024 10:05 AM EST 07/22/2024 11:44 AM EST Lindsey Gramajo DO LAB BLOOD ORDERABLES Final R esult Performing Organization Address [facility]/ZIP Co de Phone Number [facility] [address] [place] [phone] * T4, Free (07/22/2024 10:05 AM EST) Free T4 (Free Thyroxine) 0.78 0.71 - 1.85 ng/dL [facility] Blood Venous blood specimen / Unknown 07/22/2024 10:05 AM EST 07/22/2024 11:44 AM EST Lindsey Gramajo DO LAB BLOOD ORDERABLES Final R esult Performing Organization Address [facility] Co de Phone Number [facility] [address] [place] [phone] * (ABNORMAL) Hemoglobin A1c (07/22/2024 10:05 AM EST) Hemoglobin A1c 6.2(H) <6.0 % [facility] Comment:Hemoglobin A1C Refer ence Range Adults: 4.8 - 6.0 % Non diabetic: < 6.0 % Goal: < 7.0 %Additional Action Suggested: > 8.0 %Note: Hemoglobin A1c results are invalid for patients with abnormal amounts of HbF. Blood transfusions may impact the HbA1c concentration in the patient sample. Estimated Average Glucose 131 mg/dL [facility] Comment:eAG = Estimated ave rage glucose which is %A1C expressed asaverage glucose, using the formula of the M6O-BpeeojoHjjxddb Glucose study (ADAG), Diabetes Care, Vol.31,#8,Mar. 2007 Blood Venous blood specimen / Unknown 07/22/2024 10:05 AM EST 07/22/2024 11:44 AM EST Lindsey Gramajo DO LAB BLOOD ORDERABLES Final R esult Performing Organization Address [facility]/ZIP Co de Phone Number [facility] [address] [place] [phone] * Ferritin (07/22/2024 10:05 AM EST) Ferritin 35 10 - 122 ng/mL [facility] Blood Venous blood specimen / Unknown 07/22/2024 10:05 AM EST 07/22/2024 11:44 AM EST Lindsey Gramajo DO LAB BLOOD ORDERABLES Final R esult Performing Organization Address City/[facility]/ZIP Co de Phone Number [facility] [address] [place] [phone] * Hepatic Function Panel (07/22/2024 10:05 AM EST) Pathologist [facility] Bilirubin, Total 0.3 0.0 - 1.0 mg/dL [facility] Bilirubin, Direct 0.1 0.0 - 0.5 mg/dL [facility] Aspartate Amino Transferase 22 5 - 31 U/L [facility] Alanine Aminotransferase 15 0 - 31 U/L [facility] Total Protein 7.4 6.5 - 8.0 g/dL [facility] Albumin Level 4.0 3.5 - 5.0 g/dL [facility] Alkaline Phosphatase 65 39 - 117 U/L [facility] Blood Venous blood specimen / Unknown 07/22/2024 10:05 AM EST 07/22/2024 11:44 AM EST Lindsey Gramajo DO LAB BLOOD ORDERABLES Final R esult [facility] [address] [place] [phone] * Lipid Panel, Standard (07/22/2024 10:05 AM EST) Triglycerides 85 <150 mg/dL [facility] Comment:Desirable Triglyceri de: less than 150 mg/dLBorderline High Triglyceride 150-199 mg/dLHigh Triglyceride: 200-499 mg/dLVery High Triglyceride: greater than or equal to 5OO mg/dL Cholesterol 146 <200 mg/dL [facility] Comment:Desirable Cholestero l: less than 200 mg/dLBorderline High Cholesterol: 200-239 mg/dLHigh Cholesterol: greater than 239 mg/dL LDL Cholesterol Calculated 82 <100 mg/dL [facility] Comment:Desirable LDL: less than 100 mg/dLNear Optimal/Above Optimal LDL: 110- 129 mg/dLBorderline High LDL: 130-159 mg/dLHigh LDL: 160-189 mg/dLVery High LDL: greater than or equal to 190 mg/dL HDL Cholesterol 47 >40 mg/dL [facility] Comment:Desirable HDL: great er than 40 mg/dL Note: This HDL assay may give artificially low results in patients with liver disease. Blood Venous blood specimen / Unknown 07/22/2024 10:05 AM EST 07/22/2024 11:44 AM EST us Lindsey Gramajo DO LAB BLOOD ORDERABLES Final R esult [facility] [address] [place] [phone] * (ABNORMAL) Basic Metabolic Panel (07/22/2024 10:05 AM EST) Sodium 136 135 - 145 mmol/L [facility] Potassium 3.4 3.3 - 5.1 mmol/L [facility] Chloride 103 96 - 108 mmol/L [facility] Carbon Dioxide 25 22 - 29 mmol/L [facility] Anion Gap 11(L) 12 - 20 [facility] Urea Nitrogen (BUN) 11 9 - 16 mg/dL [facility] Creatinine, Serum 0.69 0.5 - 1.4 mg/dL [facility] Estimated Glomerular Filt Rate >60 [facility] Comment:Chronic Kidney Disea se: Estimated GFR < 60 mL/min/1.12d1Bsijbj Kidney Disease: Estimated GFR < 15 mL/min/1.73m2 Glucose 89 60 - 115 mg/dL [facility] Calcium 9.1 8.4 - 10.2 mg/dL [facility] Blood Venous blood specimen / Unknown 07/22/2024 10:05 AM EST 07/22/2024 11:44 AM EST Lindsey Gramajo DO LAB BLOOD ORDERABLES Final R esult [facility] [address] [place] [phone] [phone] from Last 3 Months Insurance * Guarantor: Nuria Dwyer Account Type Relation to Patient Date of Phone Billing Address Personal/Family Self [address] [place] MD Care Teams Geriatric Assistant Relationship Specialty Start Date End Date Lindsey Gramajo DO [address] [place] [phone] PCP - General Family Medicine 05/22/24
--- OUTSIDE RECORDS SUMMARY | 2024-09-30 11:11 | XMS_ITS | Encounter Summary ---
Author Organization [facility] Address [address] [place] [address] Care Team Providers Care Impregnator And Drier Helper Name Role Phone Pcp, No Primary Care Provider Unavailabl e Encounter Details Date Type Department Care Team (Late st Contact Info) Description 11/01/2020 Lab Requisition [place] COVID-[address] [facility] [address] [place] [phone] Carlos Cerda MD [address] [place], [place] [phone] Encounter for laboratory testing for COVID-19 virus [...] in this encounter Results * COVID-19 RT-PCR ([facility]) (11/01/2020 1:19 PM EST) COVID-19 RT-PCR SARS-COV-2 NOT DETECTED Not Detected 11/02/2020 9:00 PM EST [facility] Comment: ADDITIONAL INFORMATION The Slacker COVID-19 RT-PCR Assay is Real-Time Reverse Freight Sales Broker Polymerase Chain Reaction (supervisor bindery-PCR) for the in vitro qualitative detection of three SARS-Cov-2 target sequences unique to the coronavirus disease 2019 (COVID-19). This is an Emergency Use Authorization (EUA) in vitro diagnostic (IVD) test that has been modified to include the TLabs automated liquid handler. Its analytical performance characteristics have been determined by the scarf and anneal operator and verified by [facility] in a manner consistent with CLIA [...] at the following links: For Healthcare Providers: https://www.fda.gov/media/977429/download For Patients: https://www.fda.gov/media/602746/download TEST INTERPRETATION Data analysis and interpretation is performed using the Diana COVID-19 Interpretive Software. SARS-CoV-2 Not Detected: negative [...] included for positive specimens. As per the [employer] COVID-19 Combo Kit EUA documentation, each COVID target with a Ct value of <=37 is called Detected. Please note: The Slacker COVID-19 RT-PCR Assay is a qualitative test, [...] quarantine. For more information please refer to: https://www.cdc.gov/coronavirus/2019-ncov/lab/faqs.html#Mfbkaxudlszn-Fepehfy-kf- Diagn ostic-Tests TEST LIMITATIONS Positive results are [...] system. For further details refer to the [employer] TaqPath COVID-19 Combo Kit EUA submission (https://www.fda.gov/media/121355/download). ----- Test performed by [facility], [address] [place] [address] CLIA# [id number] ?[id number] ? Bradley Gallo M.D., Ph.D., [facility] [place], Clinical Dress Cap Maker Microbiology Nasopharyngeal swab / Unknown 11/01/2020 1:19 PM EST 11/01/2020 1:19 PM EST Narrative [facility] - 11/02/2020 9:00 PM EST Performed at [facility], [address] [place] [address], [place], [place], [place] Lic 0695, CLIA [id number] Carlos Cerda MD MICROBIOLOGY - GENER AL ORDERABLES [facility] [address] [place] [address] documented in this encounter Visit Diagnoses Diagnosis Encounter for laboratory testing for COVID-19 virus documented in this encounter Care Teams Impregnator And Drier Helper Relationship Specialty Start Date End Date Pcp, No PCP - General General Medicine 10/22/20 documented as of this encounter
--- OUTSIDE RECORDS SUMMARY | 2024-09-30 11:11 | XMS_ITS | Encounter Summary ---
Author Organization [employer] [facility] Address [address] [place] [address] 7t [place] [address] Care Team Providers Care Fundraising Assistant Name Role Phone Elina Cohen Primary Care Provider [phone] Zuleika Baltazar MD Primary Care Provide r Lindsey Gramajo DO Primary Care Provider [phone] Reason for Visit * Reason Onset Date Comments Nurse Triage 02/05/2024 Encounter Details Date Type Department Care Team (Late st Contact Info) Description 02/05/2024 Telephone [facility]INE [address] [place], [place] [phone] Elina Cohen FNP 230 [place] [address] Nurse Triage Social History Tobacco Use Types [...] at time of call. Patient advised of [facility] hours and availability for today and tomorrow at time of call. Triage nurse informed the patient may have a wait of 1-2 hours because [facility] may have delays from patient???s walking in with urgent medical needs. Insurance verified at time of call. Team tasked to review with PCP but patient advised to present to [facility] after work. Protocol Used: Urine - Blood [...] Description 10/30/2024 1:45 PM EST Office Visit [facility] [address] [place] [address] Josephine Lawson, OD [address] [place] [address] documented as of this encounter Visit Diagnoses Not on filedocumented in this encounter Additional Health Concerns Assessment Noted Time PHQ-9 Depression Total Score: 15 024 1:53 PM EDT documented as of this encounter Care Teams Fundraising Assistant Relationship Specialty Start Date End Date Elina Cohen FNP 230 [place] [address] PCP - General Family Medicine 03/06/23 04/28/24 Zuleika Baltazar MD [address] [place] [address] PCP - General Internal Medicine 04/29/24 05/21/24 Lindsey Gramajo DO [address] [place] [address] PCP - General Family Medicine 05/22/24 documented as of this encounter
--- OUTSIDE RECORDS SUMMARY | 2024-09-30 11:11 | XMS_ITS | Encounter Summary ---
Author Organization [employer] Address [address] [facility] 7t h Floor [address] Care Team Providers Care Brokerage Office Manager Name Role Phone Lindsey Gramajo DO Primary Care Provider [phone] Reason for Visit * Reason Onset Date Comments Nurse Triage 09/25/2024 Encounter Details Date Type Department Care Team ([facility] st Contact Info) Description 09/25/2024 Telephone [facility] MEDICINE 230 [place] [address] Lindsey Gramajo DO [address] [place], [place] [phone] Nurse Triage Social History Tobacco Use Types [...] Center 09/25/2024 2:30 PM ALFREDO Oliva MEDICINE [facility] 10/30/2024 1:45 PM Josephine Lawson OD VISION [facility] Insurance verified as active per Real Time Eligibility in [employer]. Protocol Used: Rash or Redness - Widespread [...] Description 10/30/2024 1:45 PM EST Office Visit [facility] OPT[facility] [address] [place] [address] Josephine Lawson, OD [address] [place] [address] documented as of this encounter Visit Diagnoses Not on filedocumented in this encounter Additional Health Concerns Assessment Noted Time PHQ-9 Depression Total Score: 14 024 3:31 PM EST documented as of this encounter Care Teams Brokerage Office Manager Relationship Specialty Start Date End Date Lindsey Gramajo DO [address] [place] [address] PCP - General Family Medicine 05/22/24 documented as of this encounter
--- OUTSIDE RECORDS SUMMARY | 2024-09-30 11:11 | XMS_ITS | Encounter Summary ---
Author Organization [employer] Address [address] [facility] [address] [facility] [address] 7t [place] [address] Care Team Providers Care Managing Director Name Role Phone Avila Lindsey Primary Care Provider [phone] Encounter Details Date Type Department Care Team (Late st Contact Info) Description 09/26/2024 Orders Only [facility] 230 [place], [place] [phone] Summer Aguilar ANP 230 [place], [place] [phone] Vaginal discharge (Primary Dx) Social History Tobacco Use Types Packs/Day Years [...] AM EDT documented as of this encounter Progress Notes * ALFREDO Oliva - 09/26/2024 10:51 AM EST Specimen error - lab won't process sample from yesterday, [place] will contact pt to re-collect. documented in this encounter Plan of Treatment Upcoming Encounters Date Type Department Care Team (Late st Contact Info) Description 10/30/2024 1:45 PM EST Office Visit [facility] [address] [place] [address] Lescindy Josephine, OD [address] [place] [address] Scheduled Orders Name Type Priority Associated Diagnoses Orde r Schedule Bacterial Vaginosis Panel Microbiology Routine Vaginal discharge Expected: 09/26/2024 (Approximate), Expires: 09/26/2025 documented as of this encounter Visit Diagnoses Diagnosis Vaginal discharge- Primary Leukorrhea, not specified as infective documented in this encounter Additional Health Concerns Assessment Noted Time PHQ-9 Depression Total Score: 14 024 3:31 PM EST documented as of this encounter Care Teams Managing Director Relationship Specialty Start Date End Date Lindsey Gramajo DO 230 [place] [address] PCP - General Family Medicine 05/22/24 documented as of this encounter
--- OUTSIDE RECORDS SUMMARY | 2024-09-30 11:11 | XMS_ITS | Encounter Summary ---
Author Organization [employer] [facility] Address [address] [facility] 7t [place] [address] Care Team Providers Care Acrobatic Dancer Name Role Phone Alfonso Figueroa [facility] Primary Care Provider Brittany Sam [facility] Primary Care Provider [phone] Elina Cohen [facility] Primary Care Provider [phone] Zuleika Baltazar MD Primary Care Provide r Lindsey Gramajo DO Primary Care Provider [phone] Encounter Details Date Type Department Care Team (Late Contact Info) Description 09/14/[address] [facility] MEDICINE [address] [place], [place] [phone] Provider, MD Cesar Social History Tobacco Use [...] Description 10/30/2024 1:45 PM EST Office Visit [facility] [address] [place], [place] [phone] Josephine Lawson, OD [address] [place] [address] documented as of this encounter Visit Diagnoses Not on filedocumented in this encounter Care Teams Acrobatic Dancer Relationship Specialty Start Date End Date Alfonso Figueroa FNP PCP - General 07/18/22 10/25/22 Brittany Almanza FNP PCP - General Family Medicine 10/26/22 03/05/23 Elina Cohen FNP [address] [place] [address] PCP - General Family Medicine 03/06/23 04/28/24 Zuleika Baltazar MD [address] [place] [address] PCP - General Internal Medicine 04/29/24 05/21/24 Lindsey Gramajo DO [address] [place] [phone] PCP - General Family Medicine 05/22/24 documented as of this encounter
== END 2024-09-30 11:12 | disposition home or self-care (01) ==
PROVIDERS: PCP Family Medicine; Visit Provider Physician Assistant Surgical
DX: E66.9 Obesity, unspecified (principal); Z98.84 Bariatric surgery status
CPT/HCPCS: 99214

== ENCOUNTER 2024-10-02 09:03 | Outpatient (REF) | payer MEDICAID, SELFPAY ==
--- NOTE | ~2024-10-02 | FL_ITS ---
EXAMINATION: XR FLUOROSCOPY UPPER GI WITH AIR CLINICAL INFORMATION: Unspecified abdominal pain COMPARISON: None available. TECHNIQUE: Routine upper GI contrast study was performed in upright and lying position. FINDINGS: Lateral administration of thick barium and effervescent granules is normal propagation bolus from the oral cavity through the pharynx, esophagus into stomach without any evidence of obstruction, narrowing or stricture. On placing supine and prone the course and peristalsis of the stomach, duodenal bulb and sweep is normal. The mucosal pattern stomach and the duodenum is normal. There is a moderate to large gastroesophageal reflux during the exam and supine view with no hiatal hernia seen. Patient is status post gastric sleeve surgery with a small caliber stomach noted. Gallbladder bladder has been surgically removed with yobany in right upper quadrant. FLUOROSCOPY TIME: 1 minute 30 seconds DOSE AREA PRODUCT: 1631 uGy-m2 (microgray-meter squared) FL/FL upper GI w air IMPRESSION: Status post gastric sleeve surgery with a small stomach noted. Visualized stomach, duodenal bulb and the sweep is normal. There is moderate to large gastroesophageal reflux without hiatal hernia. Electronically signed by: Polo Garcias MD 10/02/2024 10:42 AM DOE
--- OUTSIDE RECORDS SUMMARY | 2024-10-02 09:12 | XMS_ITS | Encounter Summary ---
Author Organization [facility] Address [address] [place] [address] Care Team Providers Care Booking Prizer Name Role Phone Pcp, No Primary Care Provider Unavailabl e Encounter Details Date Type Department Care Team (Late st Contact Info) Description 11/01/2020 Lab Requisition [place] COVID-19 Testing [facility] [address] [place] [address] Carlos Cerda MD [address] [place], [place] [id number] Encounter for laboratory testing for COVID-19 virus [...] in this encounter Results * COVID-19 RT-PCR ([facility]) (11/01/2020 1:19 PM EST) COVID-19 RT-PCR SARS-COV-2 NOT DETECTED Not Detected 11/02/2020 9:00 PM EST [facility] Comment: ADDITIONAL INFORMATION The [employer] COVID-19 RT-PCR Assay is Real-Time Reverse Residential Subcontractor Polymerase Chain Reaction (magnetic doctor-PCR) for the in vitro qualitative detection of three SARS-Cov-2 target sequences unique to the coronavirus disease 2019 (COVID-19). This is an Emergency Use Authorization (EUA) in vitro diagnostic (IVD) test that has been modified to include the Lernstift automated liquid handler. Its analytical performance characteristics have been determined by the web pressman and verified by [facility] in a manner consistent with CLIA [...] at the following links: For Healthcare Providers: https://www.fda.gov/media/993115/download For Patients: https://www.fda.gov/media/558784/download TEST INTERPRETATION Data analysis and interpretation is performed using the Top[employer] COVID-19 Interpretive Software. SARS-CoV-2 Not Detected: negative [...] included for positive specimens. As per the [employer] COVID-19 Combo Kit EUA documentation, each COVID target with a Ct value of <=37 is called Detected. Please note: The Advaxis COVID-19 RT-PCR Assay is a qualitative test, [...] quarantine. For more information please refer to: https://www.cdc.gov/coronavirus/2019-ncov/lab/faqs.html#Qtohjpjdirvq-Wvuwaic-fk- Diagn ostic-Tests TEST LIMITATIONS Positive results are [...] system. For further details refer to the [employer] TaqPath COVID-19 Combo Kit EUA submission (https://www.fda.gov/media/191259/download). ----- Test performed by [facility], [address] [place] [address] CLIA# [id number] ?[id number] ? Bradley Gallo M.D., Ph.D., [facility] Clinical Director Stars Microbiology Nasopharyngeal swab / Unknown 11/01/2020 1:19 PM EST 11/01/2020 1:19 PM EST Narrative [facility] - 11/02/2020 9:00 PM EST Performed at [facility], [address] [place] [address], [place], [place], [place] Lic [address], CLIA [id number] Carlos Cerda MD MICROBIOLOGY - GENER AL ORDERABLES [facility] [address] [place] [address] documented in this encounter Visit Diagnoses Diagnosis Encounter for laboratory testing for COVID-19 virus documented in this encounter Care Teams Booking Prizer Relationship Specialty Start Date End Date Pcp, No PCP - General General Medicine 10/22/20 documented as of this encounter
--- OUTSIDE RECORDS SUMMARY | 2024-10-02 09:12 | XMS_ITS | Clinical Summary ---
Author Organization [facility] Address [address] [place] [address] Care Team Providers Care Dump Grader Name Role Phone Pcp, No Primary Care [...] this topic Medical Devices Implanted Type Area Therapeutic Recreation Assistant Device Identifier Shelf Expiration Date Model / Serial / Lot Natrelle Inspira Cohesive Breast Implant Implanted:Qty: 1 on 11/05/2020 by Carlos Cerda MD at [facility] Breast Right: Breast [employer] 11/05/2024 [id number] / [id number] / Natrelle Inspira Cohesive Breast Implant Implanted:Qty: 1 on 11/05/2020 by Carlos Cerda MD at [facility] Breast Left: Breast [employer] 05/22/2025 [id number] / [id number] / Urogyn Urogyn Care Teams Dump Grader Relationship Specialty Start Date End Date Pcp, No PCP - General General Medicine 10/22/20
[2024-10-02 10:02] LABS: MANUAL DIFF FLAG NO
[2024-10-02 10:33] LABS: Basophils Absolute Auto 0.1 X10*3/uL (0.0-0.2); Eosinophils Absolute Auto 0.2 X10*3/uL (0.0-0.4); Eosinophils Percent Auto 1.7 % (0-4); Hematocrit 41.3 % (37.0-47.0); Hemoglobin 13.4 g/dl (12.0-16.0); Imm Gran Abs Auto 0.02 X10*3/uL (0.00-0.03); Imm Gran Pct Auto 0.2 % (0.0-0.4); Lymphocytes Absolute Auto 2.1 X10*3/uL (1.2-4.9); Lymphocytes Percent Auto 23.4 % (20-40); Mean Corpuscular HGB Conc 32.4 g/dl (31.0-35.0); Mean Corpuscular Hemoglobin 26.6 pg (27.0-33.0); Mean Corpuscular Volume 82.1 fL (80.0-98.0); Mean Platelet Volume 9.8 fL (9.4-12.3); Monocytes Absolute Auto 0.5 X10*3/uL (0.1-1.2); Monocytes Percent Auto 6.2 % (2-11); Neutrophils Absolute Auto 5.9 x10*3/uL (2.0-8.3); Neutrophils Percent Auto 67.5 % (45-73); Platelet Count 316 X10*3/uL (160-400); Red Blood Count 5.03 X10*6/uL (4.20-5.50); Red Cell Distribution Width 14.5 % (11.0-16.0); White Blood Count 8.8 X10*3/uL (4.8-10.8)
[2024-10-02 11:12] LABS: Alanine Aminotransferase 22 U/L (0-31); Albumin Level 4.7 g/dL (3.5-5.0); Alkaline Phosphatase 71 U/L (39-117); Anion Gap 13 (12-20); Aspartate Amino Transferase 24 U/L (5-31); Bilirubin Total 0.5 mg/dL (0.0-1.0); Blood Urea Nitrogen 14 mg/dL (9-16); C Reactive Protein 0.44 mg/dL (< or = 0.50); Calcium 10.3 mg/dL (8.4-10.2); Carbon Dioxide 25 mmol/L (22-29); Chloride 101 mmol/L (96-108); Cholesterol 168 mg/dL (<200); Estimated Glomerular Filt Rate > 60; Glucose Random 116 mg/dL (60-115); HDL Cholesterol 46 mg/dL (>40); Iron 118 mcg/dL (30-160); LDL Cholesterol Calculated 102 mg/dL (<100); Percent Iron Saturation 28 % (15-50); Potassium 3.4 mmol/L (3.3-5.1); Sodium 136 mmol/L (135-145); Total Iron Binding Capacity 416 mcg/dL (228-428); Total Protein 9.2 g/dL (6.5-8.0); Triglycerides 103 mg/dL (<150); Unsaturated Iron Binding 298 ug/dL
[2024-10-02 11:18] LABS: HIV AB/AG Nonreactive (Nonreactive); HIV Num 1 0.05 S/CO (0.00-0.99); Syphilis Screen Nonreactive (Nonreactive)
[2024-10-02 11:21] LABS: Estimated Average Glucose 120 mg/dL; Hemoglobin A1C 138.6672 umol/L; Hemoglobin A1c % 5.8 % (<6.0); Total Hemoglobin (HGBA1C) 3444.8736 umol/L
[2024-10-02 11:24] LABS: Ferritin 34 ng/mL (10-122); TSH reflex Free T4 3.19 uIU/mL (0.32-4.0); Vitamin D 25-OH Total 28.8 ng/mL (>30)
[2024-10-02 11:37] LABS: Folate 12.5 ng/mL (> or = 4.0); Vitamin B12 248 pg/mL (200-900)
[2024-10-02 12:02] LABS: Insulin 19 uU/mL (2-29)
[2024-10-06 14:44] LABS: Zinc 79 mcg/dL (60-130)
[2024-10-07 17:39] LABS: Vitamin A 60 mcg/dL (38-98)
[2024-10-08 16:53] LABS: Vitamin B1 7 nmol/L (8-30)
== END 2024-10-02 09:04 | disposition home or self-care (01) ==
LOC: HO.XRAY 09:03
PROVIDERS: Internal Medicine; PCP Family Medicine; Visit Provider Physician Assistant Surgical
DX: R10.9 Unspecified abdominal pain (principal); Z98.84 Bariatric surgery status; Z20.2 Contact with and (suspected) exposure to infections with a predominantly sexual mode of transmission; Z90.49 Acquired absence of other specified parts of digestive tract
CPT/HCPCS: 36415; 74246; 80053; 80061; 82306; 82607; 82728; 82746; 83036; 83525; 83540; 84425; 84443; 84590; 84630; 85025; 86140; 86780; 87389

== ENCOUNTER → 2024-10-02 09:04 | Outpatient (BNV) | payer MEDICAID, SELFPAY | PROVIDERS: PCP Family Medicine; Visit Provider Radiology Diagnostic Radiology | DX: R10.9 Unspecified abdominal pain (principal) | CPT/HCPCS: 74246; 74248 ==

== ENCOUNTER 2024-11-04 13:51 | Outpatient (AMB) | payer MEDICAID, SELFPAY ==
--- NOTE | 2024-11-04 14:01 | MHC.OFFVISWM ---
VS Expanded 11/04/24 14:06 BP 137/88 Blood Pressure Location Rt brachial Blood Pressure Position Sitting Pulse 86 Pulse Source Pulse Oximeter Temp 97.7 F Temperature Source Temporal Artery Scan Pulse Oximetry 99 Oxygen Delivery Method Room Air Height 5 ft 5 in Weight 204 lb 6.4 oz BMI 34.0 Body Fat % 40.6 Body Fat Mass 82.8 Fat Free Mass 121.4 Visceral Fat Rating 8.0 Body Water % 42.6 Body Water Mass 87.0 Muscle Mass/Score 115.4 Basal Metabolic Rate/Score 1,699 Intake Visit Reasons: (OV) PO LSG 04/15/19 *GLP-1* Allergies doxycycline [DOXYCYCLINE] Allergy (Intermediate, Verified 09/30/24 10:30) RASH/HIVES ?penicillin Allergy (Unknown, Uncoded 06/27/22 13:22) Unknown HPI Comments Details: This?a?33?yo female who is s/p LSG without hiatal hernia repair on?04/15/2019. Presents for 5 year 7 month post op visit. Weight today is 204.4 pounds, with a BMI of 34. She was last seen in the office in 10/16/2024 after not being seen for a year. At that time, her weight was 206.4 lb. She was given information regarding the right BMI nida. complain of epigastric pain and feeling hungry at night Present meal plan includes: fairlife RTD 26 gm 9-11, 1-3, 5-7 drinking shakes over 1/2 hour drinking 32 oz water, can of coke daily Exercise routine includes: no exercise equipment at house no gym membership but goes to [facility] [employer] which has a gym [facility] Medical History PCOS (polycystic ovarian syndrome) Intestinal malabsorption following gastrectomy Overweight (BMI 25.0-29.9) Surgical History Hx of breast augmentation S/P laparoscopic sleeve gastrectomy History of sleeve gastrectomy Hx of carpal tunnel repair Hx of cholecystectomy Family History Father No problems noted. Mother High cholesterol Diabetes mellitus CVD (cardiovascular disease) Arthritis Brother Overdose Brother No problems noted. Sister No problems noted. Daughter No problems noted. 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 [employer] Sexual orientation: Straight/Heterosexual Gender identity: Female Female Reproductive History Menstrual Age of Menarche: 8 Physical Exam Vital Signs: Last Vital Signs Temp 97.7 F 11/04/24 14:06 Pulse 86 11/04/24 14:06 BP 137/88 11/04/24 14:06 Pulse Ox 99 11/04/24 14:06 Oxygen Delivery Method Room Air 11/04/24 14:06 BMI result Body Mass Index 34.0 Const General: healthy appearing and no acute distress Resp Effort & Inspection: normal respiratory effort Auscultation: clear to auscultation bilaterally Cardio Rate: regular rate Rhythm: regular rhythm GI Auscultation: normal bowel sounds Extrem General: Yes normal to inspection Assessment & Plan Assessment & Plan (1) S/P laparoscopic sleeve gastrectomy: Comment: JUNAID 04/15/19, Dr. Proctor Code(s): Z98.84 - Bariatric surgery status Category: Surgical Plan: When patient went into the right BMI program, she chose aggressive. I recommended that she use the recommended setting. She will incorporate both protein shakes, protein bars and food. Discussed the importance of following the plan exactly. She should be drinking her shakes over 2 hour period, not over 30 minutes. This will resolve her epigastric discomfort. Additionally, taking small bites of food and chewing well. She has been encouraged to increase her fluid intake. She has not been exercising and discussed the importance of exercising. She goes to [place] and there is a gym there which she may use. Discussed the importance of tracking her calories burned with a goal of 300 per day or 2000 per week. We will have her return to the office in approximately 6 weeks. She was again given my phone number to send me her weight is weekly and text with any questions or concerns.
[2024-11-04 14:06] VITALS: BP 137/88; PULSE 86; TEMP 36.5; O2SAT 99; BMI 34.0
--- OUTSIDE RECORDS SUMMARY | 2024-11-04 16:52 | XMS_ITS | Clinical Summary ---
Author Organization [facility] Address [address] [place] [address] Care Team Providers Care Disease Case Manager Rn Name Role Phone Pcp, No Primary Care [...] this topic Medical Devices Implanted Type Area Priming Mixture Carrier Device Identifier Shelf Expiration Date Model / Serial / Lot Natrelle Inspira Cohesive Breast Implant Implanted:Qty: 1 on 11/05/2020 by Carlos Cerda MD at [facility] Breast Right: Breast [employer] 11/05/2024 [facility] [id number] / [id number] / Natrelle Inspira Cohesive Breast Implant Implanted:Qty: 1 on 11/05/2020 by Carlos Cerda MD at [facility] Breast Left: Breast [employer] 05/22/2025 [facility] [id number] / [id number] / Urogyn Urogyn Care Teams Disease Case Manager Rn Relationship Specialty Start Date End Date Pcp, No PCP - General General Medicine 10/22/20
--- OUTSIDE RECORDS SUMMARY | 2024-11-04 16:52 | XMS_ITS | Encounter Summary ---
Author Organization [facility] Address [address] [place] [address] Care Team Providers Care Research & Insights Executive Name Role Phone Pcp, No Primary Care Provider Unavailabl e Encounter Details Date Type Department Care Team (Late st Contact Info) Description 11/01/2020 Lab Requisition [place] COVID-19 Testing [facility] [address] [place] [address] Carlos Cerda MD [address] [place], [place] [id number] Encounter for laboratory testing for COVID-19 virus [...] in this encounter Results * COVID-19 RT-PCR ([facility]) (11/01/2020 1:19 PM EST) COVID-19 RT-PCR SARS-COV-2 NOT DETECTED Not Detected 11/02/2020 9:00 PM EST [facility] Comment: ADDITIONAL INFORMATION The [employer] COVID-19 RT-PCR Assay is Real-Time Reverse Flue Dust Laborer Polymerase Chain Reaction (motor vehicle compliance analyst-PCR) for the in vitro qualitative detection of three SARS-Cov-2 target sequences unique to the coronavirus disease 2019 (COVID-19). This is an Emergency Use Authorization (EUA) in vitro diagnostic (IVD) test that has been modified to include the Music[employer] automated liquid handler. Its analytical performance characteristics have been determined by the manpower development specialist and verified by [facility] in a manner consistent with CLIA [...] at the following links: For Healthcare Providers: https://www.fda.gov/media/646558/download For Patients: https://www.fda.gov/media/552327/download TEST INTERPRETATION Data analysis and interpretation is performed using the [employer] COVID-19 Interpretive Software. SARS-CoV-2 Not Detected: negative [...] included for positive specimens. As per the [employer] COVID-19 Combo Kit EUA documentation, each COVID target with a Ct value of <=37 is called Detected. Please note: The [employer] COVID-19 RT-PCR Assay is a qualitative test, [...] quarantine. For more information please refer to: https://www.cdc.gov/coronavirus/2019-ncov/lab/faqs.html#Tcmephynkqcm-Moggrdl-ay- Diagn ostic-Tests TEST LIMITATIONS Positive results are [...] system. For further details refer to the [employer] TaqPath COVID-19 Combo Kit EUA submission (https://www.fda.gov/media/733378/download). ----- Test performed by [facility], [address] [place] [address] CLIA# [id number] ?[id number] ? Bradley Gallo M.D., Ph.D., [facility] [place] Clinical Hat Designer Microbiology Nasopharyngeal swab / Unknown 11/01/2020 1:19 PM EST 11/01/2020 1:19 PM EST Narrative [facility] - 11/02/2020 9:00 PM EST Performed at [facility], [address] [place] [address], [place], [place], [place] Lic [address], CLIA [id number] Carlos Cerda MD MICROBIOLOGY - GENER AL ORDERABLES [facility] [address] [place] [address] documented in this encounter Visit Diagnoses Diagnosis Encounter for laboratory testing for COVID-19 virus documented in this encounter Care Teams Research & Insights Executive Relationship Specialty Start Date End Date Pcp, No PCP - General General Medicine 10/22/20 documented as of this encounter
--- OUTSIDE RECORDS SUMMARY | 2024-11-04 16:52 | XMS_ITS | Clinical Summary ---
Author Organization [employer] Address [address] [place] [address] Care Team Providers Care Shift Supervisor Rn Name Role Phone Lindsey Gramajo DO Primary Care Provider Allergies Active Allergy Reactions Criticality Noted Date Comments Doxycycline Hives Medium 03/28/2018 rash Penicillin G 01/03/2024 hives Penicillins 02/11/2020 Medications * This document contains information received from the source organization and may not represent a complete record from that organization. Blood Pressure Monitor kitIndications:E levated BP without diagnosis of hypertension 1 Units Once per day. 1 kit 4 Active DULoxetine (Cymbalta) [address] capsule Take 1 capsule (20 mg) by mouth Once per day. Do not crush or chew. 30 capsule 1 4 025 Active hydroCHLOROthiaz giovanni (HYDRODiuril) 25 MG tablet Take 1 tablet (25 mg) by mouth Once per day. 90 tablet 4 Active cetirizine (ZyrTEC) 10 MG tabletIndication s:Acute cough Take 1 tablet (10 mg) by mouth Once per day. 90 tablet 3 4 025 Active QUEtiapine (SEROquel) 25 MG tablet TAKE [...] bedtime for heartburn. 60 tablet 3 4 025 Active triamcinolone (Nasacort) 55 MCG/ACT nasal inhaler Administer 2 sprays into each nostril Once per day. 16.5 g 11 4 025 Active ammonium lactate (Lac-Hydrin) 12 % lotion Apply topically if needed (dry skin on arms). 396 g 3 4 025 Active FREESTYLE LITE test strip Use to test blood sugar 2 times daily 100 each 11 4 025 Active Lancets misc Use to test blood sugar 2 times daily 100 each 4 Active Alcohol Swabs 70 % pads Use to test blood sugar 2 times daily 100 each 11 4 Active Blood Glucose Monitoring Suppl (FreeStyle [place] Lite) w/Device kit Use to test blood sugar 2 times daily 1 kit 4 Active albuterol 108 (90 Base) MCG/ACT inhalerIndicatio ns:Subacute cough Inhale 2 puffs every 6 (six) hours if needed for wheezing. 18 g 1 5 026 Active metroNIDAZOLE (Flagyl) 500 MG tabletIndication s:Bacterial vaginosis Take 1 tablet (500 mg) by mouth 2 times daily for 7 days. Avoid alcohol 14 tablet 5 025 Miconazole Nitrate-Wipes (Monistat 3 Combination Pack) 200-2 MG-% kit Insert 1 Application into the vagina at bedtime for 3 days. 1 kit 5 025 Active Problems Problem Noted Date Diagnosed Date [...] intervention , Patient to reach out to [facility] team as needed, Patient to engage in [...] intervention , Patient to reach out to [facility] team as needed, Patient to engage in OP therapy , and Patient to reach out to [facility] as needed History of anemia 01/03/2024 H/O [...] suggesting possible ischemia (report of [facility] from [facility] 11/29/23 normal) and exam with tachycardia and clear lung exam, recommend ER. Pt refuses ambulance but agrees to go to ER now. Tinea cruris 06/05/2023 07/08/2024 Vaginal discharge 06/05/2023 07/08/2024 Missed period 06/05/2023 07/08/2024 Positive test 09/20/2022 06/0 12/2022 Overview (09/20/2022): LMP 08/19/22 DIOR 05/26/2023 Chapped skin 09/20/2017 07/08/2024 Iron deficiency anemia 07/27/201707/08 Obesity 09/17/2015 07/08/2024 Encounters Date Type Department Care Team Description 10/30/2024 Telephone [facility] OPTOMETRY [address] [place], [place] [phone] Josephine Lawson OD 10/30/[address] [address] Lindsey Gramajo DO Recall Letter (Recall Letter sent 10/30/24.) 10/03/[address] [address] Eloise Nicholas RN Results 10/03/2024 Orders Only [facility] MED & PEDS [address] [place], [place] [phone] Colleen Rust MD BV (bacterial vaginosis) (Primary Dx); Vaginal candidiasis 10/02/2024 Orders Only GENERIC EXTERNAL DATA DEPARTMENT Provider, Generic External Data 10/01/[address] [address] Lindsey Gramajo DO Medication Question 09/30/2024 2:20 PM EST Office Visit [facility] WALK-IN [address] [address] Colleen Rust MD Possible exposure to STI (Primary Dx); Itching in the vaginal area 09/29/[address] [address] Summer Aguilar ANP 09/26/2024 Orders Only [address] [address] Summer Aguilar ANP Vaginal discharge (Primary Dx) 09/26/[address] [address] Maira Fontanez [place] Lab Orders (Received call from [facility] lab. BV Panel specimen is being rejected because the specimen cap was not closed tightly and the liquid in the tube spilled out. Patient will need to submit new specimen. Message sent to ordering provider ELMER Oliva and [place]. MULLIGAN to contact patient for recollect. //) 09/26/[address] [address] Trisha Coulter RN Lab Orders 09/25/2024 2:30 PM EST Office Visit [address] [address] Summer Aguilar ANP Subacute cough (Primary Dx); SOB (shortness of breath); Mucus in stool; Generalized pruritus; Vaginal discharge; Essential hypertension; Non-seasonal allergic rhinitis, unspecified trigger; Family history of Crohn's disease 09/25/2024 Travel 09/25/2024 Telephone [facility] MEDICINE [address] [place] [phone] Lindsey Gramajo DO Nurse Triage from Last 3 Months Immunizations Name Administration Dates Next Due DTaP 12/07/1994, 1,11/13/1990,03/15,01/10/1990 HPV, Quadrivalent 11/04/2009 Hep B, Adolescent or Pediatric 10/12/1998,1997,04/09/1998 Hib ([facility]) 01/28/1991 IPV 12/07/1994, 1,03/15/1990,01/10 Influenza injectable [...] 09/30/2024 2:41 PM EST Plan of Treatment Health Maintenance Due Date [...] 2 - PCV) 04/15/2020 04/15/2019 COVID-19 Vaccine (3 - season) 2024 10/20/2020, 09/22/2020 Depression Monitoring (PHQ-9) 01/05/2025 07/08/2024, 07/08/2024 Alcohol/Substance Use Screening 03/07/2025 03/07/2024 SDOH Screening 03/07/2025 03/07/2024 Diabetes: Hemoglobin A1C 04/01/2025 025, 07/22/2024, 03/18/2024, Additional history exists Depression Screening 07/08/2025 07/08/2024, 07/08/20 Diabetes: Urine Protein Screening 07/22/2025 07/22/2024 Tobacco Screening 09/30/2025 09/30/2024 Lipid Panel 10/02/2025 10/02/2024, 06/28, 12/01/2021, Additional history exists DTaP/Tdap/Td Vaccines (7 - Td or Tdap) [...] Completed 07/08/2024, , 07/26/2017, Additional history exists Hepatitis C Screening Completed 07/22/2024 , 03/18/2024, 01/17/2024, Additional history exists HIV Screening Completed 10/02/2024, 06/28, 03/18/2024, Additional history exists Meningococcal Vaccine Aged Out No eunice ruby eligible based on patient's age to complete this topic RSV under 20 months Aged Out No longe r eligible based on patient's age to complete this topic Rotavirus Vaccines Aged Out No longer eligible based on patient's age to complete this topic Procedures Procedure Name Priority Date/Time Associated Diagnosis Comments VITAMIN B1 Routine 10/02/2024 10:00 AM EST VITAMIN A Routine 10/02/2024 10:00 AM EST ZINC Routine 10/02/2024 10:00 AM EST INSULIN Routine 10/02/2024 10:00 AM EST VITAMIN B12/FOLATE, SERUM PANEL Routine 10/02/2024 10:00 AM EST TSH W/REFLEX TO FT4 Routine 10/02/2024 1 0:00 AM EST VITAMIN D,25-OH,TOTAL,IA Routine 10/02/2024 10:00 AM EST FERRITIN Routine 10/02/2024 10:00 AM EST HEMOGLOBIN A1C Routine 10/02/2024 10:00 AM EST LIPID PANEL, STANDARD Routine 10/02/2024 10:00 AM EST C-REACTIVE PROTEIN Routine 10/02/2024 10 :00 AM EST IRON AND TOTAL IRON BINDING CAPACITY Routine 10/02/2024 10:00 AM EST COMPREHENSIVE METABOLIC PANEL Routine 10/02/2024 10:00 AM EST CBC WITH AUTO DIFFERENTIAL Routine 10/02/2024 10:00 AM EST HIV 1/2 ANTIGEN/ANTIBODY, FOURTH GENERATION W/RFL Routine 10/02/2024 10:00 AM EST Possible exposure to STI SYPHILIS SCREEN Routine 10/02/2024 10:00 AM EST Possible exposure to STI FL UPPER GI W AIR Routine 10/02/2024 9:0 4 AM EST POCT URINALYSIS DIPSTICK Routine 09/30/2024 3:08 PM EST Itching in the vaginal area BACTERIAL VAGINOSIS PANEL Routine 09/30/2024 3:00 PM EST Possible exposure to STI CHLAMYDIA/N. GONORRHOEAE RNA, TMA, UROGENITAL Routine 09/30/2024 3:00 PM EST Possible exposure to STI BACTERIAL VAGINOSIS PANEL Routine 09/25/2024 3:40 PM EST Vaginal discharge HEPATITIS C AB W/REFL TO HCV RNA, [...] Encounter for immunization from Last 3 Months or Most Recently Relevant to Health Maintenance Results * Syphilis Screen (10/02/2024 10:00 AM EST) Syphilis Screen Nonreactive Nonreactive [facility] Blood 10/02/2024 10:0 0 AM EST 10/02/2024 10:00 AM EST us Colleen Rust MD LAB BLOOD ORDERABLES Final Re sult Performing Organization Address City/[facility]/ZIP Co de Phone Number [facility] [address] [place] [phone] * (ABNORMAL) Vitamin D, 25-Hydroxy, Total, Immunoassay (10/02/2024 10:00 AM EST) Vitamin D 25-OH Total 28.8(L) >30 ng/mL [facility] Comment:Health Based Referen ce Values*< 20 ng/mL [id number] ng/mL Insufficient> 30 ng/mL Sufficient*Glenis SANCHES. N [...] confirmed with another method such as LC-MS/MS. 10/02/2024 10:0 0 AM EST 10/02/2024 10:00 AM EST us Generic External Data Provider LAB BLOOD ORDERAB LES Final Result Performing Organization Address [facility]/ZIP Co de Phone Number [facility] [address] [place] [phone] * Vitamin B12 (Cobalamin) and Folate Panel, Serum (10/02/2024 10:00 AM EST) Vitamin B12 248 200 - 900 pg/mL [facility] Comment:NORMAL 200-900 PG/ML INDETERMINATE 160-199 PG/ML DEFICIENT < 160 PG/ML Folate 12.5 > or = 4.0 ng/mL [facility] Comment:Reference Values:> o r = 4.0 ng/mL< 4.0 ng/mL suggests folate deficiency Methotrexate, aminopterin and folinic acid(leucovorin) are chemotherapeutic agents whose molecularstructures are similar to folate; therefore, the Architectfolate assay cannot be used for patients using these drugs. 10/02/2024 10:0 0 AM EST 10/02/2024 10:00 AM EST Generic External Data Provider LAB BLOOD ORDERAB LES Final Result Performing Organization Address [facility]/ZIP Co de Phone Number [facility] [address] [place] [phone] * TSH with Reflex to Free T4 (10/02/2024 10:00 AM EST) Pathologist [facility] TSH reflex Free T4 3.19 0.32 - 4.0 uIU/mL [facility] 10/02/2024 10:0 0 AM EST 10/02/2024 10:00 AM EST Generic External Data Provider LAB BLOOD ORDERAB LES Final Result Performing Organization Address [facility] Co de Phone Number [facility] [address] [place] [phone] * (ABNORMAL) CBC auto differential (10/02/2024 10:00 AM EST) White Blood Count 8.8 4.8 - 10.8 X10*3/uL [facility] Red Blood Count 5.03 4.20 - 5.50 X10*6/uL [facility] Hemoglobin 13.4 12.0 - 16.0 g/dl [facility] Hematocrit 41.3 37.0 - 47.0 % [facility] Mean Corpuscular Volume 82.1 80.0 - 98.0 fL [facility] Mean Corpuscular Hemoglobin 26.6(L) 27.0 - 33.0 pg [facility] Mean Corpuscular HGB Conc 32.4 31.0 - 35.0 g/dl [facility] Red Cell Distribution Width 14.5 11.0 - 16.0 % [facility] Platelet Count 316 160 - 400 X10*3/uL [facility] Mean Platelet Volume 9.8 9.4 - 12.3 fL [facility] Neutrophils Percent Auto 67.5 45 - 73 % [facility] Imm Gran Pct Auto 0.2 0.0 - 0.4 % [facility] Lymphocytes Percent Auto 23.4 20 - 40 % [facility] Monocytes Percent Auto 6.2 2 - 11 % [facility] Eosinophils Percent Auto 1.7 0 - 4 % [facility] Basophils Percent Auto 1.0 0 - 2 % [facility] NRBC Pct Auto 0.0 0.0 - 0.2 /100WBC [facility] Neutrophils Absolute Auto 5.9 2.0 - 8.3 x10*3/uL [facility] Imm Gran Abs Auto 0.02 0.00 - 0.03 X10*3/uL [facility] Lymphocytes Absolute Auto 2.1 1.2 - 4.9 X10*3/uL [facility] Monocytes Absolute Auto 0.5 0.1 - 1.2 X10*3/uL [facility] Eosinophils Absolute Auto 0.2 0.0 - 0.4 X10*3/uL [facility] Basophils Absolute Auto 0.1 0.0 - 0.2 X10*3/uL [facility] NRBC Abs Auto 0.000 0.0 - 0.012 X10*3/uL [facility] 10/02/2024 10:0 0 AM EST 10/02/2024 10:00 AM EST us Generic External Data Provider LAB BLOOD ORDERAB LES Final Result [facility] [address] [place] [phone] * Iron And Total Iron Binding Capacity (10/02/2024 10:00 AM EST) Iron 118 30 - 160 mcg/dL [facility] Total Iron Binding Capacity 416 228 - 428 mcg/dL [facility] Percent Iron Saturation 28 15 - 50 % [facility] Unsaturated Iron Binding 298 ug/dL [facility] 10/02/2024 10:0 0 AM EST 10/02/2024 10:00 AM EST Generic External Data Provider LAB BLOOD ORDERAB LES Final Result Performing Organization Address [facility]/ZIP Co de Phone Number [facility] [address] [place] [phone] * Insulin (10/02/2024 10:00 AM EST) Insulin 19 2 - 29 uU/mL [facility] Comment:This test was perfor med using the Hutchinson chemiluminescentmethod. Values obtained from different assay methods cannot beused interchangeably. This insulin assay shows a possiblecross-reactivity with antibodies generated against insulin(immunoreactive insulin and some patients treated withbovine or porcine insulin). Insulin levels may be measuredlower in patients with insulin autoimmune syndrome orfamilial high pro-insulinemia. 10/02/2024 10:0 0 AM EST 10/02/2024 10:00 AM EST Generic External Data Provider LAB BLOOD ORDERAB LES Final Result Performing Organization Address [facility] Co de Phone Number [facility] [address] [place] [phone] * Zinc (10/02/2024 10:00 AM EST) Zinc 79 60 - 130 mcg/dL [facility] Comment:This test was develo ped and its analytical performancecharacteristics have been determined by [employer] [place], [place]. It hasnot been cleared or approved by the U.S. Food and DrugAdministration. This assay has been validated pursuantto the CLIA regulations and is used for clinicalpurposes.THIS TEST WAS PERFORMED AT:[employer] [place] [address]YWXIETOMANUEL HERNANDEZ MD,PHD 10/02/2024 10:0 0 AM EST 10/02/2024 10:00 AM EST Generic External Data Provider LAB BLOOD ORDERAB LES Final Result Performing Organization Address [facility]/ZIP Co de Phone Number [facility] [address] [place] [phone] * Vitamin A (10/02/2024 10:00 AM EST) Pathologist [facility] Vitamin A (Retinol) 60 38 - 98 mcg/dL [facility] Comment:Vitamin supplementat ion within 24 hours prior toblood draw may affect the accuracy of the results.This test was developed and its analytical performancecharacteristics have been determined by [employer] [place], [place]. It hasnot been cleared or approved by the U.S. Food and DrugAdministration. This assay has been validated pursuantto the CLIA regulations and is used for clinicalpurposes.THIS TEST WAS PERFORMED AT:[employer] [place] [address]IDHOUEAMANUEL HERNANDEZ MD,PHD 10/02/2024 10:0 0 AM EST 10/02/2024 10:00 AM EST Generic External Data Provider LAB BLOOD ORDERAB LES Final Result Performing Organization Address [facility] Co de Phone Number [facility] [address] [place] [phone] * HIV-1/2 Antigen and Antibodies, Fourth Generation, with Reflexes (10/02/2024 10:00 AM EST) Pathologist [facility] HIV AB/AG Nonreactive Nonreactive [facility] Comment:HIV-1 p24 Ag and/or HIV-1/HIV-2 Ab not detected.A test result that is nonreactive does not exclude thepossibility of exposure to or infection with HIV-1 and/orHIV-2. Nonreactive results in this assay for individualswith prior exposure to HIV-1 and/or HIV-2 may be due toantigen and antibody levels that are below the limit ofdetection of this assay.The [employer] HIV Ag/Ab Combo assay result andsupplemental assay results should be interpreted inconjunction with the patient's clinical presentation,history and other laboratory results. If the results areinconsistent with clinical evidence, additional testing issuggested to confirm the result. Blood Venous blood specimen / Unknown 10/02/2024 10:00 AM EST 10/02/2024 10:00 AM EST Colleen Rust MD LAB BLOOD ORDERABLES Final Re sult Performing Organization Address [facility]/ZIP Co de Phone Number [facility] [address] [place] [phone] * C-reactive Protein (10/02/2024 10:00 AM EST) C Reactive Protein 0.44 < or = 0.50 mg/dL [facility] 10/02/2024 10:0 0 AM EST 10/02/2024 10:00 AM EST Generic External Data Provider LAB BLOOD ORDERAB LES Final Result Performing Organization Address [facility] Co de Phone Number [facility] [address] [place] [phone] * (ABNORMAL) Vitamin B1 (10/02/2024 10:00 AM EST) Vitamin B1 7(A) 8 - 30 nmol/L [facility] Comment:Vitamin supplementat ion within 24 hours prior toblood draw may affect the accuracy of the results.This test was developed and its analytical performancecharacteristics have been determined by [employer] [place], [place]. It hasnot been cleared or approved by the U.S. Food and DrugAdministration. This assay has been validated pursuantto the CLIA regulations and is used for clinicalpurposes.THIS TEST WAS PERFORMED AT:[employer]/[id number] [place] [address]FMMWUQEMANUEL HERNANDEZ MD,PHD 10/02/2024 10:0 0 AM EST 10/02/2024 10:00 AM EST us Generic External Data Provider LAB BLOOD ORDERAB LES Final Result Performing Organization Address [facility] Co de Phone Number [facility] [address] [place] [phone] * Hemoglobin A1c (10/02/2024 10:00 AM EST) Hemoglobin A1c 5.8 <6.0 % [facility] Comment:Hemoglobin A1C Refer ence Range Adults: 4.8 - 6.0 % Non diabetic: < 6.0 % Goal: < 7.0 %Additional Action Suggested: > 8.0 %Note: Hemoglobin A1c results are invalid for patients with abnormal amounts of HbF. Blood transfusions may impact the HbA1c concentration in the patient sample. Estimated Average Glucose 120 mg/dL [facility] Comment:eAG = Estimated ave rage glucose which is %A1C expressed asaverage glucose, using the formula of the P1Z-NtmvystEbdpbtz Glucose study (ADAG), Diabetes Care, Vol.31,#8,Mar. 2007 10/02/2024 10:0 0 AM EST 10/02/2024 10:00 AM EST us Generic External Data Provider LAB BLOOD ORDERAB LES Final Result Performing Organization Address [facility] Co de Phone Number [facility] [address] [place] [phone] * Ferritin (10/02/2024 10:00 AM EST) Ferritin 34 10 - 122 ng/mL [facility] 10/02/2024 10:0 0 AM EST 10/02/2024 10:00 AM EST us Generic External Data Provider LAB BLOOD ORDERAB LES Final Result Performing Organization Address [facility] de Phone Number [facility] [address] [place] [phone] * (ABNORMAL) Lipid Panel, Standard (10/02/2024 10:00 AM EST) Triglycerides 103 <150 mg/dL [facility] Comment:Desirable Triglyceri de: less than 150 mg/dLBorderline High Triglyceride 150-199 mg/dLHigh Triglyceride: 200-499 mg/dLVery High Triglyceride: greater than or equal to 5OO mg/dL Cholesterol 168 <200 mg/dL [facility] Comment:Desirable Cholestero l: less than 200 mg/dLBorderline High Cholesterol: 200-239 mg/dLHigh Cholesterol: greater than 239 mg/dL LDL Cholesterol Calculated 102(H) <100 mg/dL [facility] Comment:Desirable LDL: less than 100 mg/dLNear Optimal/Above Optimal LDL: 110- 129 mg/dLBorderline High LDL: 130-159 mg/dLHigh LDL: 160-189 mg/dLVery High LDL: greater than or equal to 190 mg/dL HDL Cholesterol 46 >40 mg/dL [facility] Comment:Desirable HDL: great er than 40 mg/dL Note: This HDL assay may give artificially low results in patients with liver disease. 10/02/2024 10:0 0 AM EST 10/02/2024 10:00 AM EST Generic External Data Provider LAB BLOOD ORDERAB LES Final Result Performing Organization Address [facility] Co de Phone Number [facility] [address] [place] [phone] * (ABNORMAL) Comprehensive Metabolic Panel (10/02/2024 10:00 AM EST) Sodium 136 135 - 145 mmol/L [facility] Potassium 3.4 3.3 - 5.1 mmol/L [facility] Chloride 101 96 - 108 mmol/L [facility] Carbon Dioxide 25 22 - 29 mmol/L [facility] Anion Gap 13 12 - 20 [facility] Urea Nitrogen (BUN) 14 9 - 16 mg/dL [facility] Creatinine, Serum 0.74 0.5 - 1.4 mg/dL [facility] Estimated Glomerular Filt Rate >60 [facility] Comment:Chronic Kidney Disea se: Estimated GFR < 60 mL/min/1.36k8Vrgepr Kidney Disease: Estimated GFR < 15 mL/min/1.73m2 Glucose 116(H) 60 - 115 mg/dL [facility] Calcium 10.3(H) 8.4 - 10.2 mg/dL [facility] Bilirubin, Total 0.5 0.0 - 1.0 mg/dL [facility] Aspartate Amino Transferase 24 5 - 31 U/L [facility] Alanine Aminotransferase 22 0 - 31 U/L [facility] Total Protein 9.2(H) 6.5 - 8.0 g/dL [facility] Albumin Level 4.7 3.5 - 5.0 g/dL [facility] Alkaline Phosphatase 71 39 - 117 U/L [facility] 10/02/2024 10:0 0 AM EST 10/02/2024 10:00 AM EST us Generic External Data Provider LAB BLOOD ORDERAB LES Final Result Performing Organization Address City/State/[facility] Co de Phone Number [facility] [address] [place] [phone] * FL upper GI w air (10/02/2024 9:04 AM EST) Anatomical Region Laterality Modality Body Radiographic Jenise ging 10/02/2024 9:04 AM EST Narrative 10/02/2024 10:45 AM EST ? [facility] ?[address] ?[place] [address] ? Fluoroscopy Report ? Signed ? Patient: Dwyer,Nuria ?MR#: [id number] ?? [id number] ? : 1990 ?Acct:[id number] ? Age/Sex: 33 / F ?ADM Date: 10/02/ ? Loc: HO.XRAY ? Attending Dr: Yesenia KENNEDY ? Ordering Physician: Yesenia eWstfall ?? Date of Service: 10/02/24 ?? Procedure(s): FL upper GI w air ?? Accession Number(s): [id number] ? cc: Lindsey Gramajo DO; Yesenia Westfall ? EXAMINATION: ?? XR FLUOROSCOPY UPPER GI WITH AIR ? CLINICAL INFORMATION: ?? Unspecified abdominal pain ? COMPARISON: ?? None available. ? TECHNIQUE: ?? Routine upper GI contrast study was performed in upright and lying ?? position. ? FINDINGS: ?? Lateral administration of thick barium and effervescent granules is ?? normal propagation bolus from the oral cavity through the pharynx, ?? esophagus into stomach without any evidence of obstruction, narrowing ?? or stricture. ? On placing ??supine and prone the course and peristalsis of the stomach, ?? duodenal bulb and sweep is normal. The mucosal pattern stomach and the ?? duodenum is normal. There is a moderate to large gastroesophageal ?? reflux during the exam and supine view with no hiatal hernia seen. ?? Patient is status post gastric sleeve surgery with a small caliber ?? stomach noted. Gallbladder bladder has been surgically removed with ?? yobany in right upper quadrant. ? FLUOROSCOPY TIME: ?? 1 minute 30 seconds ? DOSE AREA PRODUCT: ?? 1631 uGy-m2 (microgray-meter squared) ? FL/FL upper GI w air ?? IMPRESSION: ?? Status post gastric sleeve surgery with a small stomach noted. ?? Visualized stomach, duodenal bulb and the sweep is normal. ? There is moderate to large gastroesophageal reflux without hiatal ?? hernia. ? Electronically signed by: ??Polo Katerine MD ??10/02/2024 10:42 AM EST RP ? Dictated By: ?Katerine,Polo S MD ? Signed By: ?<Electronically signed by Polo S Katerine, MD in OV> ?10/02/24 1042 ? DD/ 0904 ? TD/TT: 10/02/24 0944 ? Adoption Coordinator: MSM ? Procedure Note Yaneth, Image - 10/02/[address] [address] Fluoroscopy Report Signed Patient: Josh Dwyer#: [id number] : 1990Acct:[id number] Age/Sex: 33 / FADM Date: 10/02/24 Loc: HO.XRAY Attending Dr: Yesenia KENNEDY Ordering Physician: Yesenia Westfall Date of Service: 10/02/24 Procedure(s): FL upper GI w air Accession Number(s): [id number] cc: Lindsey Gramajo DO; Yesenia Westfall EXAMINATION: XR FLUOROSCOPY UPPER GI WITH AIR CLINICAL INFORMATION: Unspecified abdominal pain COMPARISON: None available. TECHNIQUE: Routine upper GI contrast study was performed in upright and lying position. FINDINGS: Lateral administration of thick barium and effervescent granules is normal propagation bolus from the oral cavity through the pharynx, esophagus into stomach without any evidence of obstruction, narrowing or stricture. On placing supine and prone the course and peristalsis of the stomach, duodenal bulb and sweep is normal. The mucosal pattern stomach and the duodenum is normal. There is a moderate to large gastroesophageal reflux during the exam and supine view with no hiatal hernia seen. Patient is status post gastric sleeve surgery with a small caliber stomach noted. Gallbladder bladder has been surgically removed with yobany in right upper quadrant. FLUOROSCOPY TIME: 1 minute 30 seconds DOSE AREA PRODUCT: 1631 uGy-m2 (microgray-meter squared) FL/FL upper GI w air IMPRESSION: Status post gastric sleeve surgery with a small stomach noted. Visualized stomach, duodenal bulb and the sweep is normal. There is moderate to large gastroesophageal reflux without hiatal hernia. Electronically signed by: Polo Garcias MD 10/02/2024 10:42 AM [facility] Dictated By: Polo Garcias MD Signed By: <Electronically signed by Polo Garcias MD in OV> 10/02/24 1042 DD/ 0904 TD/TT: 10/02/24 0944 Adoption Coordinator: DAR[facility] External Provider IMG FLU OROSCOPY PROCEDURES Final Result * (ABNORMAL) POCT Urinalysis (09/30/2024 3:08 PM [...] CARE TEST ENTER/EDIT ORDERABLES Final Result * (ABNORMAL) Bacterial Vaginosis (09/30/2024 3:00 PM EST) Only the most recent of2 resultswithin the time period is included. TRICHOMONAS VAGINALIS DETECTION BY PCR NOT DETECTED Not Detect [facility] BACTERIAL VAGINOSIS DETECTION BY PCR POSITIVE(A) Negative [facility] Comment:The BV organism targ ets of the Xpert Xpress MVP test can becommensal in women; Xpert Xpress MVP positive results forbacterial vaginosis should be considered in conjunction withother clinical and patient information to determine thedisease status. Organisms that are not detected by the XpertXpress MVP test have also been reported to be associatedwith BV and aerobic vaginitis.The Xpert Xpress MVP test performance has not been evaluatedin patients under the age of 14. KELLY GROUP DETECTION BY PCR DETECTED(A) Not Detect [facility] Kelly glab krusei PCR NOT DETECTED Not Detect [facility] Swab Vaginal structure / Unknown 09/30/2024 3:00 PM EST 09/30/2024 5:56 PM EST Colleen Rust MD LAB MICROBIOLOGY - GENERAL OR DERABLES Final Result [facility] [address] [place] [phone] * Chlamydia/N. Gonorrhoeae RNA, TMA, Urogenitial (09/30/2024 3:00 PM EST) CT PCR NOT DETECTED Not Detect. [facility] Comment:A not detected test [...] psychologicalconsequences. NG PCR NOT DETECTED Not Detect. [facility] Comment:A not detected test [...] lead to adverse medical, social or psychologicalconsequences. Swab (Vaginal Swab) 09/30/2024 3:00 PM EST 09/30/2024 5:56 PM EST Narrative [facility] - 10/01/2024 2:11 AM EST Vaginal us Colleen Rust MD LAB MICROBIOLOGY - GENERAL OR DERABLES Final Result [facility] [address] [place] [phone] * Albumin, Random Urine W/Creatinine (07/22/2024 10:05 AM EST) Creatinine, Urine 309.91 mg/dL [facility] Microalbumin Urine 29.0 mg/L [facility] Microalbum Creatinine Ratio Ur 9.3 <30 ug/mg cr [facility] Comment:Albumin/Creatinine R atio Reference Ranges: Normal: < 30 ug/mg creatinine Microalbuminuria: 30 - 300 ug/mg creatinineClinical Albuminuria: > 300 ug/mg creatinine Urine (Urine, Random) 07/22/2024 10:05 AM EST 07/22/2024 11:28 AM EST Lindsey Gramajo DO LAB URINE ORDERABLES Final R esult Performing Organization Address [facility]/ZIP Co de Phone Number [facility] [address] [place] [address] [phone] * Hepatitis C Antibody with Reflex to HCV, RNA, Quantitative, Real-Time PCR (07/22/2024 10:05 AM EST) Hepatitis C Antibody Nonreactive Nonreactive [facility] Comment:Antibodies to HCV no t detected; does not exclude early acuteHCV infection. Blood Venous blood specimen / Unknown 07/22/2024 10:05 AM EST 07/22/2024 11:44 AM EST Lindsey Gramajo DO LAB BLOOD ORDERABLES Final R esult Performing Organization Address City/[facility]/ZIP Co de Phone Number [facility] [address] [place] [address] [phone] from Last 3 Months or Most Recently Relevant to Health Maintenance [facility] * Guarantor: Nuria Dwyer Account Type Relation to Patient Date of Phone Billing Address Personal/Family Self [address] [place] Care Teams Shift Supervisor Rn Relationship Specialty Start Date End Date Lindsey Gramajo DO [address] [place] [address] PCP - General Family Medicine 05/22/24
--- OUTSIDE RECORDS SUMMARY | 2024-11-04 16:52 | XMS_ITS | Encounter Summary ---
Author Organization [employer] Address [address] [facility] [place] [address] Care Team Providers Care Elevator Runner Name Role Phone Avila Lindsey Primary Care Provider [phone] Encounter Details Date Type Department Care Team ([facility] st Contact Info) Description 10/30/2024 Telephone [facility] [address] [place] [address] Josephine Lawson, OD [address] [place] [address] Social History Tobacco Use Types Packs/Day Years [...] on file documented as of this encounter Visit Diagnoses Not on filedocumented in this encounter Additional Health Concerns Assessment Noted Time PHQ-9 Depression Total Score: 14 024 3:31 PM EST documented as of this encounter Care Teams Elevator Runner Relationship Specialty Start Date End Date Lindsey Gramajo DO [address] [place] [address] PCP - General Family Medicine 05/22/24 documented as of this encounter
--- OUTSIDE RECORDS SUMMARY | 2024-11-04 16:52 | XMS_ITS | Encounter Summary ---
Author Organization [employer] [facility] Address [address] [place] [address] 7t [place] [address] Care Team Providers Care Sign Hanger Name Role Phone Elina Cohen Primary Care Provider [phone] Zuleika Baltazar MD Primary Care Provide r Lindsey Gramajo DO Primary Care Provider [phone] Reason for Visit * Reason Onset Date Comments Nurse Triage 02/05/2024 Encounter Details Date Type Department Care Team (Late st Contact Info) Description 02/05/2024 Telephone [facility] [address] [place], [place] [phone] Elina Cohen FNP [address] [place] [address] Nurse Triage Social History Tobacco Use Types [...] at time of call. Patient advised of [facility] hours and availability for today and tomorrow at time of call. Triage nurse informed the patient may have a wait of 1-2 hours because Walk In [facility] may have delays from patient???s walking in with urgent medical needs. Insurance verified at time of call. Team tasked to review with PCP but patient advised to present to [facility] after work. Protocol Used: Urine - [...] documented in this encounter Plan of Treatment Not on file documented as of this encounter Visit Diagnoses Not on filedocumented in this encounter Additional Health Concerns Assessment Noted Time PHQ-9 Depression Total Score: 15 01/07/ 024 1:53 PM EDT documented as of this encounter Care Teams Sign Hanger Relationship Specialty Start Date End Date Botas, Elina, ELECTRICAL TEST TECHNICIAN [address] [place] [address] PCP - General Family Medicine 03/06/23 04/28/24 Zuleika Baltazar MD [address] [place], [place] [phone] PCP - General Internal Medicine 04/29/24 05/21/24 Lindsey Gramajo DO [address] [place], [place] [phone] PCP - General Family Medicine 05/22/24 documented as of this encounter
--- OUTSIDE RECORDS SUMMARY | 2024-11-04 16:52 | XMS_ITS | Encounter Summary ---
Author Organization [employer] [facility] Address [address] [place] [address] 7t [place] [address] Care Team Providers Care Assistant Program Manager Name Role Phone Alfonso FigueroaP Primary Care Provider Brittany Sam [facility] Primary Care Provider [phone] Elina Cohen [facility] Primary Care Provider [phone] Zuleika Baltazar MD Primary Care Provide r Lindsey Gramajo DO Primary Care Provider [phone] Encounter Details Date Type Department Care Team (Late st Contact Info) Description 09/14/2022 Abstract [facility] [address] [place] [address] Provider, MD Cesar Social History Tobacco Use [...] on filedocumented in this encounter Care Teams Assistant Program Manager Relationship Specialty Start Date End Date Alfonso Figueroa FNP PCP - General 07/18/22 10/25/22 Brittany Almanza, HOST AND HOSTESS PCP - General Family Medicine 10/26/22 03/05/23 Elina Cohen FNP [address] [place] [address] PCP - General Family Medicine 03/06/23 04/28/24 Zuleika Baltazar MD [address] [place] [address] PCP - General Internal Medicine 04/29/24 05/21/24 Lindsey Gramajo DO [address] [place] [address] PCP - General Family Medicine 05/22/24 documented as of this encounter
--- OUTSIDE RECORDS SUMMARY | 2024-11-04 16:52 | XMS_ITS | Encounter Summary ---
Author Organization [employer] Address [address] [facility] 7t [place] [address] Care Team Providers Care Mucking Machine Operator Name Role Phone Lindsey Gramajo DO Primary Care Provider [phone] Reason for Visit * Reason Onset Date Comments Recall Letter 10/30/2024 Recall Letter se nt 10/30/24. Encounter Details Date Type Department Care Team ([facility] st Contact Info) Description 10/30/2024 Telephone [facility] [address] [place] [address] Lindsey Gramajo DO [address] [place] [address] Recall Letter (Recall Letter sent 10/30/24.) Social History Tobacco Use Types Packs/Day Years [...] encounter Miscellaneous Notes * Telephone Encounter - Maryam Nicholas MA - 10/30/2024 11:44 AM EST .Telephone call to patient to schedule a recall appointment. No answer, Left voicemail to return call to clinic.. Recall letter sent. Visit type: Follow up Appointment notes: Chronic conditions Month due: October With: Jessica Please schedule appointment above if patient returns call documented in this encounter Plan of Treatment Not on file documented as of this encounter Visit Diagnoses Not on filedocumented in this encounter Additional Health Concerns Assessment Noted Time PHQ-9 Depression Total Score: 14 024 3:31 PM EST documented as of this encounter Care Teams Mucking Machine Operator Relationship Specialty Start Date End Date Lindsey Gramajo DO [address] [place] [phone] PCP - General Family Medicine 05/22/24 documented as of this encounter
== END 2024-11-04 14:47 | disposition home or self-care (01) ==
LOC: HO.HBS 13:52
PROVIDERS: PCP Family Medicine; Visit Provider Physician Assistant Surgical
DX: E66.811 Obesity, class 1 (principal); Z68.34 Body mass index [BMI] 34.0-34.9, adult; Z90.3 Acquired absence of stomach [part of]; Z98.84 Bariatric surgery status
CPT/HCPCS: 99213

== ENCOUNTER → 2024-11-04 13:51 | Outpatient (BNVA) | payer MEDICAID, SELFPAY | PROVIDERS: PCP Family Medicine; Visit Provider Physician Assistant Surgical | DX: E66.811 Obesity, class 1 (principal); Z68.34 Body mass index [BMI] 34.0-34.9, adult; Z90.3 Acquired absence of stomach [part of] | CPT/HCPCS: 99212 ==

== ENCOUNTER 2024-12-29 14:12 | Outpatient (AMB) | payer MEDICAID, SELFPAY ==
--- NOTE | 2024-12-29 14:17 | MHC.OFFVIS ---
Vital Signs 12/29/24 14:21 Height 5 ft 5 in Weight 204 lb BMI 33.9 BP 138/88 Blood Pressure Location Rt brachial Position Sitting Pulse 80 Pulse Source Pulse Oximeter Pulse Oximetry (%) 98 Oxygen Delivery Method Room Air Intake Visit Reasons: consult mucus in stool Intake Note: NEW PATIENT for initial eval of fecal abn. Prior hx of colo/egd? N Chief Complaint; C/O epigastric pain, GERD sx, loose + oily stools, mucus in stool. Pt denies any hematochezia/melena. No additional sx at this time. PPI is not as effective as it had been previously. Spray I Painter Required: No Accompanied by: Self / Same As Patient Allergies doxycycline [DOXYCYCLINE] Allergy (Intermediate, Verified 12/29/24 14:21) RASH/HIVES Penicillins Allergy (Unknown, Verified 12/29/24 14:21) Unknown HPI HPI consult mucus in stool: Details: 34-year-old female with past medical history of PCOS, obesity, status post laparoscopic sleeve gastrectomy, intestinal malabsorption following gastrectomy, GERD, status post cholecystectomy is here today for initial consultation. Patient had laparoscopic sleeve gastrectomy in March [address] Proctor. Patient has been following with bariatric services since. Patient is following with them in regards to diet. Patient reports that she is on a strict diet plan and is doing mostly shakes. Patient reports that she would like to introduce different food into her diet as she is craving normal food. Patient was sent by bariatric services for barium swallow that showed moderate reflux, otherwise normal. Patient is taking pantoprazole as needed. Patient reports that sometimes where her reflux is severe she will take 2 doses total of 80 mg with only minimal effect. Patient admits that she eats other food. Would like to try to eat regular food only smaller portions. Patient reports frequent abdominal bloating. Reports postprandial loose stools and sometimes her stools are watery or sticking to the toilet with mucus. Denies melena, hematochezia, unintentional weight loss or ribbon like stools. Reports occasional dyspepsia without dysphagia or odynophagia. Patient denies nausea or vomiting [facility] Medical History PCOS (polycystic ovarian syndrome) Intestinal malabsorption following gastrectomy Overweight (BMI 25.0-29.9) Surgical History Hx of breast augmentation S/P laparoscopic sleeve gastrectomy History of sleeve gastrectomy Hx of carpal tunnel repair Hx of cholecystectomy Family History Father No problems noted. Mother High cholesterol Diabetes mellitus CVD (cardiovascular disease) Arthritis Brother Overdose Brother No problems noted. Sister No problems noted. Daughter No problems noted. 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 [employer] Sexual orientation: Straight/Heterosexual Gender identity: Female Female Reproductive History Menstrual Age of Menarche: 8 Review of Systems Const Denies weight gain and Denies weight loss ENT Reports no additional complaints, Denies dysphagia and Denies odynophagia Card Reports no additional complaints Resp Reports no additional complaints GI Reports abdominal pain (Epigastric), Denies belching, Denies melena, Reports bloating, Denies change in bowel habits, Reports constipation, Denies dysphagia, Denies excessive flatus, Denies dyspepsia, Reports heartburn, Denies diarrhea, Reports loose stools, Denies nausea, Denies odynophagia and Denies vomiting Reports no additional complaints Musc Reports no additional complaints Neuro Reports no additional complaints Psych Reports no additional complaints Endo Reports no additional complaints Physical Exam Const General: healthy appearing and no acute distress Nutritional Appearance: well nourished and obese Orientation/consciousness: patient oriented x3 Resp Effort & Inspection: normal respiratory effort, able to speak in complete sentences, no tracheal deviation and symmetric chest movement Auscultation: clear to auscultation bilaterally Cardio Rate: regular rate GI Inspection: Yes normal to inspection and No distended Palpation (GI): Soft to palpation, not firm, nontender and No hepatosplenomegaly present Auscultation: normal bowel sounds General: Yes no CVA tenderness Back/Spine/Pelvis Back: no CVA tenderness Skin General skin exam: elasticity normal, turgor normal and dry skin Neuro General: patient oriented x3 Psych Appearance: grossly normal Mental Status: mental status grossly normal Results Reviewed Results Reviewed: Laboratory Tests 10/02/24 10:00 Vitamin A 60 Vitamin B1 7 L Vitamin B12 248 25-OH Vitamin D Total 28.8 L Folate 12.5 TSH 3.19 BARIUM SWALLOW SEPTEMBER OF 2024 FINDINGS: Lateral administration of thick barium and effervescent granules is normal propagation bolus from the oral cavity through the pharynx, esophagus into stomach without any evidence of obstruction, narrowing or stricture. On placing supine and prone the course and peristalsis of the stomach, duodenal bulb and sweep is normal. The mucosal pattern stomach and the duodenum is normal. There is a moderate to large gastroesophageal reflux during the exam and supine view with no hiatal hernia seen. Patient is status post gastric sleeve surgery with a small caliber stomach noted. Gallbladder bladder has been surgically removed with yobany in right upper quadrant. FLUOROSCOPY TIME: 1 minute 30 seconds DOSE AREA PRODUCT: 1631 uGy-m2 (microgray-meter squared) FL/FL upper GI w air IMPRESSION: Status post gastric sleeve surgery with a small stomach noted. Visualized stomach, duodenal bulb and the sweep is normal. There is moderate to large gastroesophageal reflux without hiatal hernia. Electronically signed by: Polo Garcias MD 10/02/2024 10:42 AM [facility] [place] Assessment & Plan Assessment & Plan (1) Abdominal pain: Code(s): R10.9 - Unspecified abdominal pain Category: Medical Qualifiers: Abdominal location: epigastric Qualified Code(s): R10.13 - Epigastric pain (2) Intestinal malabsorption following gastrectomy: Code(s): K91.2 - Postsurgical malabsorption, not elsewhere classified; Z90.3 - Acquired absence of stomach [part of] Category: Medical (3) S/P laparoscopic sleeve gastrectomy: Comment: DOS 04/15/19, Dr. Proctor Code(s): Z98.84 - Bariatric surgery status Category: Surgical (4) Postprandial diarrhea: Code(s): K52.9 - Noninfective gastroenteritis and colitis, unspecified (5) Postprandial epigastric pain: Code(s): R10.13 - Epigastric pain Plan Discussed with patient the importance of taking PPIs before meals in order for it to work. She does have a significant reflux seen on barium swallow. Patient will start taking pantoprazole every morning half an hour before breakfast. Continue avoiding dietary triggers and late night snacking. Patient reports abdominal bloating and epigastric pain postprandially. Will check lipase, transglutaminase and H pylori. Discussed with patient low FODMAP diet. List of food recommended as well as list of food to avoid given to patient. Patient should avoid food high in fiber, however to help her with bulking bowels she can try fiber gummies 1 a day and drinks fluids. Avoid lactose. Follow-up in 3-4 months, sooner on as needed basis. She is agreeable to this plan and verbalizes understanding of instructions. She was given the opportunity to ask questions and all questions answered. Thank you for allowing me to participate in her care Orders: Orders Lipase Today R10.9 - Unspecified abdominal pain Fecal Fat Qualitative Today R19.7 - Diarrhea, unspecified Transglutaminase IgA Today R10.9 - Unspecified abdominal pain H pylori Ag Stool Today K21.9 - Gastro-esophageal reflux disease without esophagitis Coding Level of Care Code New Pt Level 4 (48654) Diagnoses Epigastric pain R10.13 Abdominal location: epigastric Intestinal malabsorption following gastrectomy K91.2; Z90.3 S/P laparoscopic sleeve gastrectomy Z98.84 Postprandial diarrhea K52.9 Postprandial epigastric pain R10.13 Time Spent (min) 50 Comment 35 minutes spent with patient and additional 15 minutes spent reviewing her records
[2024-12-29 14:21] VITALS: BP 138/88; PULSE 80; O2SAT 98; BMI 33.9
--- OUTSIDE RECORDS SUMMARY | 2024-12-29 15:46 | XMS_ITS | Encounter Summary ---
Author Organization [employer] [facility] Address [address] [facility] 7t [place] [address] Care Team Providers Care Medical Practice Manager Name Role Phone Alfonso FigueroaP Primary Care Provider Brittany Sam [facility] Primary Care Provider [phone] [facility] Primary Care Provider [phone] Zuleika Baltazar MD Primary Care Provide r Lindsey Gramajo DO Primary Care Provider [phone] Encounter Details Date Type Department Care Team (Late st Contact Info) Description 09/14/2022 Abstract [facility] [address] [place] [address] Provider, MD Cesar Social History Tobacco Use [...] on filedocumented in this encounter Care Teams Medical Practice Manager Relationship Specialty Start Date End Date Alfonso Figueroa FNP PCP - General 07/18/22 10/25/22 Brittany Almanza, MANAGER SUBWAY PCP - General Family Medicine 10/26/22 03/05/23 Elina Cohen FNP [address] [place] [address] PCP - General Family Medicine 03/06/23 04/28/24 Zuleika Baltazar MD [address] [place] [address] PCP - General Internal Medicine 04/29/24 05/21/24 Lindsey Gramajo DO [address] [place] [address] PCP - General Family Medicine 05/22/24 documented as of this encounter
--- OUTSIDE RECORDS SUMMARY | 2024-12-29 15:46 | XMS_ITS | Encounter Summary ---
Author Organization Formerly [facility] Address [address] [place] [id number] Care Team Providers Care Business Coordinator Name Role Phone Pcp, No Primary Care Provider Unavailabl e Encounter Details Date Type Department Care Team ([facility] st Contact Info) Description 11/01/2020 Lab Requisition [place] COVID-19 Testing [facility] [address] [place] [address] Carlos Cerda MD [address] [place], [place] [id number] Encounter for laboratory testing for COVID-19 virus [...] of Binge Drinking Not on file 12/2020 Comments No Sex and Gender Information Value Date Recorded Sex Assigned at Not on file Legal Sex Female 6:41 PM EST Gender Identity Not on file Sexual Orientation [...] in this encounter Results * COVID-19 RT-PCR ([facility]) (11/01/2020 1:19 PM EST) COVID-19 RT-PCR SARS-COV-2 NOT DETECTED Not Detected 11/02/2020 9:00 PM EST [facility] Comment: ADDITIONAL INFORMATION The ANALI COVID-19 RT-PCR Assay is Real-Time Reverse Career Development Manager Polymerase Chain Reaction (senior staff psychologist-PCR) for the in vitro qualitative detection of three SARS-Cov-2 target sequences unique to the coronavirus disease 2019 (COVID-19). This is an Emergency Use Authorization (EUA) in vitro diagnostic (IVD) test that has been modified to include the [employer] automated liquid handler. Its analytical performance characteristics have been determined by the cork grinder and verified by [facility] in a manner consistent with CLIA [...] at the following links: For Healthcare Providers: https://www.fda.gov/media/314875/download For Patients: https://www.fda.gov/media/422908/download TEST INTERPRETATION Data analysis and interpretation is performed using the [employer] COVID-19 Interpretive Software. SARS-CoV-2 Not Detected: negative [...] included for positive specimens. As per the [employer] COVID-19 Combo Kit EUA documentation, each COVID target with a Ct value of <=37 is called Detected. Please note: The ANALI COVID-19 RT-PCR Assay is a qualitative test, [...] quarantine. For more information please refer to: https://www.cdc.gov/coronavirus/2019-ncov/lab/faqs.html#Inhuthtypkpz-Qcbhpwv-sn- Diagn ostic-Tests TEST LIMITATIONS Positive results are [...] system. For further details refer to the [employer] TaqPath COVID-19 Combo Kit EUA submission (https://www.fda.gov/media/270060/download). ----- Test performed by [facility] for [facility], [address] [place] [id number] CLIA# [id number] ?[id number] ? Bradley Gallo M.D., Ph.D., [facility], Clinical Vegetable Farmer Microbiology Nasopharyngeal swab / Unknown 11/01/2020 1:19 PM EST 11/01/2020 1:19 PM EST Narrative [facility] - 11/02/2020 9:00 PM EST Performed at [facility], [address] [place] [address], [place] Lic [id number], CLIA [id number] us Carlos Cerda MD MICROBIOLOGY - GENERAL ORDERABLE S Final Result [address] [id number] documented in this encounter Visit Diagnoses Diagnosis Encounter for laboratory testing for COVID-19 virus documented in this encounter Care Teams Business Coordinator Relationship Specialty Start Date End Date Pcp, No PCP - General General Medicine 10/22/20 documented as of this encounter
--- OUTSIDE RECORDS SUMMARY | 2024-12-29 15:46 | XMS_ITS | Clinical Summary ---
Author Organization Formerly [facility] Address [address] [place] [id number] Care Team Providers Care Anatomy Teacher Name Role Phone Pcp, No Primary Care Provider Unavailabl e Allergies Active Allergy Reactions Criticality Noted Date Comments Doxycycline Hives Medium 10/29/2020 Medications melatonin 3 MG Tab tablet Take 3 [...] series) 2008 Pap Smear (Ages 21-65) 2010 COVID-19 Vaccine (1 - 2023-2 5 season) 2024 Influenza Vaccine 03/27/2025 HPV Vaccines Aged Out No longer eligi ble based on patient's age to complete this topic Pneumococcal Vaccine: Pediat jackie (0-5 Years) and At-Risk Patients (6 to 49 Years) Aged Out No longer eligible b ased on patient's age to complete this topic Medical Devices Implanted Type Area Smoking Pipe Coater Device Identifier Shelf Expiration Date Model / Serial / Lot Natrelle Inspira Cohesive Breast Implant Implanted:Qty: 1 on 11/05/2020 by Carlos Cerda MD at [facility] Breast Right: Breast [employer] 11/05/2024 [id number] / [id number] / Natrelle Inspira Cohesive Breast Implant Implanted:Qty: 1 on 11/05/2020 by Carlos Cerda MD at [facility] Breast Left: Breast [employer] 05/22/2025 [facility] [id number] / [id number] / [employer] [facility] on file Care Teams Anatomy Teacher Relationship Specialty Start Date End Date Pcp, No PCP - General General Medicine 10/22/20
--- OUTSIDE RECORDS SUMMARY | 2024-12-29 15:46 | XMS_ITS | Clinical Summary ---
Author Organization [employer] Address [address] [facility] [place] [address] Care Team Providers Care Kiln Firer Name Role Phone Avila Lindsey Primary Care Provider Allergies Active Allergy Reactions Criticality Noted Date Comments Doxycycline Hives Medium 03/28/2018 rash Penicillin G 01/03/2024 hives Penicillins 02/11/2020 Medications * This document contains information received from the source organization and may not represent a complete record from that organization. Blood Pressure Monitor kitIndications: Elevated BP without diagnosis of hypertension 1 Units Once per day. 1 kit 12/28/19 24 Active DULoxetine (Cymbalta) [address] capsule Take 1 capsule (20 mg) by mouth Once per day. Do not crush or chew. 30 capsule 1 04/01/20 24 025 Active cetirizine (ZyrTEC) 10 MG tabletIndicatio ns:Acute cough Take 1 tablet (10 mg) by mouth Once per day. 90 tablet 3 06/17/20 24 025 Active QUEtiapine (SEROquel) 25 MG tablet TAKE 1 TABLET EVERY NIGHT FOR SLEEP/MOOD 06/24/20 24 Active Dulaglutide (Trulicity) 0.75 MG/0.5ML solution auto-injector Inject 0.5 mL (0.75 mg) under the skin 1 (one) time per week. 2 mL 3 07/08/20 24 Active triamcinolone (Nasacort) 55 MCG/ACT nasal inhaler Administer 2 sprays into each nostril Once per day. 16.5 g 11 07/08/20 24 025 Active ammonium lactate (Lac-Hydrin) 12 % lotion Apply topically if needed (dry skin on arms). 396 g 3 07/08/20 24 025 Active FREESTYLE LITE test strip Use to test blood sugar 2 times daily 100 each 11 07/08/20 24 025 Active Lancets misc Use to test blood sugar 2 times daily 100 each 11 07/08/20 Active Alcohol Swabs 70 % pads Use to test blood sugar 2 times daily 100 each 07/08/20 24 Active Blood Glucose Monitoring Suppl (FreeStyle [place] Lite) w/Device kit Use to test blood sugar 2 times daily 1 kit 07/08/20 Active albuterol 108 (90 Base) MCG/ACT inhalerIndicati ons:Subacute cough Inhale 2 puffs every 6 (six) hours if needed for wheezing. 18 g 1 09/25/19 25 026 Active famotidine (Pepcid) 20 MG tablet TAKE 1 TABLET (20 MG) BY MOUTH IF NEEDED IN THE MORNING AND AT BEDTIME FOR HEARTBURN. 180 tablet 1 12/19/19 25 026 Active hydroCHLOROthia zide (HYDRODiuril) 25 MG tablet TAKE 1 TABLET BY MOUTH EVERY DAY 90 tablet 1 12/19/19 25 Active hydroCHLOROthia zide (HYDRODiuril) 25 MG tablet Take 1 tablet (25 mg) by mouth Once per day. 90 tablet 06/17/20 24 025 Discontinued(R eorder (will not trigger notification to Pharmacy)) famotidine (Pepcid) 20 MG tablet Take 1 tablet (20 mg) by mouth if needed in the morning and at bedtime for heartburn. 60 tablet 3 07/08/20 24 025 Discontinued Active Problems Problem Noted Date Diagnosed Date [...] intervention , Patient to reach out to [facility] team as needed, Patient to engage in [...] intervention , Patient to reach out to [facility] team as needed, Patient to engage in OP therapy , and Patient to reach out to HC as needed History of anemia 01/03/2024 H/O [...] suggesting possible ischemia (report of EKG from [facility] 11/29/23 normal) and exam with tachycardia [...] Encounters Date Type Department Care Team Description 12/15/2024 Refill [facility] [address] [place] [phone] Elina Cohen FNP 12/15/2024 Refill [facility] [address] [place] [address] Lindsey Gramajo DO 2024 Population Health Risk Score [facility] ([facility] Department [address] [place] [phone] Provider, Population Health Generic 10/30/2024 Telephone [facility] OPTOMETRY [address] [place] [address] Josephine Lawson, OD 10/30/2024 Telephone [facility] MEDICINE [address] [place] [address] Lindsey Gramajo DO Recall Letter (Recall Letter sent 10/30/24.) 10/03/2024 Telephone [facility] MEDIC[facility] [address] [place] [address] Eloise Nicholas RN Results 10/03/2024 Orders Only [facility] MED [facility] PEDS [address] [place], [place] [phone] Colleen Rust MD BV (bacterial vaginosis) (Primary Dx); Vaginal candidiasis 10/02/2024 Orders Only GENERIC EXTERNAL DATA DEPARTMENT Provider, Generic External Data 10/01/2024 Telephone [facility] MEDICINE [address] [place] [phone] Lindsey Gramajo DO Medication Question from Last 3 Months Immunizations Name Administration [...] COVID-19 Vaccine ( season) 2024 10/20/2020, 09/22/2020 Alcohol/Substance Use Screening 03/07/2025 03/07/2024 SDOH Screening [...] AIR Routine 10/02/2024 9:0 4 AM EST HEPATITIS C AB W/REFL TO HCV RNA, [...] 10:00 AM EST) Syphilis Screen Nonreactive Nonreactive [facility] Blood 10/02/2024 10:0 0 AM EST 10/02/2024 10:00 AM EST Colleen Rust MD LAB BLOOD ORDERABLES Final Re sult Performing Organization Address City/[facility]/ZIP Co de Phone Number [facility] [address] [place] [phone] * (ABNORMAL) Vitamin D, 25-Hydroxy, Total, Immunoassay (10/02/2024 10:00 AM EST) Pathologist [facility] Vitamin D 25-OH Total 28.8(L) >30 ng/mL [facility] Comment:Health Based Referen ce Values*< 20 ng/mL Gxfitpank78-64 ng/mL Insufficient> 30 ng/mL Sufficient*Glenis SANCHES. N [...] ORDERAB LES Final Result Performing Organization Address City/[facility]/ZIP Co de Phone Number [facility] [address] [place] [phone] * Vitamin B12 (Cobalamin) and Folate Panel, Serum (10/02/2024 10:00 AM EST) Pathologist [facility] Vitamin B12 248 200 - 900 pg/mL [facility] Comment:NORMAL 200-900 PG/ML INDETERMINATE 160-199 PG/ML DEFICIENT < 160 PG/ML Folate 12.5 > or = 4.0 ng/mL [facility] Comment:Reference Values:> o r = 4.0 ng/mL< 4.0 ng/mL suggests folate deficiency Methotrexate, aminopterin and folinic acid(leucovorin) are chemotherapeutic agents whose molecularstructures are similar to folate; therefore, the Architectfolate assay cannot be used for patients using these drugs. 10/02/2024 10:0 0 AM EST 10/02/2024 10:00 AM EST Generic External Data Provider LAB BLOOD ORDERAB LES Final Result Performing Organization Address [facility]/ZIP Co de Phone Number [facility] [address] [place] [phone] * TSH with Reflex to Free T4 (10/02/2024 10:00 AM EST) TSH reflex Free T4 3.19 0.32 - 4.0 uIU/mL [facility] 10/02/2024 10:0 0 AM EST 10/02/2024 10:00 AM EST Generic External Data Provider LAB BLOOD ORDERAB LES Final Result Performing Organization Address [facility] Co de Phone Number [facility] [address] [place] [phone] * (ABNORMAL) CBC auto differential (10/02/2024 10:00 AM EST) White Blood Count 8.8 4.8 - 10.8 X10*3/uL [facility] Red Blood Count 5.03 4.20 - 5.50 X10*6/uL [facility] Hemoglobin 13.4 12.0 - 16.0 g/dl [facility] Hematocrit 41.3 37.0 - 47.0 % [facility] Mean Corpuscular Volume 82.1 80.0 - 98.0 fL [facility] Mean Corpuscular Hemoglobin 26.6(L) 27.0 - 33.0 pg [facility] Mean Corpuscular HGB Conc 32.4 31.0 - 35.0 g/dl [facility] Red Cell Distribution Width 14.5 11.0 - 16.0 % [facility] Platelet Count 316 160 - 400 X10*3/uL [facility] Mean Platelet Volume 9.8 9.4 - 12.3 fL [facility] Neutrophils Percent Auto 67.5 45 - 73 % [facility] Imm Gran Pct Auto 0.2 0.0 - 0.4 % [facility] Lymphocytes Percent Auto 23.4 20 - 40 % [facility] Monocytes Percent Auto 6.2 2 - 11 % [facility] Eosinophils Percent Auto 1.7 0 - 4 % [facility] Basophils Percent Auto 1.0 0 - 2 % [facility] NRBC Pct Auto 0.0 0.0 - 0.2 /100WBC [facility] Neutrophils Absolute Auto 5.9 2.0 - 8.3 x10*3/uL [facility] Imm Gran Abs Auto 0.02 0.00 - 0.03 X10*3/uL [facility] Lymphocytes Absolute Auto 2.1 1.2 - 4.9 X10*3/uL [facility] Monocytes Absolute Auto 0.5 0.1 - 1.2 X10*3/uL [facility] Eosinophils Absolute Auto 0.2 0.0 - 0.4 X10*3/uL [facility] Basophils Absolute Auto 0.1 0.0 - 0.2 X10*3/uL [facility] NRBC Abs Auto 0.000 0.0 - 0.012 X10*3/uL [facility] 10/02/2024 10:0 0 AM EST 10/02/2024 10:00 AM EST us Generic External Data Provider LAB BLOOD ORDERAB LES Final Result [facility] [address] [place] [phone] * Iron And Total Iron Binding Capacity (10/02/2024 10:00 AM EST) Iron 118 30 - 160 mcg/dL [facility] Total Iron Binding Capacity 416 228 - 428 mcg/dL [facility] Percent Iron Saturation 28 15 - 50 % [facility] Unsaturated Iron Binding 298 ug/dL [facility] 10/02/2024 10:0 0 AM EST 10/02/2024 10:00 AM EST Generic External Data Provider LAB BLOOD ORDERAB LES Final Result Performing Organization Address [facility] de Phone Number [facility] [address] [place] [phone] * Insulin (10/02/2024 10:00 AM EST) [facility] Insulin 19 2 - 29 uU/mL [facility] Comment:This test was perfor med using the [employer] chemiluminescentmethod. Values obtained from different assay methods [...] ORDERAB LES Final Result Performing Organization Address [facility] Co de Phone Number [facility] [address] [place] [phone] * Zinc (10/02/2024 10:00 AM EST) Zinc 79 60 - 130 mcg/dL [facility] Comment:This test was develo ped and its analytical performancecharacteristics have been determined by [employer] [place], [place]. It hasnot been cleared or approved by the U.S. Food and DrugAdministration. This assay has been validated pursuantto the CLIA regulations and is used for clinicalpurposes.THIS TEST WAS PERFORMED AT:[employer] [id number] [place] [id number] HERNANDEZ MD,PHD 10/02/2024 10:0 0 AM EST 10/02/2024 10:00 AM EST Generic External Data Provider LAB BLOOD ORDERAB LES Final Result Performing Organization Address City/[facility]/ZIP Co de Phone Number [facility] [address] [place] [phone] * Vitamin A (10/02/2024 10:00 AM EST) Pathologist [facility] Vitamin A (Retinol) 60 38 - 98 mcg/dL [facility] Comment:Vitamin supplementat ion within 24 hours prior toblood draw may affect the accuracy of the results.This test was developed and its analytical performancecharacteristics have been determined by [employer] [place], [place]. It hasnot been cleared or approved by the U.S. Food and DrugAdministration. This assay has been validated pursuantto the CLIA regulations and is used for clinicalpurposes.THIS TEST WAS PERFORMED AT:[employer] [id number] [place] [address]ZUSKMQTMANUEL HERNANDEZ MD,PHD 10/02/2024 10:0 0 AM EST 10/02/2024 10:00 AM EST Generic External Data Provider LAB BLOOD ORDERAB LES Final Result Performing Organization Address [facility] Co de Phone Number [facility] [address] [place] [phone] * HIV-1/2 Antigen and Antibodies, Fourth Generation, with Reflexes (10/02/2024 10:00 AM EST) Pathologist [facility] HIV AB/AG Nonreactive Nonreactive [facility] Comment:HIV-1 p24 Ag and/or HIV-1/HIV-2 Ab not detected.A test result that is nonreactive does not exclude thepossibility of exposure to or infection with HIV-1 and/orHIV-2. Nonreactive results in this assay for individualswith prior exposure to HIV-1 and/or HIV-2 may be due toantigen and antibody levels that are below the limit ofdetection of this assay.The [employer] HIV Ag/Ab Combo assay result andsupplemental assay results should be interpreted inconjunction with the patient's clinical presentation,history and other laboratory results. If the results areinconsistent with clinical evidence, additional testing issuggested to confirm the result. Blood Venous blood specimen / Unknown 10/02/2024 10:00 AM EST 10/02/2024 10:00 AM EST Colleen Rust MD LAB BLOOD ORDERABLES Final Re sult Performing Organization Address City/[facility]/ZIP Co de Phone Number [facility] [address] [place] [phone] * C-reactive Protein (10/02/2024 10:00 AM EST) [facility] C Reactive Protein 0.44 < or = 0.50 mg/dL [facility] 10/02/2024 10:0 0 AM EST 10/02/2024 10:00 AM EST us Generic External Data Provider LAB BLOOD ORDERAB LES Final Result Performing Organization Address [facility]/ZIP Co de Phone Number [facility] [address] [place] [phone] * (ABNORMAL) Vitamin B1 (10/02/2024 10:00 AM EST) Pathologist [facility] Vitamin B1 7(A) 8 - 30 nmol/L [facility] Comment:Vitamin supplementat ion within 24 hours prior toblood draw may affect the accuracy of the results.This test was developed and its analytical performancecharacteristics have been determined by [employer] [place], [place]. It hasnot been cleared or approved by the U.S. Food and DrugAdministration. This assay has been validated pursuantto the CLIA regulations and is used for clinicalpurposes.THIS TEST WAS PERFORMED AT:[id number] [place] [address]PXXLVKQMANUEL HERNANDEZ MD,PHD 10/02/2024 10:0 0 AM EST 10/02/2024 10:00 AM EST Generic External Data Provider LAB BLOOD ORDERAB LES Final Result Performing Organization Address [facility] Co de Phone Number [facility] [address] [place] [phone] * Hemoglobin A1c (10/02/2024 10:00 AM EST) Hemoglobin A1c 5.8 <6.0 % [facility] Comment:Hemoglobin A1C Refer ence Range Adults: 4.8 - 6.0 % Non diabetic: < 6.0 % Goal: < 7.0 %Additional Action Suggested: > 8.0 %Note: Hemoglobin A1c results are invalid for patients with abnormal amounts of HbF. Blood transfusions may impact the HbA1c concentration in the patient sample. Estimated Average Glucose 120 mg/dL [facility] Comment:eAG = Estimated ave rage glucose which is %A1C expressed asaverage glucose, using the formula of the H5G-WbszmyeAiomowk Glucose study (ADAG), Diabetes Care, Vol.31,#8,Mar. 2007 10/02/2024 10:0 0 AM EST 10/02/2024 10:00 AM EST Generic External Data Provider LAB BLOOD ORDERAB LES Final Result Performing Organization Address [facility] de Phone Number [facility] [address] [place] [phone] * Ferritin (10/02/2024 10:00 AM EST) Ferritin 34 10 - 122 ng/mL [facility] 10/02/2024 10:0 0 AM EST 10/02/2024 10:00 AM EST us Generic External Data Provider LAB BLOOD ORDERAB LES Final Result Performing Organization Address City/[facility]/ZIP Co de Phone Number [facility] [address] [place] [phone] * (ABNORMAL) Lipid Panel, Standard (10/02/2024 10:00 AM EST) Triglycerides 103 <150 mg/dL [facility] Comment:Desirable Triglyceri de: less than 150 mg/dLBorderline High Triglyceride 150-199 mg/dLHigh Triglyceride: 200-499 mg/dLVery High Triglyceride: greater than or equal to 5OO mg/dL Cholesterol 168 <200 mg/dL [facility] Comment:Desirable Cholestero l: less than 200 mg/dLBorderline High Cholesterol: 200-239 mg/dLHigh Cholesterol: greater than 239 mg/dL LDL Cholesterol Calculated 102(H) <100 mg/dL [facility] Comment:Desirable LDL: less than 100 mg/dLNear Optimal/Above Optimal LDL: 110- 129 mg/dLBorderline High LDL: 130-159 mg/dLHigh LDL: 160-189 mg/dLVery High LDL: greater than or equal to 190 mg/dL HDL Cholesterol 46 >40 mg/dL [facility] Comment:Desirable HDL: great er than 40 mg/dL Note: This HDL assay may give artificially low results in patients with liver disease. 10/02/2024 10:0 0 AM EST 10/02/2024 10:00 AM EST us Generic External Data Provider LAB BLOOD ORDERAB LES Final Result Performing Organization Address City/[facility]/ZIP Co de Phone Number [facility] [address] [place] [phone] * (ABNORMAL) Comprehensive Metabolic Panel (10/02/2024 10:00 AM EST) Sodium 136 135 - 145 mmol/L [facility] Potassium 3.4 3.3 - 5.1 mmol/L [facility] Chloride 101 96 - 108 mmol/L [facility] Carbon Dioxide 25 22 - 29 mmol/L [facility] Anion Gap 13 12 - 20 [facility] Urea Nitrogen (BUN) 14 9 - 16 mg/dL [facility] Creatinine, Serum 0.74 0.5 - 1.4 mg/dL [facility] Estimated Glomerular Filt Rate >60 [facility] Comment:Chronic Kidney Disea se: Estimated GFR < 60 mL/min/1.61k8Yrhnys Kidney Disease: Estimated GFR < 15 mL/min/1.73m2 Glucose 116(H) 60 - 115 mg/dL [facility] Calcium 10.3(H) 8.4 - 10.2 mg/dL [facility] Bilirubin, Total 0.5 0.0 - 1.0 mg/dL [facility] Aspartate Amino Transferase 24 5 - 31 U/L [facility] Alanine Aminotransferase 22 0 - 31 U/L [facility] Total Protein 9.2(H) 6.5 - 8.0 g/dL [facility] Albumin Level 4.7 3.5 - 5.0 g/dL [facility] Alkaline Phosphatase 71 39 - 117 U/L [facility] 10/02/2024 10:0 0 AM EST 10/02/2024 10:00 AM EST us Generic External Data Provider LAB BLOOD ORDERAB LES Final Result [facility] [address] [place] [phone] * FL upper GI w air (10/02/2024 9:04 AM EST) Anatomical Region Laterality Modality Body Radiographic Jenise ging 10/02/2024 9:04 AM EST Narrative 10/02/2024 10:45 AM EST ? [place] [facility] ?[address] ?[place] [address] ? Fluoroscopy Report ? Signed ? Patient: Dwyer,Nuria ?MR#: [id number] ?? [id number] ? : 1990 ?Acct:[id number] ? Age/Sex: 33 / F ?ADM Date: 10/02/24 ? Loc: HO.XRAY ? Attending Dr: Yesenia KENNEDY ? Ordering Physician: Yesenia Westfall ?? Date of Service: 10/02/24 ?? Procedure(s): FL upper GI w air ?? Accession Number(s): [id number] ? cc: Lindsey Gramajo DO; Yesenia Westfall [...] ?? hernia. ? Electronically signed by: ??Polo Garcias MD ??10/02/2024 10:42 AM EST RP ? Dictated By: ?Katerine,Polo S MD ? Signed By: ?<Electronically signed by Polo S MD Katerine in OV> ?10/02/24 1042 ? DD/ 0904 ? TD/TT: 10/02/24 0944 ? [employer]: MSM ? Procedure Note Donotuseinterpreter, Image - 10/02/[address] [address] Fluoroscopy Report Signed Patient: Josh Dwyer#: [id number] : 1990Acct:[id number] Age/Sex: 33 / FADM Date: 10/02/24 Loc: HO.XRAY Attending Dr: Yesenia KENNEDY Ordering Physician: Yesenia Westfall Date of Service: 10/02/24 Procedure(s): FL upper GI w air Accession Number(s): [id number] cc: Lindsey Gramajo DO; Yesenia Westfall EXAMINATION: [...] by: Polo Garcias MD 10/02/2024 10:42 AM [facility] Dictated By: Polo Garcias MD Signed By: <Electronically signed by Polo Garcias MD in OV> 10/02/24 1042 DD/ 0904 TD/TT: 10/02/24 0944 [employer]: [facility] External Provider IMG FLU OROSCOPY PROCEDURES Final Result * Albumin, Random Urine W/Creatinine (07/22/2024 10:05 AM EST) Creatinine, Urine 309.91 mg/dL [facility] Microalbumin Urine 29.0 mg/L [facility] Microalbum Creatinine Ratio Ur 9.3 <30 ug/mg cr [facility] Comment:Albumin/Creatinine R atio Reference Ranges: Normal: < 30 ug/mg creatinine Microalbuminuria: 30 - 300 ug/mg creatinineClinical Albuminuria: > 300 ug/mg creatinine Urine (Urine, Random) 07/22/2024 10:05 AM EST 07/22/2024 11:28 AM EST Lindsey Gramajo DO LAB URINE ORDERABLES Final R esult Performing Organization Address City/[facility] Co de Phone Number [facility] [address] [place] [phone] * Hepatitis C Antibody with Reflex to HCV, RNA, Quantitative, Real-Time PCR (07/22/2024 10:05 AM EST) Hepatitis C Antibody Nonreactive Nonreactive [facility] Comment:Antibodies to HCV no t detected; does not exclude early acuteHCV infection. Blood Venous blood specimen / Unknown 07/22/2024 10:05 AM EST 07/22/2024 11:44 AM EST Lindsey Gramajo DO LAB BLOOD ORDERABLES Final R esult Performing Organization Address City/[facility] Co de Phone Number [facility] [address] [place] [phone] from Last 3 Months or Most Recently Relevant to Health Maintenance Insurance * Guarantor: Nuria Dwyer Account Type Relation to Patient Date of Phone Billing Address Personal/Family Self [address] [place] Care Teams Kiln Fire[employer] Relationship Specialty Start Date End Date Lindsey Gramajo DO [address] [place] [address] [place] [address] PCP - General Family Medicine 05/22/24
--- OUTSIDE RECORDS SUMMARY | 2024-12-29 15:46 | XMS_ITS | Encounter Summary ---
Author Organization [facility] Address [address] [place] [address] 7[address] [place] [address] Care Team Providers Care Parlor Chaperone Name Role Phone Elina Cohen Primary Care Provider [phone] Zuleika Baltazar MD Primary Care Provide r Lindsey Gramajo DO Primary Care Provider [phone] Reason for Visit * Reason Onset Date Comments Nurse Triage 02/05/2024 Encounter Details Date Type Department Care Team (Late st Contact Info) Description 02/05/2024 Telephone [facility] MEDICINE [address] [place], [place] [phone] Elina Cohen FNP [address] [place] [address] Nurse Triage Social History Tobacco Use Types [...] at time of call. Patient advised of [facility] hours and availability for today and tomorrow at time of call. Triage nurse informed the patient may have a wait of 1-2 hours because [facility] may have delays from patient???s walking in with urgent medical needs. Insurance verified at time of call. Team tasked to review with PCP but patient advised to present to [facility] after work. Protocol Used: Urine - Blood [...] documented as of this encounter Care Teams Parlor Chaperone Relationship Specialty Start Date End Date Botas, Elina, RETAIL EQUIPMENT ASSOCIATE [address] [place] [address] PCP - General Family Medicine 03/06/23 04/28/24 Zuleika Baltazar MD [address] [place], [place] [phone] PCP - General Internal Medicine 04/29/24 05/21/24 Lindsey Gramajo DO [address] [place], [place] [phone] PCP - General Family Medicine 05/22/24 documented as of this encounter
== END 2024-12-29 14:53 | disposition home or self-care (01) ==
PROVIDERS: PCP Family Medicine; Visit Provider Nurse Practitioner Family
DX: R10.13 Epigastric pain (principal); K91.2 Postsurgical malabsorption, not elsewhere classified; Z90.3 Acquired absence of stomach [part of]; Z98.84 Bariatric surgery status; K52.9 Noninfective gastroenteritis and colitis, unspecified
CPT/HCPCS: 99204

== ENCOUNTER → 2024-12-29 14:12 | Outpatient (BNVA) | payer MEDICAID, SELFPAY | PROVIDERS: PCP Family Medicine; Visit Provider Nurse Practitioner Family | DX: R10.13 Epigastric pain (principal); K91.2 Postsurgical malabsorption, not elsewhere classified; K52.9 Noninfective gastroenteritis and colitis, unspecified; Z98.84 Bariatric surgery status; Z90.3 Acquired absence of stomach [part of] | CPT/HCPCS: 99212 ==

== ENCOUNTER 2025-01-16 14:54 | Outpatient (REF) | payer MEDICAID, SELFPAY ==
--- OUTSIDE RECORDS SUMMARY | 2025-01-16 14:57 | XMS_ITS | Encounter Summary ---
Author Organization [facility] Address [address] [place] [address] Care Team Providers Care Oracle Wms Consultant Name Role Phone Pcp, No Primary Care Provider Unavailabl e Encounter Details Date Type Department Care Team ([facility] st Contact Info) Description 11/01/2020 Lab Requisition [place] COVID-19 Testing [facility] [address] [place] [address] Carlos Cerda MD [address] [place], [place] [phone] Encounter for laboratory testing for COVID-19 virus [...] in this encounter Results * COVID-19 RT-PCR ([facility]) (11/01/2020 1:19 PM EST) COVID-19 RT-PCR SARS-COV-2 NOT DETECTED Not Detected 11/02/2020 9:00 PM EST [facility] Comment: ADDITIONAL INFORMATION The ANALI COVID-19 RT-PCR Assay is Real-Time Reverse Poured Pipe Maker Polymerase Chain Reaction (manager creative services-PCR) for the in vitro qualitative detection of three SARS-Cov-2 target sequences unique to the coronavirus disease 2019 (COVID-19). This is an Emergency Use Authorization (EUA) in vitro diagnostic (IVD) test that has been modified to include the Sensorflare PC automated liquid handler. Its analytical performance characteristics have been determined by the stock holder and verified by [facility] in a manner consistent with CLIA [...] at the following links: For Healthcare Providers: https://www.fda.gov/media/498686/download For Patients: https://www.fda.gov/media/546333/download TEST INTERPRETATION Data analysis and interpretation is performed using the Kutuan COVID-19 Interpretive Software. SARS-CoV-2 Not Detected: negative [...] included for positive specimens. As per the [employer]orm COVID-19 Combo Kit EUA documentation, each COVID [...] quarantine. For more information please refer to: https://www.cdc.gov/coronavirus/2019-ncov/lab/faqs.html#Xktfeuukmelr-Jepzjmz-pf- Diagn ostic-Tests TEST LIMITATIONS Positive results are [...] system. For further details refer to the [employer] TaqPath COVID-19 Combo Kit EUA submission (https://www.fda.gov/media/873045/download). ----- Test performed by [facility], [address] [place] [address] CLIA# [id number] ?[id number] ? Bradley Gallo M.D., Ph.D., [facility], Clinical Movie Operator Microbiology Nasopharyngeal swab / Unknown 11/01/2020 1:19 PM EST 11/01/2020 1:19 PM EST Narrative [facility] - 11/02/2020 9:00 PM EST Performed at [facility], [address] [place] [address], [place] Lic 0695, CLIA [id number] us Carlos Cerda MD MICROBIOLOGY - GENERAL ORDERABLE S Final Result [address] [address] documented in this encounter Visit Diagnoses Diagnosis Encounter for laboratory testing for COVID-19 virus documented in this encounter Care Teams Oracle Wms Consultant Relationship Specialty Start Date End Date Pcp, No PCP - General General Medicine 10/22/20 documented as of this encounter
[2025-01-16 16:59] LABS: Lipase 11 U/L (8-78)
[2025-01-16 17:05] LABS: HCG Quantitative < 2 mIU/mL
[2025-01-20 14:54] LABS: Transglutaminase IgA <1.0 U/mL
== END 2025-01-16 14:55 | disposition home or self-care (01) ==
LOC: HO.HHCL 14:54
PROVIDERS: Nurse Practitioner Family; Visit Provider Nurse Practitioner
DX: N92.6 Irregular menstruation, unspecified (principal); R10.9 Unspecified abdominal pain
CPT/HCPCS: 36415; 83690; 84702; 86364

== ENCOUNTER 2025-03-10 16:40 | Outpatient (REF) | payer MEDICAID, SELFPAY ==
--- OUTSIDE RECORDS SUMMARY | 2025-03-10 16:52 | XMS_ITS | Clinical Summary ---
Author Organization [facility] Address [address] [place] [address] Care Team Providers Care Mica Machine Operator Name Role Phone Pcp, No Primary Care [...] 104 05/19/2021 1:00 PM EDT Temperature 36.5 C (97.7 F) 05/19/2021 11:12 AM EDT Respiratory Rate 13 05/19/2021 1:00 PM EDT [...] this topic Medical Devices Implanted Type Area Windows Server Administrator Device Identifier Shelf Expiration Date Model / Serial / Lot Natrelle Inspira Cohesive Breast Implant Implanted:Qty: 1 on 11/05/2020 by Carlos Cerda MD at [facility] Breast Right: Breast [employer] 11/05/2024 [id number] / [id number] / Natrelle Inspira Cohesive Breast Implant Implanted:Qty: 1 on 11/05/2020 by Carlos Cerda MD at [facility] Breast Left: Breast [employer] 05/22/2025 [id number] / [id number] / Urogyn Urogyn Insurance [facility] on file Care Teams Mica Machine Operator Relationship Specialty Start Date End Date Pcp, No PCP - General General Medicine 10/22/20
--- OUTSIDE RECORDS SUMMARY | 2025-03-10 16:52 | XMS_ITS | Encounter Summary ---
Author Organization [employer] Address [address] [facility] 7[address] [place] [address] Care Team Providers Care Sheep Or Calf Grader Name Role Phone Anupama Gramajofer Primary Care Provider [phone] Encounter Details Date Type Department Care Team (Latest Contact Info) Description 01/21/2025 Results Follow-Up [facility] [address] [place], [place] [phone] Lexi Rodríguez NP [address] [place] [address] Tissue Transglutaminase Antibody, IgA Social History Tobacco Use Types Packs/Day Years [...] documented as of this encounter Care Teams Sheep Or Calf Grader Relationship Specialty Start Date End Date Lindsey Gramajo DO [address] [place] [address] PCP - General Family Medicine 05/22/24 documented as of this encounter
[2025-03-10 20:57] LABS: Bacterial Vaginosis PCR POSITIVE (Negative); Candida Group PCR NOT DETECTED (Not Detect); Candida glab krusei PCR NOT DETECTED (Not Detect); Trichomonas vaginalis PCR NOT DETECTED (Not Detect)
[2025-03-10 22:10] LABS: CT PCR NOT DETECTED (Not Detect.); NG PCR NOT DETECTED (Not Detect.)
== END 2025-03-10 16:41 | disposition home or self-care (01) ==
LOC: HO.HHCLNP 16:40
PROVIDERS: Visit Provider Internal Medicine
DX: N76.1 Subacute and chronic vaginitis (principal); R42 Dizziness and giddiness
CPT/HCPCS: 81515; 87086; 87491; 87591

== ENCOUNTER 2025-06-25 02:29 | Emergency (ER) | payer MEDICAID, SELFPAY ==
--- NOTE | ~2025-06-25 | CT_ITS ---
EXAMINATION: CT HEAD WITHOUT CONTRAST CLINICAL INFORMATION: trauma COMPARISON: May 22, 2017 TECHNIQUE: Contiguous axial imaging was performed from the skull base to vertex without intravenous administration of contrast. This CT examination was performed using dose optimization techniques as appropriate, variously including the following: *Automated exposure control *Adjustment of mA and/or kV according to patient size (this includes techniques or standardized protocols for targeted exams where dose is matched to indication/reason for exam; i.e. extremities or head) *Use of iterative reconstruction technique DLP: 696.50 mGy-cm FINDINGS: No acute cortical disruption in the bony calvarium or the skull base. Skin yobany in the left and right parietal soft tissue scalp with associated subcutaneous emphysema. No acute intracranial hemorrhage, mass effect, midline shift, hydrocephalus or herniation. Pollock-white matter differentiation is normal. Posterior cranial fossa contents demonstrated no acute hemorrhage or mass effect. Normal position of the cerebellar tonsils. Sellar/suprasellar region demonstrated no gross masses. No air-fluid levels in the paranasal sinuses. Poor pneumatization of the frontal sinuses. Tympanic cavities and mastoid cells are aerated. CT/CT cervical spine wo IV con IMPRESSION: No acute fracture, bony calvarium. No acute intracranial hemorrhage. Soft tissue contusion with lacerations, occipital soft tissue scalp. EXAMINATION: CT CERVICAL SPINE WITHOUT CONTRAST CLINICAL INFORMATION: Injury COMPARISON: None available. TECHNIQUE: Contiguous axial images through the cervical spine using 3 mm collimation with bone and soft tissue algorithm. Sagittal and coronal reformatted images acquired. This CT examination was performed using dose optimization techniques as appropriate, variously including the following: *Automated exposure control *Adjustment of mA and/or kV according to patient size (this includes techniques or standardized protocols for targeted exams where dose is matched to indication/reason for exam; i.e. extremities or head) *Use of iterative reconstruction technique DLP: 503.39 mGy-cm FINDINGS: Craniocervical junction is intact with normal position of the occipital condyles and lateral masses of C1. Normal alignment between the vertebral bodies and the facet joints. C1 is intact. C2 is intact. C3 is intact. C4 is intact. C5 is intact. C6 is intact. C7 is intact. No prevertebral compartment hematoma. IMPRESSION: No acute fracture or trauma-related listhesis. Fleischner guidelines were followed. Electronically signed by: Freddie Milner MD 06/25/2025 07:29 AM EDT RP
[2025-06-25 02:39] VITALS: BP 149/95; PULSE 109; RESP 20; TEMP 36.9; O2SAT 97; BMI 34.1
[2025-06-25 03:10] LABS: MANUAL DIFF FLAG NO
[2025-06-25 03:11] LABS: Hematocrit 39.7 % (37.0-47.0); Hemoglobin 12.7 g/dl (12.0-16.0); Imm Gran Abs Auto 0.06 X10*3/uL (0.00-0.03); Imm Gran Pct Auto 0.3 % (0.0-0.4); Lymphocytes Absolute Auto 2.1 X10*3/uL (1.2-4.9); Mean Corpuscular HGB Conc 32.0 g/dl (31.0-35.0); Mean Corpuscular Hemoglobin 25.9 pg (27.0-33.0); Mean Corpuscular Volume 81.0 fL (80.0-98.0); NRBC Abs Auto 0.000 X10*3/uL (0.0-0.012); NRBC Pct Auto 0.0 /100WBC (0.0-0.2); Platelet Count 334 X10*3/uL (160-400); Red Blood Count 4.90 X10*6/uL (4.20-5.50); White Blood Count 17.4 X10*3/uL (4.8-10.8)
[2025-06-25 03:25] LABS: Alanine Aminotransferase 23 U/L (0-31); Albumin Level 4.8 g/dL (3.5-5.0); Alkaline Phosphatase 77 U/L (39-117); Anion Gap 15 (12-20); Aspartate Amino Transferase 27 U/L (5-31); Blood Urea Nitrogen 11 mg/dL (9-16); Calcium 9.4 mg/dL (8.4-10.2); Carbon Dioxide 23 mmol/L (22-29); Chloride 108 mmol/L (96-108); Creatinine Clr Calc Pharmacy 145.0; Estimated Glomerular Filt Rate > 60; Potassium 3.6 mmol/L (3.3-5.1); Sodium 142 mmol/L (135-145); Total Protein 8.2 g/dL (6.5-8.0)
--- OUTSIDE RECORDS SUMMARY | 2025-06-25 03:26 | XMS_ITS | Clinical Summary ---
Author Organization [facility] Address [address] [place] [address] Care Team Providers Care Frontload Driver Name Role Phone Pcp, No Primary Care [...] Pap Smear (Ages 21-65) 2010 Influenza Vaccine 03/27/2025 COVID-19 Vaccine (1 - 2023-2 5 season) 2025 HPV Vaccines (No Doses Required) Completed Pneumococcal Vaccine: Pediat jackie (0-5 Years) and At-Risk Patients (6 to 49 Years) Aged Out No longer eligible b ased on patient's age to complete this topic Medical Devices Implanted Type Area Web Site Manager Device Identifier Shelf Expiration Date Model / Serial / Lot Natlakeishae Inspira Cohesive Breast Implant Implanted:Qty: 1 on 11/05/2020 by Carlos Cerda MD at [facility] Breast Right: Breast [employer] 11/05/2024 [id number] / [id number] / Natrelle Inspira Cohesive Breast Implant Implanted:Qty: 1 on 11/05/2020 by Carlos Cerda MD at [facility] Breast Left: Breast [employer] 05/22/2025 [id number] / [id number] / Urogyn Urogyn Insurance [facility] [employer] on file Care Teams Frontload Driver Relationship Specialty Start Date End Date Pcp, No PCP - General General Medicine 10/22/20
--- OUTSIDE RECORDS SUMMARY | 2025-06-25 03:26 | XMS_ITS | Encounter Summary ---
Author Organization [facility] Address [address] [place] [address] Care Team Providers Care Denture Technician Name Role Phone Pcp, No Primary Care Provider Unavailabl e Encounter Details Date Type Department Care Team ([facility] st Contact Info) Description 11/01/2020 Lab Requisition [place] COVID-19 Testing [facility] [address] [place] [address] Carlos Cerda MD [address] [place], [place] [phone] Encounter for laboratory testing for COVID-19 virus [...] in this encounter Results * COVID-19 RT-PCR ([facility]) (11/01/2020 1:19 PM EST) COVID-19 RT-PCR SARS-COV-2 NOT DETECTED Not Detected 11/02/2020 9:00 PM EST [facility] Comment: ADDITIONAL INFORMATION The ANALI COVID-19 RT-PCR Assay is Real-Time Reverse Field Rep Polymerase Chain Reaction (turkish line attendant-PCR) for the in vitro qualitative detection of three SARS-Cov-2 target sequences unique to the coronavirus disease 2019 (COVID-19). This is an Emergency Use Authorization (EUA) in vitro diagnostic (IVD) test that has been modified to include the [place] automated liquid handler. Its analytical performance characteristics have been determined by the psychiatry resident and verified by [facility] in a manner consistent with CLIA [...] at the following links: For Healthcare Providers: https://www.fda.gov/media/004466/download For Patients: https://www.fda.gov/media/364326/download TEST INTERPRETATION Data analysis and interpretation is performed using the [employer]2Sport COVID-19 Interpretive Software. SARS-CoV-2 Not Detected: negative [...] included for positive specimens. As per the [facility] COVID-19 Combo Kit EUA documentation, each COVID [...] quarantine. For more information please refer to: https://www.cdc.gov/coronavirus/2019-ncov/lab/faqs.html#Dxlswdtqnsyq-Qumcfbc-tm- Diagn ostic-Tests TEST LIMITATIONS Positive results are [...] system. For further details refer to the [employer] TaqPath COVID-19 Combo Kit EUA submission (https://www.fda.gov/media/215357/download). ----- Test performed by [facility], [address] [place] [address] CLIA# [id number] Bradley Gallo M.D., Ph.D., [facility], Clinical First Front Ventilator Microbiology Nasopharyngeal swab / Unknown 11/01/2020 1:19 PM EST 11/01/2020 1:19 PM EST Narrative [facility] - 11/02/2020 9:00 PM EST Performed at [facility], [address] [place] [address], [place], [place], [place] Lic 0695, CLIA [id number] Carlos Cerda MD MICROBIOLOGY - GENERAL ORDERABLE S Final Result [address] [place] [address] documented in this encounter Visit Diagnoses Diagnosis Encounter for laboratory testing for COVID-19 virus documented in this encounter Care Teams Denture Technician Relationship Specialty Start Date End Date Pcp, No PCP - General General Medicine 10/22/20 documented as of this encounter
--- OUTSIDE RECORDS SUMMARY | 2025-06-25 03:26 | XMS_ITS | Encounter Summary ---
Author Organization [employer] Address [address] [facility] [address] [place] [address] Care Team Providers Care Ammunition And Explosives Handler Name Role Phone Alfonso FigueroaP Primary Care Provider Brittany Sam CNC LATHE PROGRAMMER Primary Care Provider Elina Wong Primary Care Provider +- Zuleika Baltazar MD Primary Care Provide r Lindsey Gramajo DO Primary Care Provider [phone] Encounter Details Date Type Department Care Team (Late st Contact Info) Description 09/14/2022 Abstract [facility] MEDICINE [address] [place] [address] Provider, MD Cesar Social History Tobacco Use [...] on filedocumented in this encounter Care Teams Ammunition And Explosives Handler Relationship Specialty Start Date End Date Alfonso Figueroa FNP PCP - General 07/18/22 10/25/22 Brittany Almanza FNP PCP - General Family Medicine 10/26/22 03/05/23 Elina Cohen FNP [address] [place] [address] PCP - General Family Medicine 03/06/23 04/28/24 Zuleika Baltazar MD [address] [place] [address] PCP - General Internal Medicine 04/29/24 05/21/24 Lindsey Gramajo DO [address] [place] [address] PCP - General Family Medicine 05/22/24 documented as of this encounter
--- OUTSIDE RECORDS SUMMARY | 2025-06-25 03:26 | XMS_ITS | Encounter Summary ---
Author Organization [email or web address] Address [address] [facility] [address] [place] [address] Care Team Providers Care Ad Taker Name Role Phone Elina Cohen Primary Care Provider [phone] Zuleika Baltazar MD Primary Care Provide r Lindsey Gramajo DO Primary Care Provider [phone] Reason for Visit * Reason Onset Date Comments Nurse Triage 02/05/2024 Encounter Details Date Type Department Care Team (Late st Contact Info) Description 02/05/2024 Telephone [facility] MEDICINE [address] [place], [place] [phone] Elina Cohen FNP [address] [place], [place] [phone] Nurse Triage Social History Tobacco Use Types [...] at time of call. Patient advised of [facility] hours and availability for today and tomorrow at time of call. Triage nurse informed the patient may have a wait of 1-2 hours because [facility] may have delays from patient???s walking in with urgent medical needs. Insurance verified at time of call. Team tasked to review with PCP but patient advised to present to [facility] after work. Protocol Used: Urine - [...] documented as of this encounter Care Teams Ad Taker Relationship Specialty Start Date End Date Elina Cohen FNP [address] [place] [address] PCP - General Family Medicine 03/06/23 04/28/24 Zuleika Baltazar MD [address] [place], [place] [phone] PCP - General Internal Medicine 04/29/24 05/21/24 Lindsey Gramajo DO [address] [place], [place] [phone] PCP - General Family Medicine 05/22/24 documented as of this encounter
--- OUTSIDE RECORDS SUMMARY | 2025-06-25 03:26 | XMS_ITS | Clinical Summary ---
Author Organization [facility] Address [address] [place] [address] Phone Care Team Providers Care Leasing Assistant Name Role Phone Unavailable Primary Care Provider Unavailabl e Medications No known medications Active Problems Problem Noted Date Diagnosed Date Class 1 obesity 07/25/2024 High blood pressure 07/25/2024 Macromastia 07/25/2024 BMI 37.0-37.9, adult 07/08/2024 Panic disorder 02/05/2024 Anxiety 01/08/2024 Overview (07/25/2024): During IBH Consult Nuria presenting with depressed [...] intervention , Patient to reach out to [facility] team as needed, Patient to engage in OP therapy , and Patient to reach out to [facility] as needed Complicated grief 01/08/2024 Overview (07/25/2024): During IB Consult Nuria presenting with depressed mood, loss [...] intervention , Patient to reach out to [facility] team as needed, Patient to engage in OP therapy , and Patient to reach out to [facility] as needed History of anemia 01/03/2024 H/O gastric sleeve 09/15/2022 Overview (07/25/2024): 2019 Fatty liver 06/30/2021 Essential hypertension 11/21/2018 Vitamin D deficiency 11/21/2018 Cobalamin deficiency 09/20/2017 Polycystic ovarian syndrome 09/17/2015 Social History Tobacco Use Types Packs/Day Years Used Date Smoking Tobacco: Never Assessed Comments Unknown Sex and Gender Information Value Date Recorded Sex Assigned at Not on file Legal Sex Female 8:03 AM EST Gender Identity Not on file Sexual Orientation Not on file Plan of Treatment Not on file Medical Devices Not on file Insurance [facility] C3 ACO [facility] C[facility] C3 ACO Additional Source Comments The information contained in this document represents components of the legal health record. It is not the complete legal health record.[facility]
--- OUTSIDE RECORDS SUMMARY | 2025-06-25 03:26 | XMS_ITS | Clinical Summary ---
Author Organization [employer] Address [address] [facility] [address] [place] [address] Care Team Providers Care Strap Stitcher Name Role Phone Lindsey Gramajo DO Primary Care Provider + [phone] Allergies Active Allergy Reactions Criticality Noted Date Comments Doxycycline Hives Medium 03/28/2018 rash Penicillin G 01/03/2024 hives Penicillins 02/11/2020 Medications * This document contains information received from the source organization and may not represent a complete record from that organization. Blood Pressure Monitor kitIndications:El evated BP without diagnosis of hypertension 1 Units Once per day. 1 kit 4 Active cetirizine (ZyrTEC) 10 MG tabletIndications :Acute cough Take 1 tablet (10 mg) by mouth Once per day. 90 tablet 3 4 Active QUEtiapine (SEROquel) 25 MG tablet TAKE 1 TABLET EVERY NIGHT FOR SLEEP/MOOD 4 Active triamcinolone (Nasacort) 55 MCG/ACT nasal inhaler Administer 2 sprays into each nostril Once per day. 16.5 g 11 4 07/08/20 25 Active ammonium lactate (Lac-Hydrin) 12 % lotion [...] each 4 Active Blood Glucose Monitoring Suppl ([employer] [place] Lite) w/Device kit Use to test blood sugar 2 times daily 1 kit 4 Active albuterol 108 (90 Base) MCG/ACT inhalerIndication s:Subacute cough Inhale 2 puffs every 6 (six) hours if needed for wheezing. 18 g 1 5 09/25/19 26 Active famotidine (Pepcid) 20 MG tablet TAKE 1 TABLET (20 MG) BY MOUTH IF NEEDED IN THE MORNING AND AT BEDTIME FOR HEARTBURN. 180 tablet 1 5 12/19/19 26 Active pantoprazole (ProtoNix) 40 MG EC tablet Take 1 tablet by mouth Once per day. 5 Active Vit-Fe Fumarate-FA ( Vitamins) 27-0.8 MG tablet Take 1 tablet/day 90 each 3 5 Active Active Problems Problem Noted Date Diagnosed Date Lightheadedness 03/10/2025 Assessment & Plan (03/10/2025 3:57 PM EDT): Most likely combination of new diagnosis of , dehydration, high blood sugars and possibly uncontrolled hypertension Discussed all diagnoses with patient and POC, she agreed with it. Follow-up with PCP in 2 weeks Missed period 03/10/2025 Assessment & Plan (03/10/2025 3:50 PM EDT): Patient is Subacute vaginitis 03/10/2025 Assessment & Plan (03/10/2025 3:50 PM EDT): S/S consistent with BV, however during new diagnosis , rule out candidiasis, follow-up results of vaginal swab Less than 8 weeks gestation of 025 Assessment & Plan (03/10/2025 3:53 PM EDT): Results of test discussed with patient. We discussed about option for this , she will call back for [facility] [employer] [employer] referral if needed, she will call her regular [facility] [employer] [employer] to see when she needs to be seen. She is not taking any medication at this time, I we will start her on vitamins and advised her to follow-up with [facility] [employer] as soon as she can as this will be a high risk due to hypertension and diabetes. Advised her regarding proper hydration, sleep well and continue life as tolerated, she will return to clinic or ED as needed if she develops vaginal bleeding, severe abdominal pain, fever or any UTI symptoms Vitamin B1 deficiency 03/10/2025 Assessment & Plan (03/10/2025 3:55 PM EDT): Most likely related to lack of vitamin supplementation status post bariatric surgery. Will start vitamins and follow-up B1 levels in 6 months, replenish as needed Family history of Crohn's disease 09/25/2024 Overview [...] Patient to reach out to [facility] team as needed, Patient to engage [...] Patient to reach out to [facility] team as needed, Patient to engage in OP therapy , and Patient to reach out to [facility] as needed History of anemia 01/03/2024 H/O gastric sleeve 09/15/2022 Overview (09/15/2022): 2019 Fatty liver 06/30/2021 Essential hypertension 11/21/2018 Assessment & Plan (03/10/2025 3:54 PM EDT): Uncontrolled today, she is off medications. Will follow-up in 1 or 2 weeks with PCP for BP and medication adjustment Assessment & Plan (06/05/2023 10:46 AM EDT): Varun elevated, patient reports is always good at home I advise to monitor and f/u with PCP Vitamin D deficiency 11/21/2018 Cobalamin deficiency 09/20/2017 Polycystic ovarian syndrome 09/17/2015 Comments Yes Resolved Problems Problem Noted Date Diagnosed Date [...] suggesting possible ischemia (report of EKG from [facility] 11/29/23 normal) and exam with tachycardia and clear lung exam, recommend ER. Pt refuses ambulance but agrees to go to ER now. Tinea cruris 06/05/2023 07/08/2024 Vaginal discharge 06/05/2023 07/08/2024 Missed period 06/05/2023 07/08/2024 Positive test 09/20/2022 06/0 12/2022 Overview (09/20/2022): LMP 08/19/22 DIOR 05/26/2023 Chapped skin 09/20/2017 07/08/2024 Iron deficiency anemia 07/27/201707/08 Obesity 09/17/2015 07/08/2024 Encounters Date Type Department Care Team Description 06/25/2025 Orders Only GENERIC EXTERNAL DATA DEPARTMENT Provider, Generic External Data 04/09/2025 Telephone [facility] [address] [place] [address] Lindsey Gramajo, DO Results 03/27/2025 Telephone [facility] [address] [place] [address] Cintia Payne MD CHART PREP from Last 3 Months Immunizations Immunization Administration Dates Next Due DTaP 12/07/1994, 1,11/13/1990,03/15,01/10/1990 [...] Access Q2 Not on file 04/28/2024 Comments Yes Sex and Gender Information Value Date Recorded Sex Assigned at Female 06/26/2022 10:15 AM EDT Legal Sex Female 10:15 AM EDT Gender Identity Female 06/26/2022 10:15 AM EDT Sexual Orientation Straight 06/26/2022 10 :15 AM EDT Last Filed Vital Signs Vital Sign Reading Time Taken Comments Blood Pressure 136/93 03/10/2025 2:34 PM EDT Pulse 94 03/10/2025 2:34 PM EDT Temperature 37.4 C (99.3 F) 03/10/2025 2:34 PM EDT Respiratory Rate 17 03/10/2025 2:34 PM EDT Oxygen Saturation 98% 03/10/2025 2:34 PM EDT Inhaled Oxygen Concentration - - Weight 95.5 kg (210 lb 9.6 oz) 03/10/2025 2:34 P M EDT Height 162.6 cm (5' 4 ) 09/30/2024 2:41 PM EST Body Mass Index 36.15 09/30/2024 2:41 PM EST Plan of Treatment Health Maintenance Due Date Last Done Comments Disability Screening 1989 Diabetes: Foot Exam 11/08/1999 Eye Exam 11/08/1999 Alcohol/Substance Use Screening 2001 Family Planning (PISQ) 2004 Hepatitis A Vaccines (1 of 2 - Risk 2-dose series) 2008 HPV Vaccines (2 - 3-dose series) 12/02/2009 11/04/2009 Pap Smear 2010 Cervical Cancer Screening 11/08/2019 HPV/Cotest 11/08/2019 Pneumococcal Vaccine: Pediatrics (0 to 5 Years) and At-Risk Patients (6 to 49) Years (2 of 2 - PCV) 04/15/2020 04/15/2019 Depression Monitoring 01/05/2025 07/08/2024, 024 SDOH Screening 03/07/2025 03/07/2024 COVID-19 Vaccine ( season) 2025 10/20/2020, 09/22/2020 Influenza Vaccine (#1) 2025 , 05/29/2023, 07/26/2017, Additional history exists Diabetes: Urine Protein Screening 07/22/2025 07/22/2024 Diabetes: Hemoglobin A1C 09/10/2025 025, 10/02/2024, 07/22/2024, Additional history exists Tobacco Screening 09/30/2025 09/30/2024 Lipid Panel 10/02/2025 [...] Hepatitis B Vaccines Completed 10/12/1998, 06/29/1998, 04/09/1998 Hepatitis C Screening Completed 07/22/2024 , 03/18/2024, 01/17/2024, Additional history exists HIV Screening Completed 10/02/2024, 06/28, 03/18/2024, Additional history exists Meningococcal B Vaccine Aged Out No l onger eligible based on patient's age to complete this topic Meningococcal Vaccine Aged Out No eunice ruby eligible based on patient's age to complete this topic RSV under 20 months Aged Out No longe r eligible based on patient's age to complete this topic Rotavirus Vaccines Aged Out No longer eligible based on patient's age to complete this topic Procedures Procedure Name Priority Date/Time Associated Diagnosis Comments CBC WITH AUTO DIFFERENTIAL Routine 06/25/2025 3:05 AM EDT POCT GLYCATED HEMOGLOBIN, TOTAL Routine 03/10/2025 3:19 PM EDT Lightheadedness HIV 1/2 ANTIGEN/ANTIBODY, FOURTH GENERATION W/RFL Routine 10/02/2024 10:00 AM EST Possible exposure to STI LIPID PANEL, STANDARD Routine 10/02/2024 10:00 AM EST HEPATITIS C AB W/REFL TO [...] Recently Relevant to Health Maintenance Results * (ABNORMAL) CBC auto differential (06/25/2025 3:05 AM EDT) White Blood Count 17.4(H) 4.8 - 10.8 X10*3/uL [facility] Red Blood Count 4.90 4.20 - 5.50 X10*6/uL [facility] Hemoglobin 12.7 12.0 - 16.0 g/dl [facility] Hematocrit 39.7 37.0 - 47.0 % [facility] Mean Corpuscular Volume 81.0 80.0 - 98.0 fL [facility] Mean Corpuscular Hemoglobin 25.9(L) 27.0 - 33.0 pg [facility] Mean Corpuscular HGB Conc 32.0 31.0 - 35.0 g/dl [facility] Red Cell Distribution Width 13.1 11.0 - 16.0 % [facility] Platelet Count 334 160 - 400 X10*3/uL [facility] Mean Platelet Volume 8.9(L) 9.4 - 12.3 fL [facility] Neutrophils Percent Auto 81.9(H) 45 - 73 % [facility] Imm Gran Pct Auto 0.3 0.0 - 0.4 % [facility] Lymphocytes Percent Auto 11.8(L) 20 - 40 % [facility] Monocytes Percent Auto 5.2 2 - 11 % [facility] Eosinophils Percent Auto 0.2 0 - 4 % [facility] Basophils Percent Auto 0.6 0 - 2 % [facility] NRBC Pct Auto 0.0 0.0 - 0.2 /100WBC [facility] Neutrophils Absolute Auto 14.3(H) 2.0 - 8.3 x10*3/uL [facility] Imm Gran Abs Auto 0.06(H) 0.00 - 0.03 X10*3/uL [facility] Lymphocytes Absolute Auto 2.1 1.2 - 4.9 X10*3/uL [facility] Monocytes Absolute Auto 0.9 0.1 - 1.2 X10*3/uL [facility] Eosinophils Absolute Auto 0.0 0.0 - 0.4 X10*3/uL [facility] Basophils Absolute Auto 0.1 0.0 - 0.2 X10*3/uL [facility] NRBC Abs Auto 0.000 0.0 - 0.012 X10*3/uL [facility] 06/25/2025 3:05 AM EDT 06/25/2025 3:08 AM EDT us Generic External Data Provider LAB BLOOD ORDERAB LES Final Result [facility] [address] [place] [address] [phone] * (ABNORMAL) POCT A1C (03/10/2025 3:19 PM EDT) Hemoglobin A1C 6.6(A) 4.0 - 5.7 % Blood 03/10/2025 3:19 PM EDT us Cintia Payne MD POINT OF CARE TEST ENTER /EDIT ORDERABLES Final Result * HIV-1/2 Antigen and Antibodies, Fourth Generation, with Reflexes (10/02/2024 10:00 AM EST) HIV AB/AG Nonreactive Nonreactive [facility] Comment:HIV-1 p24 Ag and/or HIV-1/HIV-2 Ab not detected.A test result that is nonreactive does not exclude thepossibility of exposure to or infection with HIV-1 and/orHIV-2. Nonreactive results in this assay for individualswith prior exposure to HIV-1 and/or HIV-2 may be due toantigen and antibody levels that are below the limit ofdetection of this assay.The [employer] HIV Ag/Ab Combo assay result andsupplemental assay results should be interpreted inconjunction with the patient's clinical presentation,history and other laboratory results. If the results areinconsistent with clinical evidence, additional testing issuggested to confirm the result. Blood Venous blood specimen / Unknown 10/02/2024 10:00 AM EST 10/02/2024 10:00 AM EST us Colleen Rust MD LAB BLOOD ORDERABLES Final Re sult [facility] [address] [place] [phone] * (ABNORMAL) Lipid Panel, Standard (10/02/2024 10:00 AM EST) Triglycerides 103 <150 mg/dL [facility] Comment:Desirable Triglyceri de: less than 150 mg/dLBorderline High Triglyceride 150-199 mg/dLHigh Triglyceride: 200-499 mg/dLVery High Triglyceride: greater than or equal to 5OO mg/dL Cholesterol 168 <200 mg/dL [facility] Comment:Desirable Cholestero l: less than 200 mg/dLBorderline High Cholesterol: 200-239 mg/dLHigh Cholesterol: greater than 239 mg/dL LDL Cholesterol Calculated 102(H) <100 mg/dL [facility] Comment:Desirable LDL: less than 100 mg/dLNear Optimal/Above Optimal LDL: 110- 129 mg/dLBorderline High LDL: 130-159 mg/dLHigh LDL: 160-189 mg/dLVery High LDL: greater than or equal to 190 mg/dL HDL Cholesterol 46 >40 mg/dL [facility] Comment:Desirable HDL: great er than 40 mg/dL Note: This HDL assay may give artificially low results in patients with liver disease. 10/02/2024 10:0 0 AM EST 10/02/2024 10:00 AM EST us Generic External Data Provider LAB BLOOD ORDERAB LES Final Result Performing Organization Address [facility] de Phone Number [facility] [address] [place] [phone] * Albumin, Random Urine W/Creatinine (07/22/2024 10:05 AM EST) Creatinine, Urine 309.91 mg/dL [facility] Microalbumin Urine 29.0 mg/L [facility] Microalbum Creatinine Ratio Ur 9.3 <30 ug/mg cr [facility] Comment:Albumin/Creatinine R atio Reference Ranges: Normal: < 30 ug/mg creatinine Microalbuminuria: 30 - 300 ug/mg creatinineClinical Albuminuria: > 300 ug/mg creatinine Urine (Urine, Random) 07/22/2024 10:05 AM EST 07/22/2024 11:28 AM EST us Lindsey Gramajo DO LAB URINE ORDERABLES Final R esult Performing Organization Address [facility] de Phone Number [facility] [address] [place] [phone] * Hepatitis C Antibody with Reflex to HCV, RNA, Quantitative, Real-Time PCR (07/22/2024 10:05 AM EST) Hepatitis C Antibody Nonreactive Nonreactive [facility] Comment:Antibodies to HCV no t detected; does not exclude early acuteHCV infection. Blood Venous blood specimen / Unknown 07/22/2024 10:05 AM EST 07/22/2024 11:44 AM EST us Lindsey Gramajo DO LAB BLOOD ORDERABLES Final R esult [facility] [address] [place] [phone] [phone] from Last 3 Months or Most Recently Relevant to Health Maintenance Insurance Care Teams Strap Stitcher Relationship Specialty Start Date End Date Lindsey Gramajo DO [address] [place] [phone] PCP - General Family Medicine 05/22/24
--- OUTSIDE RECORDS SUMMARY | 2025-06-25 03:26 | XMS_ITS | Encounter Summary ---
Author Organization [employer] Address [address] [facility] [address] [place] [address] Care Team Providers Care Furrier Apprentice Name Role Phone Anupama Gramajofer Primary Care Provider + [phone] Encounter Details Date Type Department Care Team (Late st Contact Info) Description 06/25/2025 Orders Only GENERIC EXTERNAL DATA DEPARTMENT Provider, Generic External Data Social History Tobacco Use Types Packs/Day Years [...] AUTO DIFFERENTIAL Routine 06/25/2025 3:05 AM EDT documented in this encounter Results * (ABNORMAL) CBC auto differential (06/25/2025 3:05 AM EDT) White Blood Count 17.4(H) 4.8 - 10.8 X10*3/uL [facility] Red Blood Count 4.90 4.20 - 5.50 X10*6/uL [facility] Hemoglobin 12.7 12.0 - 16.0 g/dl [facility] Hematocrit 39.7 37.0 - 47.0 % [facility] Mean Corpuscular Volume 81.0 80.0 - 98.0 fL [facility] Mean Corpuscular Hemoglobin 25.9(L) 27.0 - 33.0 pg [facility] Mean Corpuscular HGB Conc 32.0 31.0 - 35.0 g/dl [facility] Red Cell Distribution Width 13.1 11.0 - 16.0 % [facility] Platelet Count 334 160 - 400 X10*3/uL [facility] Mean Platelet Volume 8.9(L) 9.4 - 12.3 fL [facility] Neutrophils Percent Auto 81.9(H) 45 - 73 % [facility] Imm Gran Pct Auto 0.3 0.0 - 0.4 % [facility] Lymphocytes Percent Auto 11.8(L) 20 - 40 % [facility] Monocytes Percent Auto 5.2 2 - 11 % [facility] Eosinophils Percent Auto 0.2 0 - 4 % [facility] Basophils Percent Auto 0.6 0 - 2 % [facility] NRBC Pct Auto 0.0 0.0 - 0.2 /100WBC [facility] Neutrophils Absolute Auto 14.3(H) 2.0 - 8.3 x10*3/uL [facility] Imm Gran Abs Auto 0.06(H) 0.00 - 0.03 X10*3/uL [facility] Lymphocytes Absolute Auto 2.1 1.2 - 4.9 X10*3/uL [facility] Monocytes Absolute Auto 0.9 0.1 - 1.2 X10*3/uL [facility] Eosinophils Absolute Auto 0.0 0.0 - 0.4 X10*3/uL [facility] Basophils Absolute Auto 0.1 0.0 - 0.2 X10*3/uL [facility] NRBC Abs Auto 0.000 0.0 - 0.012 X10*3/uL [facility] 06/25/2025 3:05 AM EDT 06/25/2025 3:08 AM EDT us Generic External Data Provider LAB BLOOD ORDERAB LES Final Result Performing Organization Address City/State/[facility] Co de Phone Number [facility] [address] [place] [phone] documented in this encounter Visit Diagnoses Not on filedocumented in this encounter Additional Health Concerns Assessment Noted Time PHQ-9 Depression Total Score: 14 07/08/2 024 3:31 PM EST documented as of this encounter Care Teams Furrier Apprentice Relationship Specialty Start Date End Date Lindsey Gramajo DO [address] [place] [phone] PCP - General Family Medicine 05/22/24 documented as of this encounter
[2025-06-25 04:46] VITALS: BP 145/98; PULSE 99; RESP 16; TEMP 36.8; O2SAT 100
--- NOTE | 2025-06-25 06:07 | ED.FALL ---
HPI - Fall General Chief Complaint: Fall Stated Complaint: Fall lac on head Time Seen by Provider: 06/25/25 06:02 Source: patient Mode of arrival: ambulatory Limitations: no limitations History of Present Illness HPI Narrative: This is 34 years old the female presented to the emergency department complaining of head injury and laceration of the scalp. She states she was drinking and cleaning the floor about 23:00 she fell down the stairs. She complaining of headache she has a lack in the scalp. She has no chest wall pain no abdominal pain no extremity pain she was able to ambulate to the ED MD complaint: fall Onset (ago): hour(s) (8) Fall from: down stairs (#) Place fall occurred: home Loss of consciousness: none Prolonged down time: no Symptoms prior to fall: none Context: tripped/slipped and alcohol use Location of injury: head Severity: moderate Associated symptoms (after fall): denies 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 Previous Rx's ?Medication ?Instructions ?Recorded cholecalciferol (vitamin D3) 25 25 mcg PO DAILY #90 caps 07/31/23 mcg (1,000 unit) capsule acetaminophen 500 mg tablet 500 mg PO Q6H PRN pain #30 tabs 01/25/24 (Tylenol Extra Strength) pantoprazole 40 mg tablet,delayed 40 mg PO DAILY #90 tabs 09/30/24 release thiamine HCl (vitamin B1) 100 mg 100 mg PO DAILY #90 tabs 10/09/24 tablet Allergies Allergy/AdvReac Type Severity Reaction Status Date / Time doxycycline (DOXYCYCLINE) Allergy Intermediate RASH/HIVES Verified 06/25/25 02:42 Penicillins Allergy Unknown Unknown Verified 06/25/25 02:42 Review of Systems Constitutional: Constitutional: Reports no additional constitutional complaints ENT: Reports system reviewed and no additional complaints, except as documented Gastrointestinal: Gastrointestinal: Reports no additional gastrointestinal complaints PMFSH Past Medical History PMF Narrative: She denies any major medical problems Medical History PCOS (polycystic ovarian syndrome) Intestinal malabsorption following gastrectomy Overweight (BMI 25.0-29.9) Surgical History Hx of breast augmentation S/P laparoscopic sleeve gastrectomy History of sleeve gastrectomy Hx of carpal tunnel repair Hx of cholecystectomy Family History Family History Father No problems noted. Mother High cholesterol Diabetes mellitus CVD (cardiovascular disease) Arthritis Brother Overdose Brother No problems noted. Sister No problems noted. Daughter No problems noted. Paternal Grandmother Breast cancer Social History Social History Household Members Other:: daughter Housing: Apartment Alcohol intake: current Alcohol intake frequency: a few times a month Alcohol type: wine and hard liquor Comment: social Patient Tobacco Use Status: Never used Tobacco Smoked in Last 30 Days: No Use of substances other than those prescribed or required for medical reasons: Yes Substance Use Type: Marijuana Substance Use Type Other:: edibles (gummies) Substance Use Frequency: Weekly Advance Directives: No Advance Directives Information Provided: Yes Current occupational status: employed 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 [employer] Sexual orientation: Straight/Heterosexual Gender identity: Female Physical Exam Exam: Exam: She looks well she has no in distress she is sitting in the stretcher Vital Signs: Vital Signs: Last Vital Signs Temp 98.2 F 06/25/25 04:46 Pulse 99 06/25/25 04:46 Resp 16 06/25/25 04:46 BP 145/98 H 06/25/25 04:46 Pulse Ox 100 06/25/25 04:46 O2 Del Method Room Air 06/25/25 04:46 BMI result Body Mass Index 34.1 Const: Orientation/consciousness: oriented to person and patient oriented x3 HEENT: Other: She has 4 cm laceration occipital area also she has another lac 3 cm in the occipital area as well Ears: hearing grossly normal bilaterally General nose exam: Normal external nose present Face and sinus: Yes normal facial exam Mouth: Normal oral and palatal mucosa present Eyes: General: appearance normal, both eyes and all related structures Visual Prather: normal visual prather by confrontation Conjunctivae: conjunctivae normal Pupils: Equal, round and reactive pupils present Neck: Other: Neck is supple Neck: Yes full ROM Chest: Chest palpation & inspection: normal inspection of the chest Resp: Effort & Inspection: normal respiratory effort Auscultation: clear to auscultation bilaterally Cardio: Jugular venous distension: no JVD Rate: regular rate Rhythm: regular rhythm GI: Inspection: Yes normal to inspection Palpation (GI): Soft to palpation, not firm, nontender and no guarding Skin: General skin exam: no rashes or lesions noted and elasticity normal Lesions: no lesions Rashes: no rashes Neuro: General: oriented to person and patient oriented x3 Cranial nerves: Yes CN's II-XII intact bilaterally and Yes Equal, round and reactive pupils present Extrem: General: Yes normal to inspection and Yes full ROM Course Course Course Narrative: Patient is here after a fall we will obtain imaging of the head C-spine we will repair the lack Medications Administered Discontinued Medications Generic Name Dose Route Start Last Admin Trade Name Freq PRN Reason Stop Dose Admin Acetaminophen 975 mg 06/25/25 04:58 06/25/25 05:02 Acetaminophen 325 Mg Tablet PO 06/25/25 04:59 975 mg ONCE ONE Administration Lidocaine HCl 5 ml 06/25/25 06:06 06/25/25 06:15 Lidocaine Hcl 1 % Mpf 5 Ml Vial INFILTRATI 06/25/25 06:07 Not Given ONCE ONE Procedures Laceration Laceration 1: Site: scalp Size (cm): 4 Description: linear Depth: simple, single layer Local Anesthetic: lidocaine 1% Amount of anesthesia used (mL): 3 Skin layer closed with: yobany (5 yobany) Laceration 2: Site: scalp Size (cm): 3 Description: linear Depth: simple, single layer Local Anesthetic: lidocaine 1% Amount of anesthesia used (mL): 3 Pre-repair: wound explored and irrigated extensively Skin layer closed with: yobany (3 yobany) Medical Decision Making Medical Decision Making [facility] Narrative: Patient is here after a fall we will obtain imaging repaired the lack 08:[address] negative, white count noted however she has no evidence of infection she is afebrile white count can be rechecked as outpatient I told this to the patient Differential Diagnosis Differential Diagnoses: The differential diagnosis associated with the presentation includes Subdural hematoma/epidural hematoma/cervical spine fracture Lab Data [facility] Lab Attestation statement: I reviewed the patient's lab results. 06/25/25 03:05 06/25/25 03:05 Labs: Lab Results 06/25/25 Range/Units 03:05 WBC 17.4 H (4.8-10.8) X10*3/uL RBC 4.90 (4.20-5.50) X10*6/uL Hgb 12.7 (12.0-16.0) g/dl Hct 39.7 (37.0-47.0) % MCV 81.0 (80.0-98.0) fL MCH 25.9 L (27.0-33.0) pg MCHC 32.0 (31.0-35.0) g/dl RDW 13.1 (11.0-16.0) % Plt Count 334 (160-400) X10*3/uL MPV 8.9 L (9.4-12.3) fL Immature Gran % (Auto) 0.3 (0.0-0.4) % Neut % (Auto) 81.9 H (45-73) % Lymph % (Auto) 11.8 L (20-40) % Mccreary % (Auto) 5.2 (2-11) % Eos % (Auto) 0.2 (0-4) % Baso % (Auto) 0.6 (0-2) % Lymph # (Auto) 2.1 (1.2-4.9) X10*3/uL Mccreary # (Auto) 0.9 (0.1-1.2) X10*3/uL Eos # (Auto) 0.0 (0.0-0.4) X10*3/uL Baso # (Auto) 0.1 (0.0-0.2) X10*3/uL Abs Immat Gran (auto) 0.06 H (0.00-0.03) X10*3/uL Absolute Neuts (auto) 14.3 H (2.0-8.3) x10*3/uL Absolute Nucleated RBC 0.000 (0.0-0.012) X10*3/uL Nucleated RBC % (auto) 0.0 (0.0-0.2) /100WBC Sodium 142 (135-145) mmol/L Potassium 3.6 (3.3-5.1) mmol/L Chloride 108 (96-108) mmol/L Carbon Dioxide 23 (22-29) mmol/L Anion Gap 15 (12-20) BUN 11 (9-16) mg/dL Creatinine 0.61 (0.5-1.4) mg/dL Estim Creat Clear Calc 145.0 Estimated GFR > 60 Random Glucose 133 H (60-115) mg/dL Calcium 9.4 D (8.4-10.2) mg/dL Total Bilirubin 0.2 (0.0-1.0) mg/dL AST 27 (5-31) U/L ALT 23 (0-31) U/L Alkaline Phosphatase 77 (39-117) U/L Total Protein 8.2 H (6.5-8.0) g/dL Albumin 4.8 (3.5-5.0) g/dL Beta HCG, Quant < 2 mIU/mL Ethyl Alcohol 54 mg/dL Independent Interpretation I performed an independent interpretation of an: CT Scan Interpretation: negative Radiology Impression Discussion of test interpretation with radiology: I have reviewed the radiologist's reading. Radiologist Impression: cking between the left external and internal oblique muscles as well as subjacent to the left transversus abdominis muscle laterally. A definitive focal fluid collection is not seen. LYMPH NODES: No lymphadenopathy. VASCULAR: Unremarkable. PELVIC VISCERA: Anteverted/anteflexed uterus containing an IUD without associated abnormality. Mild free fluid in the cul-de-sac. OSSEOUS STRUCTURES: Unremarkable. geted exams where dose is matched to indication/reason for exam; i.e. extremities or head) *Use of iterative reconstruction technique DLP: 696.50 mGy-cm FINDINGS: No acute cortical disruption in the bony calvarium or the skull base. Skin yobany in the left and right parietal soft tissue scalp with associated subcutaneous emphysema. No acute intracranial hemorrhage, mass effect, midline shift, hydrocephalus or herniation. Pollock-white matter differentiation is normal. Posterior cranial fossa contents demonstrated no acute hemorrhage or mass effect. Normal position of the cerebellar tonsils. Sellar/suprasellar region demonstrated no gross masses. No air-fluid levels in the paranasal sinuses. Poor pneumatization of the frontal sinuses. Tympanic cavities and mastoid cells are aerated. CT/CT head/brain wo IV con IMPRESSION: No acute fracture, bony calvarium. No acute intracranial hemorrhage. Soft tissue contusion with lacerations, occipital soft tissue scalp. Discharge Plan Discharge Clinical Impression: Head injury Qualifiers: Encounter type: initial encounter Qualified Code(s): S09.90XA - Unspecified injury of head, initial encounter Laceration of scalp Qualifiers: Encounter type: initial encounter Qualified Code(s): S01.01XA - Laceration without foreign body of scalp, initial encounter Patient Disposition: Home, Self-Care Instructions: Laceration (ED), Head Injury (DC) Additional Instructions: The yobany should come out in about 7-10 days by your primary care physician or urgent care or return to the ED Prescriptions: No Action cholecalciferol (vitamin D3) 25 mcg (1,000 unit) capsule 25 mcg PO DAILY Qty: 90 3RF thiamine HCl (vitamin B1) 100 mg tablet 100 mg PO DAILY Qty: 90 3RF acetaminophen [Tylenol Extra Strength] 500 mg tablet 500 mg PO Q6H PRN (Reason: pain) Qty: 30 0RF pantoprazole 40 mg tablet,delayed release (DR/EC) 40 mg PO DAILY Qty: 90 3RF duloxetine [Cymbalta] 20 mg capsule,delayed release(DR/EC) 20 mg PO DAILY clonidine HCl 0.1 mg tablet 0.1 mg PO DAILY quetiapine 25 mg tablet 25 mg PO BEDTIME ammonium lactate 12 % lotion topical Referrals: Lindsey Gramajo DO [Primary Care Provider, Internal Medicine] Stand Alone Forms: Work/School Release Print Language: Tunisian
[2025-06-25 08:55] VITALS: BP 145/101; PULSE 97; RESP 16; TEMP 36.7; O2SAT 99
== END 2025-06-25 08:56 | disposition home or self-care (01) ==
PROVIDERS: Emergency Provider Emergency Medicine; PCP Family Medicine
DX: S01.01XA Laceration without foreign body of scalp, initial encounter (principal); R51.9 Headache, unspecified; M54.2 Cervicalgia; W10.8XXA Fall (on) (from) other stairs and steps, initial encounter; Y93.E5 Activity, floor mopping and cleaning; Y92.098 Other place in other non-institutional residence as the place of occurrence of the external cause; Y99.8 Other external cause status; Z51.81 Encounter for therapeutic drug level monitoring; Z79.899 Other long term (current) drug therapy
CPT/HCPCS: 12002; 36415; 70450; 72125; 80053; 80307; 84702; 85025; 99284

== ENCOUNTER → 2025-06-25 06:07 | Outpatient (BNV) | payer MEDICAID, SELFPAY | PROVIDERS: Emergency Provider Emergency Medicine; PCP Family Medicine; Visit Provider Radiology Diagnostic Radiology | DX: S09.90XA Unspecified injury of head, initial encounter (principal); W10.8XXA Fall (on) (from) other stairs and steps, initial encounter | CPT/HCPCS: 70450; 72125 ==

== ENCOUNTER 2025-06-26 12:21 | Emergency (ER) | payer MEDICAID, SELFPAY ==
--- NOTE | ~2025-06-26 | CT_ITS ---
EXAMINATION: CT HEAD WITHOUT IV CONTRAST HISTORY: fall, worsening MILAN/dizziness, vomiting. TECHNIQUE: Unenhanced helical CT of the head was performed per standard departmental protocol. Coronal and sagittal reformats of the head were also evaluated. One or more of the following techniques was used for dose reduction: Automated exposure control, adjustment of the mA and/or kV according to patient size, use of iterative reconstruction technique. DLP:6 9 9 mGy-cm COMPARISON: Previous head CT scans most recent from yesterday FINDINGS: BRAIN: The brain parenchyma is unremarkable. There is normal kerr/white differentiation. The ventricular system is normal in size and configuration. There is no mass effect or midline shift. No intra- or extra-axial fluid collections are identified. SINUSES: The visualized paranasal sinuses are clear. The mastoid air cells and middle ear cavities are well pneumatized. ORBITS: The visualized orbits are unremarkable. BONES/SOFT TISSUES: Trauma to the soft tissues over the posterior vertex similar to today's exam. The calvarium is intact. No suspicious lytic or sclerotic lesions. CT/CT head/brain wo IV con IMPRESSION: No acute intracranial abnormality. Trauma to the soft tissues over the posterior vertex similar to yesterday's exam. Electronically signed by: Noreen Lozoya MD 06/26/2025 01:52 PM EDT RP
[2025-06-26 12:27] VITALS: BP 175/91; PULSE 74; RESP 16; TEMP 36.8; O2SAT 98; BMI 34.1
--- NOTE | 2025-06-26 12:27 | ED.GENADULT ---
HPI - General Adult General Chief complaint: Head Injury Stated complaint: Dizzy Lightheaded Time Seen by Provider: 06/26/25 14:15 Source: patient, RN notes reviewed, old records reviewed and other Mode of arrival: ambulatory Limitations: no limitations History of Present Illness ED Provider: Kathryn Ortiz PA-C HPI narrative: Well-appearing 34-year-old female with recent head injury presenting to the emergency department today for worsening dizziness and headache. Two days ago patient had a fall downstairs presented to the ED had a normal CT scan at that time. She came back today because she continues to feel lightheaded/dizzy when she changes positions too quickly. She still has head pain as well. She had a rapid medical exam done in triage with basic labs and a repeat head CT done. Patient states she has no dizziness at rest and no visual changes she did have 1 episode of vomiting yesterday but does not feel nauseous today. She is denying any fevers or chills or other respiratory symptoms. No neck or back pain. She has not washed her hair your as she was not sure. TD is up-to-date. No paresthesias or weakness of the limbs. Headache is not the worst she has ever had it is a dull ache posteriorly with pressure in ears. She is not on any anticoagulation. 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 Previous Rx's ?Medication ?Instructions ?Recorded cholecalciferol (vitamin D3) 25 25 mcg PO DAILY #90 caps 07/31/23 mcg (1,000 unit) capsule acetaminophen 500 mg tablet 500 mg PO Q6H PRN pain #30 tabs 01/25/24 (Tylenol Extra Strength) pantoprazole 40 mg tablet,delayed 40 mg PO DAILY #90 tabs 09/30/24 release thiamine HCl (vitamin B1) 100 mg 100 mg PO DAILY #90 tabs 10/09/24 tablet meclizine 25 mg tablet 25 mg PO TID PRN dizziness #21 tabs 06/26/25 Allergies Allergy/AdvReac Type Severity Reaction Status Date / Time doxycycline (DOXYCYCLINE) Allergy Intermediate RASH/HIVES Verified 06/26/25 12:29 Penicillins Allergy Unknown Unknown Verified 06/26/25 12:29 Review of Systems Review of Systems: Yes all other systems are reviewed and are negative PMFSH Past Medical History Attestation statement: The following information was validated with the patient. Source: old records reviewed and nursing notes reviewed Medical History PCOS (polycystic ovarian syndrome) Intestinal malabsorption following gastrectomy Overweight (BMI 25.0-29.9) Surgical History Hx of breast augmentation S/P laparoscopic sleeve gastrectomy History of sleeve gastrectomy Hx of carpal tunnel repair Hx of cholecystectomy Family History Family History Father No problems noted. Mother High cholesterol Diabetes mellitus CVD (cardiovascular disease) Arthritis Brother Overdose Brother No problems noted. Sister No problems noted. Daughter No problems noted. 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 No septic or ill-appearing. Vitals reviewed normal, PMH/Social and Surgical hx reviewed including allergies and current medications. - reviewed for prior visits here and read as it pertains to similar CC. Head: Normocephalic, no abnormal lesions noted other than laceration occipital with galileo intact no hematoma or wound dehiscence. No midline tenderness, step-offs or deformities of entire spine Eyes: EOMI. PERRLA mild photophobia noted. ENMT: moist oral mucosa, no edematous nasal turbinates, erythema, or purulent d/c noted. No erythema, normal appearing and intact tympanic membrane. B/l advanced serous OM noted without hemotympanum noted b/l. No judge signs, raccoon eyes, or septal hematoma. Hearing intact. No mastoid tenderness b/l. Normal posterior pharynx and structures. Uvula is midline no trismus. Neck: trachea midline, no lymphadenopathy. No nuchal rigidity. Cardiovascular: peripheral perfusion normal, S1 and S2 present, no M/R/G. RRR Respiratory: no respiratory distress, lungs clear to auscultation b/l, respirations full and symmetric. No flail chest, chest wall tenderness or crepitus noted. Speaking in full smooth sentences. Abdomen: nondistended, obese Extremities: Warm and appear well perfused. Moving extremities without difficulty. Psych: Cooperative, calm. Neuro: Alert and orientated. No obvious focal deficits. Cranial nerves II through XII intact, speech fluent and appropriate, no pptrno-cxiu-arqdvy ataxia, no odjx-dw-iova ataxia, no palmar drift, strength 5+ throughout, sensory intact throughout to soft touch and equal bilaterally Vital Signs: Vital Signs - 24 hr 06/26/25 12:27 06/26/25 14:26 Temperature 98.3 F 98.3 F Pulse Rate 74 79 Respiratory Rate 16 19 Blood Pressure 175/91 H 150/99 H Pulse Oximetry 98 99 Oxygen Delivery Method Room Air Room Air BMI result Body Mass Index 34.1 Course Course Course Narrative: This is a Rapid Medical Examination (RME) performed by Della Rivera PA-C in triage. Full HPI, ROS, assessment and treatment plan per primary provider in the Main ED. Hx: 34 yo F here for eval of dizziness (both light headed and room spinning) on waking this morning. assoc nausea, vomiting, and headache. patient fell down stairs 2 days ago, evaluated at our facility yesterday w/ normal head scan. received galileo for scalp lac. states symptoms appear to be worsening. PE: hypertensive - states she has HTN, does not take meds for this. Plan: labs, repeat CT Medical Decision Making Medical Decision Making MDM Narrative: Well appearing 34 y.o F who is here today for continued headache and dizziness following fall 2 days ago. She already had negative Head CT. She had basic labs ordered from triage, no anemia, leukocytosis or electrolyte derangement. ruled out.Her neuro exam today is nonfocal. She presents with evidence of concussion clinically. She has b/l advanced serous OM which likely exacerbating her concussive symptoms. No new trauma reported or noted. Galileo in scalp intact without hematoma. Repeat Head CT is not indicated. Discussed serous OM and TBIs in great detail with the patient including expected course and complications. Patient was given return precautions with plan in dispo. She and her sig other demonstrated verbal understanding of the plan and agreed; she was d/c to home stable. Differential Diagnosis Differential Diagnoses: The differential diagnosis associated with the presentation includes concussion headache vertigo Admission/Observation Consideration of admission/observation: Escalation of care including admission/observation considered Lab Data MDM Lab Attestation statement: I reviewed the patient's lab results. 06/26/25 12:54 06/26/25 12:54 Labs: Lab Results 06/26/25 Range/Units 12:54 WBC 8.5 (4.8-10.8) X10*3/uL RBC 4.58 (4.20-5.50) X10*6/uL Hgb 12.1 (12.0-16.0) g/dl Hct 37.6 (37.0-47.0) % MCV 82.1 (80.0-98.0) fL MCH 26.4 L (27.0-33.0) pg MCHC 32.2 (31.0-35.0) g/dl RDW 13.3 (11.0-16.0) % Plt Count 315 (160-400) X10*3/uL MPV 9.5 (9.4-12.3) fL Immature Gran % (Auto) 0.1 (0.0-0.4) % Neut % (Auto) 66.7 (45-73) % Lymph % (Auto) 23.8 (20-40) % [place] % (Auto) 6.1 (2-11) % Eos % (Auto) 2.5 (0-4) % Baso % (Auto) 0.8 (0-2) % Lymph # (Auto) 2.0 (1.2-4.9) X10*3/uL [place] # (Auto) 0.5 (0.1-1.2) X10*3/uL Eos # (Auto) 0.2 (0.0-0.4) X10*3/uL Baso # (Auto) 0.1 (0.0-0.2) X10*3/uL Abs Immat Gran (auto) 0.01 (0.00-0.03) X10*3/uL Absolute Neuts (auto) 5.6 (2.0-8.3) x10*3/uL Absolute Nucleated RBC 0.000 (0.0-0.012) X10*3/uL Nucleated RBC % (auto) 0.0 (0.0-0.2) /100WBC Sodium 140 (135-145) mmol/L Potassium 4.0 (3.3-5.1) mmol/L Chloride 106 (96-108) mmol/L Carbon Dioxide 27 (22-29) mmol/L Anion Gap 11 L (12-20) BUN 12 (9-16) mg/dL Creatinine 0.64 (0.5-1.4) mg/dL Estim Creat Clear Calc 138.2 Estimated GFR > 60 Random Glucose 128 H (60-115) mg/dL Calcium 9.4 (8.4-10.2) mg/dL Magnesium 2.0 (1.6-2.6) mg/dL Total Bilirubin 0.2 (0.0-1.0) mg/dL AST 23 (5-31) U/L ALT 21 (0-31) U/L Alkaline Phosphatase 77 (39-117) U/L Total Protein 7.5 (6.5-8.0) g/dL Albumin 4.4 (3.5-5.0) g/dL Beta HCG, Quant < 2 mIU/mL Independent Historian Clinical information obtained from an independent historian. History obtained from or confirmed by: Spouse Tests considered The following testing was considered but not selected: Had patient had nonfocal exam or new trauma, would have considered repeat CT head. Chronic Conditions Patient?s care impacted by: Other (obesity) Social Determinants Patient?s care significantly limited by Social Determinants of Health including: Other Social Determinant of Health Discharge Plan Discharge Clinical Impression: Concussion, Head injury, Dizziness, Bilateral chronic serous otitis media Patient Disposition: Home, Self-Care Instructions: Fluid In The Ear (Serous Otitis Media) (ED) Additional Instructions: You were rechecked in the emergency department today following your head injury that occurred 2 days ago you had a normal head CT 2 days ago as well as today. This shows no evidence for any type of hemorrhage/bleed. You have clinical signs and symptoms of a concussion. We have found no evidence to indicate that your head injury was serious, however, new symptoms and unexpected complications can develop hours or even days after the injury. The first 24 hours are the most crucial and you should remain with a reliable purse seining hand at least during this period. If any of the following signs develop please go to the ER immediately. - Drowsiness/increased difficulty arousing the patient - Vomiting - Convulsions or fits - Bleeding or watery drainage from the nose or ear - Severe headache - Weakness or loss of feeling in the arm or leg - Confusion or strange behavior - One pupil (black part of the eye) becomes much larger than the other; peculiar eye movements, double vision, or other visual disturbances Please contact your PCP to arrange a followup appointment for reevaluation.?? Sometimes it can take more than a week for complete recovery. No strenuous exercise.? Avoid activity that requires higher level of concentration (reading, staring at screens - ie computer, cell phones). You should avoid any activity that you feel exacerbates your headache. As you begin to feel better you can slowly begin to introduce new activities until you are feeling well and are able to perform your usual activity without symptoms. You may eat or drink as usual if you so desire, however, you should not drink alcoholic beverages while experiencing concussive symptoms as this may exacerbate your symptoms. - And while the dizziness that you are experiencing may be related to this it also could be due to the fluid that is in both your ears it has a white opacity to it showing that it has been there for several weeks or months this we seen in cases of viruses allergies and weather changes likely your acute fall made it worse see below for additional instructions on care for this. You have been given a prescription for meclizine which will help with the dizziness but it will not clear the fluid in your ears please take allergy medicine twice daily as mentioned below. Serous Otitis Media is NOT an ear infection, instead, it is a build up of fluid behind your ear drum that causes sensation of pressure/blockage and at times can cause dizziness, crackling/popping sounds, and discomfort.? Fluid behind ear drums is a common condition associated with Allergies, Viral upper respiratory infections, sinus inflammation, and many other upper respiratory conditions.? This condition will typically resolve on its own within several days but may take up to 4-6 weeks. Infections may occur during this time as the fluid may develop bacterial growth. It is NOT appropriate to treat fluid behind ear drums with antibiotics without clear signs of infection.? There is no specific treatment for the fluid itself that is stuck behind ear drums and no bacterial infection.? Common things to try to relieve fluid from middle ear are: Decongestant medications, Antihistamines with decongestants (Zyrtec-D twice daily for 5 days), sour hard candies(war heads/lemon drops), Flonase, pinching nose and gently trying to blow out your nose.? Be sure to drink plenty of fluids and electrolytes, especially if taking over the counter meds. Prescriptions: New meclizine 25 mg tablet 25 mg PO TID PRN (Reason: dizziness) Qty: 21 0RF No Action cholecalciferol (vitamin D3) 25 mcg (1,000 unit) capsule 25 mcg PO DAILY Qty: 90 3RF thiamine HCl (vitamin B1) 100 mg tablet 100 mg PO DAILY Qty: 90 3RF acetaminophen [Tylenol Extra Strength] 500 mg tablet 500 mg PO Q6H PRN (Reason: pain) Qty: 30 0RF pantoprazole 40 mg tablet,delayed release (DR/EC) 40 mg PO DAILY Qty: 90 3RF duloxetine [Cymbalta] 20 mg capsule,delayed release(DR/EC) 20 mg PO DAILY clonidine HCl 0.1 mg tablet 0.1 mg PO DAILY quetiapine 25 mg tablet 25 mg PO BEDTIME ammonium lactate 12 % lotion topical Referrals: Lindsey Gramajo DO [Primary Care Provider, Internal Medicine] Clinical Impression: Concussion; Head injury Interventions: ED Discharge Assessment Last Done: 06/26/25 15:02 Discharge Date/Time: 06/26/25 15:03 Print Language: Malian
[2025-06-26 12:57] LABS: MANUAL DIFF FLAG NO
[2025-06-26 13:00] LABS: Hematocrit 37.6 % (37.0-47.0); Hemoglobin 12.1 g/dl (12.0-16.0); Imm Gran Abs Auto 0.01 X10*3/uL (0.00-0.03); Imm Gran Pct Auto 0.1 % (0.0-0.4); Lymphocytes Absolute Auto 2.0 X10*3/uL (1.2-4.9); Mean Corpuscular HGB Conc 32.2 g/dl (31.0-35.0); Mean Corpuscular Hemoglobin 26.4 pg (27.0-33.0); Mean Corpuscular Volume 82.1 fL (80.0-98.0); NRBC Abs Auto 0.000 X10*3/uL (0.0-0.012); NRBC Pct Auto 0.0 /100WBC (0.0-0.2); Platelet Count 315 X10*3/uL (160-400); Red Blood Count 4.58 X10*6/uL (4.20-5.50); White Blood Count 8.5 X10*3/uL (4.8-10.8)
[2025-06-26 13:22] LABS: Alanine Aminotransferase 21 U/L (0-31); Albumin Level 4.4 g/dL (3.5-5.0); Alkaline Phosphatase 77 U/L (39-117); Anion Gap 11 (12-20); Aspartate Amino Transferase 23 U/L (5-31); Blood Urea Nitrogen 12 mg/dL (9-16); Calcium 9.4 mg/dL (8.4-10.2); Carbon Dioxide 27 mmol/L (22-29); Chloride 106 mmol/L (96-108); Creatinine Clr Calc Pharmacy 138.2; Estimated Glomerular Filt Rate > 60; Magnesium 2.0 mg/dL (1.6-2.6); Potassium 4.0 mmol/L (3.3-5.1); Sodium 140 mmol/L (135-145); Total Protein 7.5 g/dL (6.5-8.0)
[2025-06-26 14:26] VITALS: BP 150/99; PULSE 79; RESP 19; TEMP 36.8; O2SAT 99
[2025-06-26 15:02] VITALS: BP 141/86; PULSE 78; RESP 16; TEMP 36.8; O2SAT 95
--- OUTSIDE RECORDS SUMMARY | 2025-06-26 15:12 | XMS_ITS | Encounter Summary ---
Author Organization [facility] Address [address] [place] [id number] Care Team Providers Care Hospice Administrator Name Role Phone Pcp, No Primary Care Provider Unavailabl e Encounter Details Date Type Department Care Team ([facility] st Contact Info) Description 11/01/2020 Lab Requisition [place] COVID-19 Testing [facility] [address] [place] [address] Carlos Cerda MD [address] [place], [place] [id number] Encounter for laboratory testing for COVID-19 virus [...] in this encounter Results * COVID-19 RT-PCR ([facility]) (11/01/2020 1:19 PM EST) COVID-19 RT-PCR SARS-COV-2 NOT DETECTED Not Detected 11/02/2020 9:00 PM EST [facility] Comment: ADDITIONAL INFORMATION The ANALI COVID-19 RT-PCR Assay is Real-Time Reverse Mix Chemist Polymerase Chain Reaction (actuarial assistant-PCR) for the in vitro qualitative detection of three SARS-Cov-2 target sequences unique to the coronavirus disease 2019 (COVID-19). This is an Emergency Use Authorization (EUA) in vitro diagnostic (IVD) test that has been modified to include the Placeword automated liquid handler. Its analytical performance characteristics have been determined by the financial compliance manager and verified by [facility] in a manner consistent with CLIA [...] at the following links: For Healthcare Providers: https://www.fda.gov/media/825960/download For Patients: https://www.fda.gov/media/112440/download TEST INTERPRETATION Data analysis and interpretation is performed using the [employer] COVID-19 Interpretive Software. SARS-CoV-2 Not Detected: negative [...] included for positive specimens. As per the [employer] COVID-19 Combo Kit EUA documentation, each COVID [...] quarantine. For more information please refer to: https://www.cdc.gov/coronavirus/2019-ncov/lab/faqs.html#Hujnikvlbkum-Xkimzik-ry- Diagn ostic-Tests TEST LIMITATIONS Positive results are [...] system. For further details refer to the [employer] TaqPath COVID-19 Combo Kit EUA submission (https://www.fda.gov/media/913051/download). ----- Test performed by [facility], [address] [place] [address] CLIA# [id number] Bradley Gallo M.D., Ph.D., ABMGG, Clinical Shopping Investigator Microbiology Nasopharyngeal swab / Unknown 11/01/2020 1:19 PM EST 11/01/2020 1:19 PM EST Narrative [facility] - 11/02/2020 9:00 PM EST Performed at [facility], [address] [place] [address], [place], [place], [place] Lic 0695, CLIA [id number] Carlos Cerda MD MICROBIOLOGY - GENERAL ORDERABLE S Final Result [address] [place] [address] documented in this encounter Visit Diagnoses Diagnosis Encounter for laboratory testing for COVID-19 virus documented in this encounter Care Teams Hospice Administrator Relationship Specialty Start Date End Date Pcp, No PCP - General General Medicine 10/22/20 documented as of this encounter
--- OUTSIDE RECORDS SUMMARY | 2025-06-26 15:12 | XMS_ITS | Clinical Summary ---
Author Organization [facility] Address [address] [place] [id number] Phone Care Team Providers Care Manager Mental Health Name Role Phone Unavailable Primary Care Provider [...] intervention , Patient to reach out to [facility] team as needed, Patient to [...] intervention , Patient to reach out to [facility] team as needed, Patient to [...] file Medical Devices Not on file Insurance [facility] C3 [employer] [facility] C[employer] [facility] C3 [employer] [facility] C3 [employer] [facility] C3 ACO Additional Source Comments The information contained in this document represents components of the legal health record. It is not the complete legal health record.[facility]
--- OUTSIDE RECORDS SUMMARY | 2025-06-26 15:12 | XMS_ITS | Clinical Summary ---
Author Organization [facility] Address [address] [place] [id number] Care Team Providers Care Machinist Name Role Phone Pcp, No Primary Care [...] this topic Medical Devices Implanted Type Area Computer Systems Software Architect Device Identifier Shelf Expiration Date Model / Serial / Lot [employer]ae Inspira Cohesive Breast Implant Implanted:Qty: 1 on 11/05/2020 by Carlos Cerda MD at [facility] Breast Right: Breast [employer] 11/05/2024 [id number] / [id number] / Natrelle Inspira Cohesive Breast Implant Implanted:Qty: 1 on 11/05/2020 by Carlos Cerda MD at [facility] Breast Left: Breast [employer] 05/22/2025 [id number] / [id number] / [employer] Insurance [facility] Pushkart on file Care Teams Machinist Relationship Specialty Start Date End Date Pcp, No PCP - General General Medicine 10/22/20
== END 2025-06-26 15:03 | disposition home or self-care (01) ==
PROVIDERS: Physician Assistant Medical; Emergency Provider Emergency Medicine; PCP Family Medicine
DX: S06.0X0A Concussion without loss of consciousness, initial encounter (principal); W10.9XXA Fall (on) (from) unspecified stairs and steps, initial encounter; Y93.9 Activity, unspecified; Y92.9 Unspecified place or not applicable; Y99.9 Unspecified external cause status; R51.9 Headache, unspecified; R42 Dizziness and giddiness; H65.93 Unspecified nonsuppurative otitis media, bilateral; R11.10 Vomiting, unspecified
CPT/HCPCS: 36415; 70450; 80053; 83735; 84702; 85025; 99283; 99284

== ENCOUNTER → 2025-06-26 12:29 | Outpatient (BNV) | payer MEDICAID, SELFPAY | PROVIDERS: PCP Family Medicine; Visit Provider Radiology Diagnostic Radiology | DX: R51.9 Headache, unspecified (principal); R42 Dizziness and giddiness; R11.10 Vomiting, unspecified; W19.XXXA Unspecified fall, initial encounter | CPT/HCPCS: 70450 ==